=== PATIENT | male | born 1955 | race Caucasian/White ===

== ENCOUNTER 2021-06-05 15:52 | Inpatient (IN) | payer MEDICARE, SELFPAY ==
[2021-06-05] VITALS (7 sets, daily range): BP systolic 107–126; BP diastolic 53–74; PULSE 40–153; RESP 18–26; TEMP 36.3–37.1; O2SAT 94–99; BMI 34.7; BMI 34.2
--- NOTE | 2021-06-05 15:57 | EKG12_ITS ---
Test Reason : NAUSEA Blood Pressure : / mmHG Vent. Rate : 147 BPM Atrial Rate : 147 BPM P-R Int : 148 ms QRS Dur : 068 ms QT Int : 260 ms P-R-T Axes : 019 001 053 degrees QTc Int : 406 ms Sinus tachycardia Poor R wave progression Confirmed by AQUILES VALDES, KOJO ([id number]), scientific publications editor LOLI MAGAÑA ([id number]) on 06/06/2021 8:39:38 AM Referred By: KIEL Confirmed By:KOJO KWAN MD
--- NOTE | 2021-06-05 16:00 | CT_ITS ---
EXAM: CT HEAD WITHOUT INTRAVENOUS CONTRAST : 1955 CLINICAL INDICATION: Trauma TECHNIQUE: Multiple axial images were obtained of the head without intravenous contrast. This CT exam was performed using one or more of the following dose reduction techniques: automated exposure control, adjustment of the mA and/or kV according to patient size, and/or use of iterative reconstruction technique. This report was created using Mobile[employer] report generation technology. COMPARISON: None. FINDINGS: BRAIN AND EXTRA-AXIAL SPACES: Ventricles and cortical sulci are prominent in size related to volume loss change. No intra- or extra-axial hemorrhage. No evidence of acute infarct. No intracranial mass or mass effect. There is preservation of the aguilar/white matter interface. Posterior fossa structures are unremarkable. Basal cisterns are patent. BONES/JOINTS: Unremarkable. No discrete lytic or blastic abnormalities. SINUSES: Unremarkable as visualized. Clear. MASTOID AIR CELLS: Unremarkable. Clear. ORBITS: Visualized globes, extraocular muscles, optic nerves and retrobulbar fat appear unremarkable. CT/Brain/Head without Contrast IMPRESSION: No acute abnormality. Individualized dose optimization techniques were used for this CT. at 1652 Reported and signed by: Claude Henderson MD Electronically Signed: Claude Henderson MD at 16:50 EDT Tel , Service support ,
[2021-06-05 18:56] LABS: Bedside Glucose 177 mg/dL (70-110)
--- NOTE | 2021-06-05 19:06 | RAD_ITS ---
EXAM: XR CHEST, 1 VIEW CLINICAL INDICATION: syncope TECHNIQUE: Frontal view of the chest. This report was created using [employer]imus report generation technology. COMPARISON: None. FINDINGS: LUNGS AND PLEURAL SPACES: Unremarkable. No consolidation or edema. No pneumothorax. No effusion. HEART: Unremarkable. Cardiac silhouette not enlarged. MEDIASTINUM: Central airways and mediastinal contour are unremarkable. BONES/JOINTS: Unremarkable. SOFT TISSUES: Unremarkable. RAD/Chest 1 View (Portable) IMPRESSION: No radiographic evidence of acute cardiopulmonary disease. Electronically Signed: Anderson Jara MD at 20:19 EDT , Service support ,
--- NOTE | 2021-06-05 19:07 | EKG12_ITS ---
Test Reason : DYSRHYTHMIA Blood Pressure : / mmHG Vent. Rate : 140 BPM Atrial Rate : 140 BPM P-R Int : 162 ms QRS Dur : 068 ms QT Int : 262 ms P-R-T Axes : 045 009 069 degrees QTc Int : 399 ms Sinus tachycardia Low voltage QRS Poor R wave progression Confirmed by AQUILES VALDES, KOJO ([id number]), editor department LOLI MAGAÑA ([id number]) on 06/08/2021 10:12:40 AM Referred By: ERNESTO Confirmed By:KOJO KWAN MD
--- NOTE | 2021-06-05 19:09 | EDS_ITS ---
HPI History of Present Illness Chief Complaint: Syncope Informant: patient and spouse/S.O. Narrative Narrative: Patient and spouse poor historian with medical history. Reports last 2 days vomiting and diarrhea had noted dark color and appeared bloody. Multiple ones over last 2 days. Today lightheaded in the bathroom passing out hitting his head. Spouse states he passed out a couple more times since that. Denies chest pains or shortness of breath. When asked about blood thinners they are unaware however from review of his medical records here there is no anticoagulation medications. He reports he was referred to Dr. Ansari 2 weeks ago due to reporting blood from vomit and stools. Reports had an upper and lower endoscopy with no acute findings. Denies abdominal pain. Reports current nausea. Denies urinary symptoms. Prior similar symptoms: Yes PFSH PFSH Medical History unable to obtain Home Medications allopurinol 100 mg PO BID 06/05/21 [History Last Taken 06/03/21] atenolol 50 mg PO BID 06/05/21 [History Last Taken 06/03/21] chlorthalidone 25 mg PO DAILY 06/05/21 [History Last Taken 06/03/21] hydrocodone-acetaminophen [[place]] 1 tab PO BID PRN 06/05/21 [History Last Taken Unknown] losartan 100 mg PO DAILY 06/05/21 [History Last Taken 06/03/21] metformin 500 mg PO BID 06/05/21 [History Last Taken 06/03/21] Allergy/AdvReac Type Severity Reaction Status Date / Time No Known Allergies Allergy Verified 06/05/21 15:54 Social History Smoking Status: Former smoker ROS ROS ED Constitutional Constitutional ED: Denies chills, fever(s) or sweats Eyes Eyes: Denies change in vision ENT ENT ED: Denies dysphagia or sore throat Cardiovascular Cardiovascular: Denies chest pain, leg edema, palpitations or racing heartbeat Respiratory/Chest Respiratory/Chest: Denies cough, dyspnea or dyspnea on exertion Gastrointestinal Gastrointestinal: Reports nausea and other Details: Bloody vomit and stools. ; Denies abdominal pain, diarrhea or vomiting Genitourinary Genitourinary ED: Denies dysuria, hematuria or urinary frequency Musculoskeletal Musculoskeletal: Denies back pain, extremity pain or neck pain Integumentary Denies rash or wounds Neurologic Neurologic: Denies headache(s), paresthesias or weakness EXAM Physical Exam Const Vital Signs: 06/05/21 15:54 06/05/21 18:57 06/05/21 20:31 Temperature 97.4 F L Temperature Source Temporal Pulse Rate 153 H 40 L 138 H Respiratory Rate 20 H 18 26 H Respiratory Effort Normal Non-Labored Blood Pressure 125/74 H 118/60 107/61 Blood Pressure Mean 91 79 76 Pulse Ox 99 99 95 Oxygen Delivery Method Room Air Room Air Room Air Positive well nourished and well developed Constitutional Narrative: GCS 15. General Appearance ED: well developed and NAD HEENT Reports moist mucous membranes HEENT Narrative: Left forehead contusion with abrasion. No hemotympanum. normocephalic and atraumatic Eyes PERRL, EOMs intact bilaterally and conjunctivae normal General Eye ED: Yes normal appearance of both eyes and pale conjunctiva Neck no lymphadenopathy and supple General: Negative for tenderness Chest Wall inspection of chest normal Chest: Negative for tenderness Resp normal respiratory effort and normal air movement Effort and Inspection: symmetric chest movement; Negative for respiratory distress Cardio regular rhythm and no murmurs Rate: tachycardic Peripheral Pulses: pulses 2+ throughout GI normal to inspection, nondistended, normoactive bowel sounds and non-tender GI Narrative: Rectal exam no hemorrhoids, no gross bloody stools, dark liquid stools on finger, guaiac pending. Palpation: Negative for guarding or rebound tenderness present Back/Spine no CVA tenderness and no thoracic nor lumbar tenderness Extremity normal to inspection General Extremety ED: Negative for edema or tenderness General Extremity: Negative for edema Neuro oriented x3 and no sensory deficits noted Sensorium / Orientation: awake and alert Skin no rashes or lesions noted and no wounds MDM MDM MDM Narrative Medical decision making narrative: Patient tachycardic dry mucosal membranes give additional IV fluids her heart rate went down to the 130s. EKG sinus tachycardia concerns for potential underlying flutter there is no 5 mg IV Lopressor heart rate went down to the 100s however there was no flutter findings. Hemoccult was positive. Hemoglobin 8.4 with no old for comparison. Labs creatinine of 1.8. Potassium 5.6. Blood pressure stable at this time. Head CT was obtained negative for intracranial process. Chest x-ray negative. Will type and screen. Discussed with hospitalist Dr. Hoyt for admission to PCU. Lab Data Labs: Laboratory Results - last 24 hr 06/05/21 06/05/21 06/05/21 18:48 18:48 18:48 WBC 8.3 RBC 2.28 L Hgb 8.4 L Hct 24.9 L MCV 109.2 H MCH 36.8 H MCHC 33.7 RDW Std Deviation 57.5 H RDW Coeff of Ana 14.5 Plt Count 131 L MPV 11.9 PT 20.4 H INR 1.8 APTT 31.5 Sodium Potassium Chloride Carbon Dioxide Anion Gap BUN Creatinine Estim Creat Clear Calc Est GFR (MDRD) Af Amer Est GFR (MDRD) Non-Af BUN/Creatinine Ratio Glucose Calcium Total Bilirubin AST ALT Alkaline Phosphatase Total Protein Albumin Globulin Albumin/Globulin Ratio Urine Color Urine Clarity Urine pH Ur Specific [place] Urine Protein Urine Glucose (UA) Urine Ketones Urine Occult Blood Urine Nitrite Urine Bilirubin Urine Urobilinogen Ur Leukocyte Esterase Urine RBC Urine WBC Ur Squamous Epith Cells Urine Bacteria Urine Mucus POC Glucose 177 H 06/05/21 06/05/21 18:48 19:21 WBC RBC Hgb Hct MCV MCH MCHC RDW Std Deviation RDW Coeff of Ana Plt Count MPV PT INR APTT Sodium 137 Potassium 5.6 H Chloride 102 Carbon Dioxide 21.0 Anion Gap 14 BUN 51 H Creatinine 1.86 H Estim Creat Clear Calc 40.88 Est GFR (MDRD) Af Amer 47 L Est GFR (MDRD) Non-Af 39 L BUN/Creatinine Ratio 27.4 H Glucose 185 H Calcium 9.2 Total Bilirubin 4.10 H AST 55 H ALT 31 Alkaline Phosphatase 65 Total Protein 6.4 Albumin 2.3 L Globulin 4.1 Albumin/Globulin Ratio 0.6 L Urine Color Dk Yello Urine Clarity Clear Urine pH 5.0 Ur Specific [place] 1.015 Urine Protein 15 H Urine Glucose (UA) Normal Urine Ketones 50 H Urine Occult Blood 10 H Urine Nitrite Negative Urine Bilirubin Negative Urine Urobilinogen Normal Ur Leukocyte Esterase 25 H Urine RBC 0 SEEN Urine WBC 0 SEEN Ur Squamous Epith Cells 0-5 SEEN Urine Bacteria 1+ Urine Mucus 0 SEEN POC Glucose Radiography Chest X-Ray - ED: 1 View, Read by ED Physician and Read by Radiologist Diagnostic Testing: Radiology Impression Brain CT 06/05/21 16:00 IMPRESSION: No acute abnormality. Individualized dose optimization techniques were used for this CT. at 1652 Reported and signed by: Claude Henderson MD Electronically Signed: Claude Henderson MD at 16:50 EDT Tel , Service support , Chest X-Ray 06/05/21 19:06 IMPRESSION: No radiographic evidence of acute cardiopulmonary disease. Electronically Signed: Anderson Jara MD at 20:19 EDT , Service support , EKG Initial EKG: Attestation: I personally reviewed and interpreted this EKG as follows: Comments: Sinus tachycardia rate of 147, no ST or T wave changes. Discharge Plan Dx/Rx/DC Orders Clinical Impression: Syncope, GIB (gastrointestinal bleeding), Tachycardia, Anemia, MARIA DEL ROSARIO (acute kidney injury), CHI (closed head injury) Disposition Disposition: Acute Care Hospital [facility] Discharge Date/Time: 06/05/21 22:35
[2021-06-05] MEDS: Ondansetron 4 MG/2 ML Vial IV (19:19)
[2021-06-05 19:23] LABS: Hematocrit 24.9 % (40-54); Hemoglobin 8.4 g/dL (13.0-16.5); Mean Corp Hgb Conc 33.7 g/dL (32-36); Mean Corpuscular Hgb 36.8 pg (27.0-32.0); Mean Corpuscular Volume 109.2 fL (80-94); Mean Platelet Vol. 11.9 fl (6.2-12.0); Platelet Count 131 K/mm3 (150-450); RBC Distribution Width CV 14.5 % (11.6-14.6); RBC Distribution Width SD 57.5 fl (35.1-43.9); Red Blood Count 2.28 M/mm3 (4.6-6.2); White Blood Count 8.3 K/mm3 (4.4-11.0)
[2021-06-05 19:33] LABS: ALB/GLOB Ratio 0.6 RATIO (0.9-2.4); AST(SGOT) 55 U/L (15-37); Alanine Aminotransfer ALT/SGPT 31 U/L (16-61); Albumin, Serum 2.3 g/dL (3.2-5.0); Alkaline Phosphatase 65 U/L (45-117); Anion Gap 14 (5-15); BUN 51 mg/dL (7-18); BUN/Creat Ratio 27.4 RATIO (10-20); Calcium,Total 9.2 mg/dL (8.5-10.1); Chloride 102 mmol/L (98-107); Creatinine, Serum 1.86 mg/dL (0.70-1.30); EST Glomerular Filtration Rate 39 mL/min (>60); Est Glom Filt Rate - Afr Amer 47 mL/min (>60); Estimated Creatinine Clearance 40.88 ml/min; Globulin 4.1 g/dL (2.2-4.2); Glucose 185 mg/dL (74-106); Potassium 5.6 mmol/L (3.5-5.1); Protein, Total 6.4 g/dL (6.4-8.2); Sodium Level 137 mmol/L (136-145)
[2021-06-05 19:34] LABS: International Normalized Ratio 1.8; Prothrombin Time (Protime)PT. 20.4 SECONDS (11.7-14.9)
[2021-06-05 19:35] LABS: Partial Thromboplast Time 31.5 Seconds (24.1-36.2)
[2021-06-05 19:37] LABS: Mucous, Urine 0 SEEN /hpf (<or=2+); Red Blood Cells-Urine 0 SEEN /hpf (0-5); White Blood Cells 0 SEEN /hpf (0-5)
[2021-06-05 19:39] LABS: Glucose, Dipstick Normal (Normal); Ketone-Dipstick 50 mg/dl (Negative); Leukocyte Esterase-Dipstick 25 /ul (Negative); Nitrite-Dipstick Negative (Negative); Occult Blood-Urine 10 /ul (Negative); Protein-Dipstick 15 mg/dl (Negative); Specific Gravity, Urine 1.015 (1.002-1.030); Urine Bilirubin Dipstick Negative (Negative); Urine Urobilinogen Normal (Normal)
[2021-06-05 19:46] LABS: Color, Urine Dk Yello (Yellow)
[2021-06-05 19:47] LABS: Urine Clarity Clear (Clear)
[2021-06-05 20:39] LABS: Bacteria 1+ /hpf (None Seen); Squamous Epithelial Cells - UA 0-5 SEEN /hpf (0-5)
[2021-06-05] MEDS: Metoclopramide 10 MG/2 ML Vial 5 MG IV (20:43)
[2021-06-05] MEDS: Metoprolol Tartrate 5 MG/5 ML Vial IV (20:44)
--- NOTE | 2021-06-05 21:10 | HP.PCM_ITS ---
HPI - General HPI Narrative MERCEDES SHEPARD, is a 65 M who presents to the emergency room with a chief complaint of passing out hitting his head. The patient has had hematemesis and hematochezia today. The patient had a negative upper and lower endoscopy several weeks ago by Dr. Dunia Ansari. His current hemoglobin is 8.4. He denies any chest pain shortness of breath and fevers or chills. He has a negative rapid Covid test here in the emergency room he will be admitted for gastrointestinal bleed. [facility] Medical History unable to obtain Home Medications allopurinol 100 mg PO BID 06/05/21 [History Last Taken 06/03/21] atenolol 50 mg PO BID 06/05/21 [History Last Taken 06/03/21] chlorthalidone 25 mg PO DAILY 06/05/21 [History Last Taken 06/03/21] hydrocodone-acetaminophen [[place]] 1 tab PO BID PRN 06/05/21 [History Last Taken Unknown] losartan 100 mg PO DAILY 06/05/21 [History Last Taken 06/03/21] metformin 500 mg PO BID 06/05/21 [History Last Taken 06/03/21] Allergy/AdvReac Type Severity Reaction Status Date / Time No Known Allergies Allergy Verified 06/05/21 15:54 Social History Smoking Status: Former smoker ROS Constitutional Constitutional: Denies chills or fever(s) ENT HEENT: Denies dysphagia Cardiovascular Cardiovascular: Denies chest pain Respiratory/Chest Respiratory/Chest: Reports hemoptysis; Denies shortness of breath at rest Gastrointestinal Gastrointestinal: Reports hematemesis and hematochezia; Denies abdominal pain Genitourinary Genitourinary: Denies dysuria Musculoskeletal Musculoskeletal: Denies back pain Integumentary Integumentary: Denies jaundice Neurologic Neurologic: Denies abnormal speech Psychiatric Psychiatric: Denies anxiety Vital Signs Vital Signs Vital Signs: 06/05/21 15:54 06/05/21 18:57 06/05/21 20:31 Temperature 97.4 F L Temperature Source Temporal Pulse Rate 153 H 40 L 138 H Respiratory Rate 20 H 18 26 H Respiratory Effort Normal Non-Labored Blood Pressure 125/74 H 118/60 107/61 Blood Pressure Mean 91 79 76 Pulse Ox 99 99 95 Oxygen Delivery Method Room Air Room Air Room Air Weight Weight: 242 lb Body Mass Index (BMI) 34.7 Physical Exam Const alert, oriented x3 and no apparent distress General Appearance: cooperative HEENT normocephalic and head/scalp atraumatic Eyes PERRL Neck supple Lymph Lymphatic: no lymphadenopathy noted Resp normal respiratory effort, normal air movement and clear to auscultation bilaterally Cardio S1 normal heart sound, S2 normal heart sound and no murmurs Rate: tachycardic GI soft to palpation and non-tender Extremity normal capillary refill Skin Skin Narrative: contusion on forehead Neuro CN's II-XII intact bilaterally Psych affect normal Appearance: appropriate Results Lab / Micro Data Result Diagrams: 06/05/21 18:48 06/05/21 18:48 Labs: Laboratory Results - last 24 hr 06/05/21 18:48: POC Glucose 177 H 06/05/21 18:48: WBC 8.3, RBC 2.28 L, Hgb 8.4 L, Hct 24.9 L, MCV 109.2 H, MCH 36.8 H, MCHC 33.7, RDW Std Deviation 57.5 H, RDW Coeff of Ana 14.5, Plt Count 131 L, MPV 11.9 06/05/21 18:48: PT 20.4 H, INR 1.8, APTT 31.5 06/05/21 18:48: Sodium 137, Potassium 5.6 H, Chloride 102, Carbon Dioxide 21.0, Anion Gap 14, BUN 51 H, Creatinine 1.86 H, Estim Creat Clear Calc 40.88, Est GFR (MDRD) Af Amer 47 L, Est GFR (MDRD) Non-Af 39 L, BUN/Creatinine Ratio 27.4 H, Glucose 185 H, Calcium 9.2, Total Bilirubin 4.10 H, AST 55 H, ALT 31, Alkaline Phosphatase 65, Total Protein 6.4, Albumin 2.3 L, Globulin 4.1, Albumin/Globulin Ratio 0.6 L 06/05/21 19:21: Urine Color Dk Yello, Urine Clarity Clear, Urine pH 5.0, Ur Specific [place] 1.015, Urine Protein 15 H, Urine Glucose (UA) Normal, Urine Ketones 50 H, Urine Occult Blood 10 H, Urine Nitrite Negative, Urine Bilirubin Negative, Urine Urobilinogen Normal, Ur Leukocyte Esterase 25 H, Urine RBC 0 SEEN, Urine WBC 0 SEEN, Ur Squamous Epith Cells 0-5 SEEN, Urine Bacteria 1+, Urine Mucus 0 SEEN Micro: Microbiology 06/05/21 19:21 Stool Stool Occult Blood (ABRAHAM) - Final Occult Blood Positive 06/05/21 19:21 Nasal Secretion SARS-CoV-2 Antigen (Rapid) - Final Radiology Impression Brain CT 06/05/21 16:00 IMPRESSION: No acute abnormality. Individualized dose optimization techniques were used for this CT. at 1652 Reported and signed by: Claude Henderson MD Electronically Signed: Claude Henderson MD at 16:50 EDT Tel , Service support , Chest X-Ray 06/05/21 19:06 IMPRESSION: No radiographic evidence of acute cardiopulmonary disease. Electronically Signed: Anderson Jara MD at 20:19 EDT , Service support , Assessment & Plan Assessment/Plan (1) GIB (gastrointestinal bleeding): (2) Tachycardia: (3) Syncope: (4) Anemia: PLAN: 1. Gastrointestinal bleed?admit patient to progressive care unit, consult Dr. Leon for GI evaluation, make patient n.p.o., IV Protonix 40 mg twice daily, type cross and screen 2 units packed red blood cells, H&H every 4 hours. Will add total iron binding capacity, serum ferritin and total iron prior to transfusion, CBC, CMP, PT/INR repeat in the morning 2. Tachycardia secondary to anemia 3. Syncopal episode?suspect secondary to above 4. DVT prophylaxis?SCDs? Charges/Coding Visit Charges Inpatient E&M: 91326 Init Hosp L2
--- NOTE | 2021-06-05 22:30 | ED.RN ---
assisted to BSC, large tarry black stool.
[2021-06-05 22:42] LABS: Ferritin 1017 ng/mL (26-388); Iron 195 ug/dL (65-175); Iron Binding Capacity,Total 207 ug/dL (250-450)
[2021-06-05] MEDS: 0.9% Saline Lock 10 ML Syringe IV (23:38)
[2021-06-05] MEDS: 0.9% Normal Saline 1,000 ML 125 ML IV (23:38)
[2021-06-06] VITALS (26 sets, daily range): BP systolic 95–144; BP diastolic 54–75; PULSE 110–152; RESP 12–20; TEMP 36.2–37.2; O2SAT 90–98
[2021-06-06 01:01] LABS: Hemoglobin 7.7 g/dL (13.0-16.5)
[2021-06-06 04:16] LABS: Absolute Lymphocyte Count 1.37 X10^3/uL (0.83-4.51); Absolute Neutrophil Count 6.2 X10^3/uL (2.0-7.7); Eosinophil# 0.01 X10^3/uL; Eosinophils% 0.1 % (0-5); Hematocrit 21.2 % (40-54); Hemoglobin 7.3 g/dL (13.0-16.5); Lymphocyte # 1.37 X10^3/ul (0.83-4.51); Lymphocyte % 16.1 % (19-41); Mean Corp Hgb Conc 34.4 g/dL (32-36); Mean Corpuscular Hgb 37.1 pg (27.0-32.0); Mean Corpuscular Volume 107.6 fL (80-94); Mean Platelet Vol. 11.3 fl (6.2-12.0); Monocyte# 0.85 X10^3/uL; NRBC Flagged by Analyzer 0 % (0-5); Neutrophil # 6.23 X10^3/uL (2.7-7.7); Neutrophil % 73.3 % (47-70); Platelet Count 112 K/mm3 (150-450); RBC Distribution Width CV 14.7 % (11.6-14.6); RBC Distribution Width SD 57.6 fl (35.1-43.9); Red Blood Count 1.97 M/mm3 (4.6-6.2); White Blood Count 8.5 K/mm3 (4.4-11.0)
[2021-06-06 04:35] LABS: ALB/GLOB Ratio 0.6 RATIO (0.9-2.4); AST(SGOT) 52 U/L (15-37); Alanine Aminotransfer ALT/SGPT 28 U/L (16-61); Albumin, Serum 2.1 g/dL (3.2-5.0); Alkaline Phosphatase 57 U/L (45-117); Anion Gap 9 (5-15); BUN 56 mg/dL (7-18); BUN/Creat Ratio 32.2 RATIO (10-20); Calcium,Total 8.7 mg/dL (8.5-10.1); Chloride 108 mmol/L (98-107); Creatinine, Serum 1.74 mg/dL (0.70-1.30); EST Glomerular Filtration Rate 42 mL/min (>60); Est Glom Filt Rate - Afr Amer 51 mL/min (>60); Globulin 3.8 g/dL (2.2-4.2); Glucose 155 mg/dL (74-106); Magnesium 1.2 mg/dL (1.6-2.6); Potassium 5.3 mmol/L (3.5-5.1); Protein, Total 5.9 g/dL (6.4-8.2); Sodium Level 138 mmol/L (136-145)
[2021-06-06 05:07] LABS: International Normalized Ratio 1.8; Prothrombin Time (Protime)PT. 20.4 SECONDS (11.7-14.9)
--- NOTE | 2021-06-06 07:35 | US_ITS ---
STUDY: ABDOMINAL ULTRASOUND - RIGHT UPPER QUADRANT REASON FOR VISIT: Male, 65 years old upper GI bleed and possible cirrhosis TECHNIQUE: Ultrasound evaluation of the right upper quadrant was performed with real-time and static aguilar-scale imaging. TECHNICAL QUALITY: Adequate. COMPARISON: None. FINDINGS: Limited study due to patient''s body habitus. Liver: The liver measures 15.8 cm. The liver demonstrates increased heterogeneous echogenicity with mild irregularity along its margins suggestive of cirrhotic changes.. The bile ducts are within normal limits. There is hepatic color flow. The direction of portal flow is hepatopetal. There is no demonstrated mass lesion. Gallbladder: The gallbladder was not visualized, patient denies abdominal surgery. Common Bile Duct (C.B.D.): The common bile duct measures 3 mm. Right Kidney: Normal size of the right kidney. The right kidney measures 10.3 x 5.3 x 5.0 cm. Normal renal cortex. The right cortex measures 1.4 cm. Simple cortical cyst visualized measuring 1.7 x 1.3 x 1.4 cm. There is no demonstrated renal mass. There is no right hydronephrosis. US/Liver IMPRESSION: Hepatic steatosis with suggestion of cirrhosis with no evidence of hepatic masses. 1.7 cm simple cortical cyst in the right kidney. No evidence of acute abdominal pathology. Electronically Signed: Rodney Crowley MD at 15:23 EDT Tel , Service support ,
--- NOTE | 2021-06-06 10:25 | CASEMGMT ---
FRANCISCO MEHTA assessment: Face to Face with patient for initial transition planning/care coordination assessment. FRANCISCO MEHTA introduced self and role at [facility], pt voices understanding and consents to assessment. Pt is sitting up in bed on room air in no distress. Pt w/ multiple abrasions to left forehead s/p syncope/fall. Pt is A/O x4 and answers all questions appropriately. Care providers, pharmacy, and demographics verified. Presentation: Pt brought in by EMS for syncope w/ fall,, head injury-pt w/ dark vomit in triage Admitting dx: Syncope, GI bleeding PCP: Samm Specialists: Elan, surgeon, multiple other [facility] physicians Preferred [facility]acy: [facility] Insurance: [facility] A/B Prescription Benefit: No Rx coverage and states no concerns with getting meds. Living Will/HPOA: Pt states does not have LW/HPOA but is interested in AD info. AD info provided. LNOK: Tamy Salcido, Living Arrangements: Pt lives with in 2 story home and states no concerns at home. Pt is independent with ADL's. Transportation: Pt drives self and states no transportation concerns. DME/HHC: Pt states no current DME or need for any further DME. Pt states no hx of HHC or SNF. Pt states no concerns with going home at time of discharge. 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 Pt states does not smoke cigarettes or drink ETOH. Pt voices no further concerns/needs. CM to follow for any further discharge planning/needs. Advised pt to ask for CM if any further questions/concerns/needs arise, voices understanding. Pt Goal: Home Plan[place] FRANCISCO MEHTA
--- NOTE | 2021-06-06 12:17 | PCM.PN.HOSP ---
Documented by User: Colton ALONZO 06/06/21 12:28 Subjective Subjective Patient is a 65-year-old male comfortably resting in bed, alert and orient x3. Patient denies development of any new symptoms overnight and does not appear to be in acute distress. Denies chest pain, shortness of breath, palpitations, hemoptysis, sputum production, fever, chills, N/V/D. Objective Data Objective Data Vital Signs: Vital Signs Temp Pulse Resp BP Pulse Ox 98.6 F 127 H 16 139/74 H 97 06/06/21 12:07 06/06/21 12:07 06/06/21 12:07 06/06/21 12:07 06/06/21 12:07 Oxygen Delivery Method Room Air Weight: 238 lb 12.17 oz Body Mass Index (BMI) 34.2 Intake & Output: Intake and Output for Last 24 Hours 06/04/21 06/05/21 06/06/21 23:59 23:59 23:59 Intake Total 600 / 600 1328.75 / 1328.75 Output Total 400 / 400 Balance 600 / 400 928.75 / 928.75 Lab / Micro Data Result Diagrams: 06/06/21 03:54 06/06/21 03:54 Labs: Laboratory Results - last 24 hr 06/05/21 18:48: POC Glucose 177 H 06/05/21 18:48: WBC 8.3, RBC 2.28 L, Hgb 8.4 L, Hct 24.9 L, MCV 109.2 H, MCH 36.8 H, MCHC 33.7, RDW Std Deviation 57.5 H, RDW Coeff of Ana 14.5, Plt Count 131 L, MPV 11.9 06/05/21 18:48: PT 20.4 H, INR 1.8, APTT 31.5 06/05/21 18:48: Sodium 137, Potassium 5.6 H, Chloride 102, Carbon Dioxide 21.0, Anion Gap 14, BUN 51 H, Creatinine 1.86 H, Estim Creat Clear Calc 40.88, Est GFR (MDRD) Af Amer 47 L, Est GFR (MDRD) Non-Af 39 L, BUN/Creatinine Ratio 27.4 H, Glucose 185 H, Calcium 9.2, Total Bilirubin 4.10 H, AST 55 H, ALT 31, Alkaline Phosphatase 65, Total Protein 6.4, Albumin 2.3 L, Globulin 4.1, Albumin/Globulin Ratio 0.6 L 06/05/21 19:21: Urine Color Dk Yello, Urine Clarity Clear, Urine pH 5.0, Ur Specific [place] 1.015, Urine Protein 15 H, Urine Glucose (UA) Normal, Urine Ketones 50 H, Urine Occult Blood 10 H, Urine Nitrite Negative, Urine Bilirubin Negative, Urine Urobilinogen Normal, Ur Leukocyte Esterase 25 H, Urine RBC 0 SEEN, Urine WBC 0 SEEN, Ur Squamous Epith Cells 0-5 SEEN, Urine Bacteria 1+, Urine Mucus 0 SEEN 06/05/21 22:00: Blood Type O POSITIVE, Antibody Screen NEGATIVE 06/05/21 22:00: Iron 195 H, TIBC 207 L, Ferritin 1017 H 06/05/21 22:00: Crossmatch See Detail 06/06/21 00:36: Hgb 7.7 L, Hct 23.0 L 06/06/21 03:54: WBC 8.5, RBC 1.97 L, Hgb 7.3 L, Hct 21.2 L, MCV 107.6 H, MCH 37.1 H, MCHC 34.4, RDW Std Deviation 57.6 H, RDW Coeff of Ana 14.7 H, Plt Count 112 L, MPV 11.3, Immature Gran % (Auto) 0.500, Neut % (Auto) 73.3 H, Lymph % (Auto) 16.1 L, [place] % (Auto) 10.0, Eos % (Auto) 0.1, Baso % (Auto) 0.0, Absolute Neuts (auto) 6.2, Absolute Lymphs (auto) 1.37, Nucleated RBC % 0 06/06/21 03:54: Sodium 138, Potassium 5.3 H, Chloride 108 H, Carbon Dioxide 21.0, Anion Gap 9, BUN 56 H, Creatinine 1.74 H, Estim Creat Clear Calc 43.70, Est GFR (MDRD) Af Amer 51 L, Est GFR (MDRD) Non-Af 42 L, BUN/Creatinine Ratio 32.2 H, Glucose 155 H, Calcium 8.7, Magnesium 1.2 L, Total Bilirubin 3.20 H, AST 52 H, ALT 28, Alkaline Phosphatase 57, Total Protein 5.9 L, Albumin 2.1 L, Globulin 3.8, Albumin/Globulin Ratio 0.6 L 06/06/21 03:54: PT 20.4 H, INR 1.8 Micro: Microbiology 06/05/21 19:21 Stool Stool Occult Blood (ABRAHAM) - Final Occult Blood Positive 06/05/21 19:21 Nasal Secretion SARS-CoV-2 Antigen (Rapid) - Final Radiography Diagnostic Testing: Radiology Impression Brain CT 06/05/21 16:00 IMPRESSION: No acute abnormality. Individualized dose optimization techniques were used for this CT. at 1652 Reported and signed by: Claude Henderson MD Electronically Signed: Claude Henderson MD at 16:50 EDT Tel , Service support , Chest X-Ray 06/05/21 19:06 IMPRESSION: No radiographic evidence of acute cardiopulmonary disease. Electronically Signed: Anderson Jara MD at 20:19 EDT , Service support , Physical Exam Const alert, oriented x3 and no apparent distress HEENT HEENT Narrative: 6 cm bruise on the left side of patient's forehead. Head and Scalp: normocephalic Eyes PERRL, EOMs intact bilaterally and conjunctivae normal Neck no lymphadenopathy, supple and no JVD Resp normal respiratory effort, no retractions, no use of accessory muscles and clear to auscultation bilaterally Cardio no murmurs, no JVD and peripheral pulses 2+ throughout Rate: tachycardic GI normal to inspection, nondistended, normoactive bowel sounds, soft to palpation and non-tender Extremity normal to inspection, full ROM and no clubbing, cyanosis or edema Skin no rashes or lesions noted, no wounds and skin turgor normal Neuro CN's II-XII intact bilaterally Psych affect normal Assessment & Plan Assessment/Plan (1) Anemia: (2) Syncope: (3) Tachycardia: (4) GIB (gastrointestinal bleeding): PLAN: Day 1 Discharge plan: Current plan is for patient to discharge home 1) GI Bleed Presented to the hospital on 06/05 with episodes of hematemesis and hematochezia. Dr. Leon consulted on admission. Currently awaiting results from liver ultrasound. Patient's hemoglobin dropped from 8.4 on admission to 7.3 this morning. 1 unit of PRBCs currently transfusing, IV fluids and PPI initiated on admission. 2) Anemia in the setting of GI bleed Hemoglobin currently 7.3, after dropping from 8.4 on admission. Currently transfusing 1 unit of PRBCs, serial H&H's ordered, patient's heart rate is elevated but BP is currently stable. Continue trending H&H, CBC in a.m. 3) tachycardia Secondary to anemia, continue admission to PCU for continued cardiac monitoring. 4) syncopal episode with fall Syncopal episode likely secondary to the above. Patient has a 6 cm bruise on the left side of his forehead. Patient denies any focal neurological deficits or complaints. Brain CT obtained on admission and did not demonstrate any acute abnormality. DVT prophylaxis - not indicated Patient seen by Colton Munoz PA-C, under the supervision of Dr. Vigil. Documented by User: Dr. Curt Vigil, 06/06/21 15:16 Subjective Subjective Feels well at present. Objective Data Lab / Micro Data Result Diagrams: 06/06/21 03:54 06/06/21 03:54 Physical Exam Const alert Resp normal respiratory effort, no retractions, no use of accessory muscles and clear to auscultation bilaterally Cardio regular rate, regular rhythm, S1 normal heart sound and S2 normal heart sound GI normal to inspection, nondistended, normoactive bowel sounds, soft to palpation, non-tender and non-distended Extremity normal to inspection Neuro Sensorium / Orientation: awake and alert Assessment & Plan Assessment/Plan (1) Anemia: (2) Syncope: (3) Tachycardia: (4) GIB (gastrointestinal bleeding): PLAN: Patient seen and examined independently. Data and vitals reviewed. I agree with the above note by the physician operations assistant. 1. GI bleed Currently resolved at present GI consult 2. Acute blood loss anemia Status post 2 units Continue to monitor Charges/Coding Visit Charges Inpatient E&M: 45514 Subs Hosp L2
[2021-06-06] MEDS: Lactated Ringers 1,000 ML 100 ML IV (14:00)
--- NOTE | 2021-06-06 14:29 | PCS.PANDOC ---
PANDEMIC DOCUMENTATION INITIATED: Date: 04/17/2021 Time: 190
--- NOTE | 2021-06-06 15:12 | OP.CCLET_ITS ---
05/03/2022 Anthony Quijano Re : Upper GI endoscopy procedure for Julia Salcido Alvinar Samm This procedure was performed on Sunday, June 06, 2021. My impressions and recommendations are as follows: Impressions : - Recently bleeding grade II esophageal varices. Completely eradicated. Banded. - Portal hypertensive gastropathy. - Normal second portion of the duodenum. - No specimens collected. Recommendations : - [facility]. - Clear liquid diet today. - Continue present medications. My findings are described in the full procedure note, which is enclosed. If I can be of further assistance, please feel free to contact me at . Sincerely, Jerry Leon, 06/06/2021 3:12:01 PM This report has been signed electronically.
--- NOTE | 2021-06-06 15:12 | OP.EGD_ITS ---
Patient Name: Julia Salcido Procedure Date: 06/06/2021 2:38 PM Date of : 1955 Age: 65 Procedure: Upper GI endoscopy Indications: Hematemesis Providers: Jerry Leon DO Medicines: Monitored Anesthesia Care Patient Profile: This is a 65 year old male. Refer to note in patient chart for documentation of history and physical. Patient has symptoms of acute vomiting. He is status post EGD (normal) one year ago. Complications: No immediate complications. Procedure: Pre-Anesthesia Assessment: - Prior to the procedure, a History and Physical was performed, and patient medications and allergies were reviewed. The patient is competent. The risks and benefits of the procedure and the sedation options and risks were discussed with the patient. All questions were answered and informed consent was obtained. Patient identification and proposed procedure were verified by the physician in the pre-procedure area. Mental Status Examination: normal. Airway Examination: normal oropharyngeal airway and neck mobility. Respiratory Examination: clear to auscultation. CV Examination: tachycardia noted. Prophylactic Antibiotics: The patient does not require prophylactic antibiotics. Prior Anticoagulants: The patient has taken no previous anticoagulant or antiplatelet agents. ASA Grade Assessment: II - A patient with mild systemic disease. After reviewing the risks and benefits, the patient was deemed in satisfactory condition to undergo the procedure. The anesthesia plan was to use moderate sedation / analgesia (conscious sedation). Immediately prior to administration of medications, the patient was re-assessed for adequacy to receive sedatives. The heart rate, respiratory rate, oxygen saturations, blood pressure, adequacy of pulmonary ventilation, and response to care were monitored throughout the procedure. The physical status of the patient was re-assessed after the procedure. After obtaining informed consent, the endoscope was passed under direct vision. Throughout the procedure, the patient's blood pressure, pulse, and oxygen saturations were monitored continuously. The gastroscope was introduced through the mouth, and advanced to the second part of duodenum. The upper GI endoscopy was accomplished without difficulty. The patient tolerated the procedure well. Moderate Sedation: Moderate (conscious) sedation was administered by the endoscopy nurse and supervised by the endoscopist. The patient's oxygen saturation, heart rate, blood pressure and response to care were monitored. Scope In: 2:55:20 PM Scope Out: 3:04:03 PM Total Procedure Duration Time 0 hours 8 minutes 43 seconds Findings: Three columns of non-bleeding grade II varices were found in the lower third of the esophagus and in the distal esophagus,. Stigmata of recent bleeding were evident and red rosetta signs were present. Two bands were successfully placed with complete eradication, resulting in deflation of varices. There was no bleeding during the procedure. Severe portal hypertensive gastropathy was found in the stomach. The second portion of the duodenum was normal. Impression: - Recently bleeding grade II esophageal varices. Completely eradicated. Banded. - Portal hypertensive gastropathy. - Normal second portion of the duodenum. - No specimens collected. Recommendation: - [facility]. - Clear liquid diet today. - Continue present medications. Procedure Code(s): --- Professional --- 09089, Esophagogastroduodenoscopy, flexible, transoral; with band ligation of esophageal/gastric varices CPT copyright 2017 [employer]. All rights reserved. The codes documented in this report are preliminary and upon remote inpatient coder review may be revised to meet current compliance requirements. Jerry Leon DO 06/06/2021 3:12:01 PM This report has been signed electronically. Number of Addenda: 1 Note Initiated On: 06/06/2021 2:38 PM Addendum Number: 1 Addendum Date: 05/03/2022 4:18:35 PM MAC was used instead of moderate sedation for this patient. Jerry Leon DO 05/03/2022 4:18:39 PM This report has been signed electronically.
[2021-06-06] MEDS: 0.9% Normal Saline 1,000 ML 125 ML IV (16:11)
--- NOTE | 2021-06-06 16:30 | EX.PCM.CON.G ---
HPI Consult Data Date of Consult: 06/06/21 HPI Narrative HPI Narrative: MERCEDES SHEPARD, is a 65 M who presents to the emergency room with a chief complaint of passing out hitting his head. Patient has been dealing with anemia for the past year. He had an episode of upper GI bleeding about a month and a half ago and was discovered to be anemic. He underwent an upper and lower endoscopy and no etiology of his bleeding was seen. He vomited up blood last night and then passed out and hit his head. When he came into the ED he had a hematoma on his head. CT scan of the head did not show any intracranial abnormalities. He had a chest x-ray did not show any signs of infection. When I called to see him I noted that his LFTs were significantly high and consistent with hepatocellular injury. He says that he does not drink excessively. He says no more than 2 drinks a day. He also has a history of diabetes mellitus. He has no family history of liver disease. He has not received any blood transfusions. He has not had any recent travel. He did have an episodes of diarrhea but it it got better. His hemoglobin was 8.4 and admission and this morning it is 7.8. He had no signs of bleeding overnight. He also suffers from gouty arthritis and takes allopurinol. He does not take any pain medicine on a daily basis. His labs were consistent with a bicytopenia and a macrocytic anemia. His labs are also consistent with acute kidney injury. [facility] Medical History unable to obtain Home Medications allopurinol 100 mg PO BID 06/05/21 [History Last Taken 06/03/21] atenolol 50 mg PO BID 06/05/21 [History Last Taken 06/03/21] chlorthalidone 25 mg PO DAILY 06/05/21 [History Last Taken 06/03/21] hydrocodone-acetaminophen [[place]] 1 tab PO BID PRN 06/05/21 [History Last Taken Unknown] losartan 100 mg PO DAILY 06/05/21 [History Last Taken 06/03/21] metformin 500 mg PO BID 06/05/21 [History Last Taken 06/03/21] Allergy/AdvReac Type Severity Reaction Status Date / Time No Known Allergies Allergy Verified 06/05/21 15:54 Social History Smoking Status: Former smoker ROS Review of Systems ROS Unobtainable: other Constitutional Constitutional: Denies fatigue, fever(s), poor appetite, weight gain or weight loss ENT HEENT: Denies mouth lesions Cardiovascular Cardiovascular: Denies abdominal bloating, abdominal edema or abdominal pain Respiratory/Chest Respiratory/Chest: Denies change in mental status, change in phlegm color, chest congestion or chest tightness Gastrointestinal Gastrointestinal: Denies belching, bloating, change in bowel habits, change in stool character, chewing difficulty, coffee ground emesis, constipation, cramping, diarrhea, dyspepsia, dysphagia, early satiety, excessive flatus, fecal incontinence, heartburn, hematemesis, hematochezia, hemorrhoids, loose stools, melena, nausea, odynophagia, rectal bleeding, tenesmus, vomiting or weight changes Genitourinary Genitourinary: Denies abdominal discomfort, burning urination or itching Musculoskeletal Musculoskeletal: Reports as per HPI; Denies muscle weakness or myalgias Integumentary Integumentary: Denies jaundice Neurologic Neurologic: Denies lack of coordination or weakness Psychiatric Psychiatric: Denies confusion, depression, memory loss, mood swings, paranoia or suicidal ideation Endocrine Endocrinology: Denies systems reviewed and no addt'l complaints, except as documented Hematologic/Lymphatic Hematologic/Lymphatic: Denies anemia, easy bleeding, easy bruising or lymphadenopathy Allergic/Immunologic Allergic/Immunologic: Denies systems reviewed and no addt'l complaints, except as documented Physical Exam Const alert General Appearance: cooperative Orientation / Consciousness: oriented to person HEENT hearing grossly normal bilaterally Head and Scalp: normal to inspection Face and Sinus: face symmetric Nose: external nose normal Mouth: oral and palatal mucosa normal Eyes conjunctivae normal General Eye: normal appearance of both eyes Neck full ROM General: normal visual inspection Lymph Lymphatic: no lymphadenopathy noted Chest inspection of chest normal and palpation of chest normal Chest: symmetrical chest wall rise Resp normal respiratory effort Effort and Inspection: able to speak in complete sentences Cardio Cardio Narrative: Resting tachycardia GI non-distended Percussion: normal to percussion Rectal Exam: deferred Neuro Speech: speech normal Gait (Neuro): normal gait Lab / Micro Data Result Diagrams: 06/06/21 03:54 06/06/21 03:54 Labs: Laboratory Results - last 24 hr 06/05/21 18:48: POC Glucose 177 H 06/05/21 18:48: WBC 8.3, RBC 2.28 L, Hgb 8.4 L, Hct 24.9 L, MCV 109.2 H, MCH 36.8 H, MCHC 33.7, RDW Std Deviation 57.5 H, RDW Coeff of Ana 14.5, Plt Count 131 L, MPV 11.9 06/05/21 18:48: PT 20.4 H, INR 1.8, APTT 31.5 06/05/21 18:48: Sodium 137, Potassium 5.6 H, Chloride 102, Carbon Dioxide 21.0, Anion Gap 14, BUN 51 H, Creatinine 1.86 H, Estim Creat Clear Calc 40.88, Est GFR (MDRD) Af Amer 47 L, Est GFR (MDRD) Non-Af 39 L, BUN/Creatinine Ratio 27.4 H, Glucose 185 H, Calcium 9.2, Total Bilirubin 4.10 H, AST 55 H, ALT 31, Alkaline Phosphatase 65, Total Protein 6.4, Albumin 2.3 L, Globulin 4.1, Albumin/Globulin Ratio 0.6 L 06/05/21 19:21: Urine Color Dk [place], Urine Clarity Clear, Urine pH 5.0, Ur Specific [place] 1.015, Urine Protein 15 H, Urine Glucose (UA) Normal, Urine Ketones 50 H, Urine Occult Blood 10 H, Urine Nitrite Negative, Urine Bilirubin Negative, Urine Urobilinogen Normal, Ur Leukocyte Esterase 25 H, Urine RBC 0 SEEN, Urine WBC 0 SEEN, Ur Squamous Epith Cells 0-5 SEEN, Urine Bacteria 1+, Urine Mucus 0 SEEN 06/05/21 22:00: Blood Type O POSITIVE, Antibody Screen NEGATIVE 06/05/21 22:00: Iron 195 H, TIBC 207 L, Ferritin 1017 H 06/05/21 22:00: Crossmatch See Detail 06/06/21 00:36: Hgb 7.7 L, Hct 23.0 L 06/06/21 03:54: WBC 8.5, RBC 1.97 L, Hgb 7.3 L, Hct 21.2 L, MCV 107.6 H, MCH 37.1 H, MCHC 34.4, RDW Std Deviation 57.6 H, RDW Coeff of Ana 14.7 H, Plt Count 112 L, MPV 11.3, Immature Gran % (Auto) 0.500, Neut % (Auto) 73.3 H, Lymph % (Auto) 16.1 L, [place] % (Auto) 10.0, Eos % (Auto) 0.1, Baso % (Auto) 0.0, Absolute Neuts (auto) 6.2, Absolute Lymphs (auto) 1.37, Nucleated RBC % 0 06/06/21 03:54: Sodium 138, Potassium 5.3 H, Chloride 108 H, Carbon Dioxide 21.0, Anion Gap 9, BUN 56 H, Creatinine 1.74 H, Estim Creat Clear Calc 43.70, Est GFR (MDRD) Af Amer 51 L, Est GFR (MDRD) Non-Af 42 L, BUN/Creatinine Ratio 32.2 H, Glucose 155 H, Calcium 8.7, Magnesium 1.2 L, Total Bilirubin 3.20 H, AST 52 H, ALT 28, Alkaline Phosphatase 57, Total Protein 5.9 L, Albumin 2.1 L, Globulin 3.8, Albumin/Globulin Ratio 0.6 L 06/06/21 03:54: PT 20.4 H, INR 1.8 Micro: Microbiology 06/05/21 19:21 Stool Stool Occult Blood (ABRAHAM) - Final Occult Blood Positive 06/05/21 19:21 Nasal Secretion SARS-CoV-2 Antigen (Rapid) - Final Radiology Impression Brain CT 06/05/21 16:00 IMPRESSION: No acute abnormality. Individualized dose optimization techniques were used for this CT. at 1652 Reported and signed by: Claude Henderson MD Electronically Signed: Claude Henderson MD at 16:50 EDT Tel , Service support , Chest X-Ray 06/05/21 19:06 IMPRESSION: No radiographic evidence of acute cardiopulmonary disease. Electronically Signed: Anderson Jara MD at 20:19 EDT , Service support , Liver Ultrasound 06/06/21 07:35 IMPRESSION: Hepatic steatosis with suggestion of cirrhosis with no evidence of hepatic masses. 1.7 cm simple cortical cyst in the right kidney. No evidence of acute abdominal pathology. Electronically Signed: Rodney Crowley MD at 15:23 EDT Tel , Service support , Assessment & Plan Assessment/Plan (1) Anemia: PLAN: Anemia is a macrocytic anemia in the setting of acute GI blood loss. I ordered an ultrasound of the liver and it does show fatty liver disease with cirrhosis which would explain his macrocytic anemia and thrombocytopenia. (2) Syncope: PLAN: Syncope likely secondary to GI blood loss. (3) Tachycardia: PLAN: Tachycardia likely secondary to GI blood loss however I would check a D-dimer and VQ scan versus CT angiography as his tachycardia is very abnormal for him. (4) GIB (gastrointestinal bleeding): PLAN: He is going to get an upper endoscopy for evaluation of his upper GI tract. 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 Hopefully if his creatinine improves will be able to get image with a CT scan abdomen pelvis. Charges/Coding Visit Charges Inpatient E&M: 22321 Init Hosp L3
[2021-06-06 16:45] LABS: Hematocrit 24.8 % (40-54); Hemoglobin 8.6 g/dL (13.0-16.5); POSITIVE COUNT YES
[2021-06-06 17:13] LABS: LDH 206 U/L (87-241)
[2021-06-06 20:57] LABS: Hematocrit 24.7 % (40-54); Hemoglobin 8.5 g/dL (13.0-16.5)
[2021-06-07] VITALS (10 sets, daily range): BP systolic 122–154; BP diastolic 63–85; PULSE 79–125; RESP 16; TEMP 36.9–37.1; O2SAT 93–97
[2021-06-07] MEDS: 0.9% Normal Saline 1,000 ML 125 ML IV ×2 (01:07→08:05)
[2021-06-07 06:41] LABS: Hematocrit 21.9 % (40-54); Hemoglobin 7.7 g/dL (13.0-16.5)
[2021-06-07 06:44] LABS: Anion Gap 8 (5-15); BUN 49 mg/dL (7-18); BUN/Creat Ratio 33.6 RATIO (10-20); Calcium,Total 8.3 mg/dL (8.5-10.1); Chloride 107 mmol/L (98-107); Creatinine, Serum 1.46 mg/dL (0.70-1.30); EST Glomerular Filtration Rate 51 mL/min (>60); Est Glom Filt Rate - Afr Amer 62 mL/min (>60); Estimated Creatinine Clearance 52.08 ml/min; Glucose 149 mg/dL (74-106); Potassium 4.2 mmol/L (3.5-5.1); Sodium Level 138 mmol/L (136-145)
[2021-06-07 09:20] LABS: Hepatitis B Surface Antibody Non-Reactive; Hepatitis B Surface Antigen Non-Reactive (Nonreactive); Hepatitis C Antibody Non-Reactive (Nonreactive)
[2021-06-07 09:28] LABS: D-Dimer Quantitative (DVT/PE) 1.16 FEU/ug/m (0.27-0.49)
--- NOTE | 2021-06-07 10:35 | NM_ITS ---
CLINICAL: 65-year-old male with reported history of elevation of the d-dimer, syncopal episode. VENTILATION-PERFUSION LUNG SCINTIGRAPHY COMPARISON: Plain film chest radiograph report 06/05/2021 FINDINGS: The patient was administered 55.0 mCi 99m Tc DTPA aerosol. The aerosol ventilation study demonstrates mild heterogeneous ventilation identified throughout the bilateral lung to[place]entino without corresponding radiographic changes defined on plain film chest x-ray report dated 06/05/2021. Central clumping of the aerosol is noted in the bilateral hemithorax. Following the intravenous administration of 5.4 mCi of 99m Tc MAA the pulmonary perfusion study reveals uniform perfusion throughout both lung tolentino. There are no segmental or subsegmental perfusion defects identified. There are no ventilation-perfusion mismatches observed. NM/Lung Scan Vent/Perf IMPRESSION: 1. NORMAL 99m Tc MAA pulmonary perfusion imaging examination, according to PIOPED II interpretive criteria. (Sotsman et al, Radiology 246: 941, 2008 Sotsjohnathon et al, J Nucl Med 49: 1741, 2008). 2. Central clumping of the aerosol may be secondary to obstructive airway mechanics and or clinical tachypnea. Electronically Signed: Garret Bah DO at 11:58 EDT Tel , Service support ,
--- NOTE | 2021-06-07 12:46 | PN.HOSP_ITS ---
Documented by User: Colton ALONZO 06/07/21 13:06 Subjective Subjective Patient is a 65-year-old male comfortably resting in bed, alert and orient x3. Patient denies any further upper GI bleeding and denies development of any new symptoms overnight. Patient is without acute distress. Denies chest pain, shortness of breath, palpitations, hemoptysis, sputum production, fever, chills, N/V/D. Objective Data Objective Data Vital Signs: Vital Signs Temp Pulse Resp BP Pulse Ox 98.6 F 120 H 16 143/85 H 97 06/07/21 08:35 06/07/21 09:59 06/07/21 08:35 06/07/21 08:35 06/07/21 08:35 Oxygen Delivery Method Room Air Weight: 238 lb 12.17 oz Body Mass Index (BMI) 34.2 Intake & Output: Intake and Output for Last 24 Hours 06/05/21 06/06/21 06/07/21 23:59 23:59 23:59 Intake Total 600 / 600 3187.08 / 3187.08 2213.33 / 2213.33 Output Total 1100 / 1575 875 / 875 Balance 600 / 400 2087.08 / 1612.08 1338.33 / 1338.33 Lab / Micro Data Result Diagrams: 06/07/21 05:34 06/07/21 05:34 Labs: Laboratory Results - last 24 hr 06/05/21 22:00: Crossmatch See Detail 06/06/21 03:54: Lactate Dehydrogenase 206 06/06/21 16:00: Hgb 8.6 L, Hct 24.8 L 06/06/21 19:50: Hgb 8.5 L, Hct 24.7 L 06/06/21 19:50: Hep Bs Antigen Non-Reactive, Hep Bs Antibody Non-Reactive, Hepatitis C Antibody Non-Reactive 06/07/21 05:34: Sodium 138, Potassium 4.2, Chloride 107, Carbon Dioxide 23.0, Anion Gap 8, BUN 49 H, Creatinine 1.46 H, Estim Creat Clear Calc 52.08, Est GFR (MDRD) Af Amer 62, Est GFR (MDRD) Non-Af 51 L, BUN/Creatinine Ratio 33.6 H, Glucose 149 H, Calcium 8.3 L 10/06/21 05:34: Hgb 7.7 L, Hct 21.9 L 06/07/21 08:50: D-Dimer Quant (PE/DVT) 1.16 H* Micro: Microbiology 06/05/21 19:21 Stool Stool Occult Blood (ABRAHAM) - Final Occult Blood Positive 06/05/21 19:21 Nasal Secretion SARS-CoV-2 Antigen (Rapid) - Final Radiography Diagnostic Testing: Radiology Impression Liver Ultrasound 06/06/21 07:35 IMPRESSION: Hepatic steatosis with suggestion of cirrhosis with no evidence of hepatic masses. 1.7 cm simple cortical cyst in the right kidney. No evidence of acute abdominal pathology. Electronically Signed: Rodney Crowley MD at 15:23 EDT Tel , Service support , Lung Scan-VQ NM 06/07/21 10:35 IMPRESSION: 1. NORMAL 99m Tc MAA pulmonary perfusion imaging examination, according to PIOPED II interpretive criteria. (Sotsman et al, Radiology 246: 941, 2008 Sotsjohnathon et al, J Nucl Med 49: 1741, 2008). 2. Central clumping of the aerosol may be secondary to obstructive airway mechanics and or clinical tachypnea. Electronically Signed: Garret Bah DO at 11:58 EDT Tel , Service support , Physical Exam Const alert, oriented x3 and no apparent distress HEENT head/scalp atraumatic, moist oral mucous membranes and oropharynx normal Head and Scalp: normocephalic Eyes PERRL, EOMs intact bilaterally and conjunctivae normal Neck no lymphadenopathy and supple Resp normal respiratory effort, no retractions, no use of accessory muscles and clear to auscultation bilaterally Cardio regular rate, regular rhythm, no murmurs and no JVD GI normal to inspection, nondistended, normoactive bowel sounds, soft to palpation and non-tender Extremity normal to inspection, full ROM and no clubbing, cyanosis or edema Skin no rashes or lesions noted, no wounds, skin turgor normal and no jaundice Neuro CN's II-XII intact bilaterally Psych affect normal Assessment & Plan Assessment/Plan (1) GIB (gastrointestinal bleeding): PLAN: Day 2 Discharge plan: Current plan is for patient to discharge home when mecially ready, possible DC on 06/08/2021. 1) Upper GI Bleed Management per GI. Results from endoscopy on 06/06 revealed recently bleeding esophageal varices, varices were banded. Patient was placed on clear liquid diet, advancement per GI recommendations. Liver ultrasound demonstrated no acute evidence of abdominal pathology, hepatic steatosis with possible cirrhosis. Plan; remain admitted to PCU, continue clear liquid diet until advanced by GI, continue PPI. 2) Anemia in the setting of GI bleed Hemoglobin currently 7.7, which is lower than after patient received transfusion on 06/06. Patient transfused 1 unit of PRBCs on 06/06. Continue to trend CBC, iron replaced, transfuse if hemoglobin falls below 7. 3) Tachycardia Cause of patient's tachycardia is likely secondary to #1 as well as atenolol being held from admission. Patient is without any chest pain or shortness of breath. Atenolol has been reinitiated, D-dimer ordered. 4) elevated D-dimer D-dimer 1.16, ordered due to ongoing tachycardia. VQ scan ordered in place of CTA due to elevated creatinine, which did not demonstrate any evidence of PE. Patient is without any chest pain or shortness of breath. Plan; as above. 5) syncopal episode with fall Syncopal episode likely secondary to the above. Patient has a 6 cm bruise on the left side of his forehead. Patient denies any focal neurological deficits or complaints. Brain CT obtained on admission and did not demonstrate any acute abnormality. 6) [facility] Creatinine currently 1.4. Continue to trend down from admission. Continue to monitor BMP. DVT prophylaxis - not indicated Patient seen by Colton Munoz PA-C, under the supervision of Dr. Avila. Documented by User: Dr. Louie Avila MD 06/07/21 16:43 Subjective Subjective Patient does not have complaint of palpitation, tachycardia but's lunchroom monitor shows sinus tachycardia at 123 bpm. Patient was on atenolol 50 mg daily. Patient was put back on atenolol and heart rate is controlled. also said that left leg is chronically more swollen than the right but I did not see any difference but venous duplex ordered Objective Data Lab / Micro Data Result Diagrams: 06/07/21 05:34 06/07/21 05:34 Physical Exam Narrative General: Alert, Oriented x3, Cooperative HEENT: Atraumatic, PERRLA, EOMI, Normocephalic Oral: No Gingival or Mucosal Lesions/ Ulcerations Neck: Supple, No JVD, Negative Carotid Bruits Lungs: Air entry diminished in bilateral lung bases. No crepitation/rhonchi Cardiovascular: Sinus tachycardia with PACs, Normal S1, Normal S2, No murmurs Abdomen: Bowel Sounds Present, Soft, Non Tender, Non-Distended : No renal angle tenderness. No suprapubic tenderness. Extremities: Mild pedal edema got better , Capillary Refill Less than 3 Seconds Skin: No rashes, No breakdown Musculoskeletal: No Tenderness to Palpation of Joints or Extremities Neurological: Cranial nerves II-XII grossly intact, DTR 2+/4 and Symmetrical, Neuro grossly intact Psych/Mental Status: Normal Affect, Appropriate. Assessment & Plan Assessment/Plan (1) GIB (gastrointestinal bleeding): PLAN: This patient was seen in conjunction with CHERI Richardson. I have independently interviewed and examined the patient and reviewed pertinent history, examination findings, laboratory and plan of management. I have reviewed the note and agree with the documented findings with the few additional points. In brief, patient is admitted for upper GI bleed. Patient had endoscopy which showed esophageal varices and varices were banded. Liver ultrasound shows hepatic distress with possible cirrhosis. Patient also has sinus tachycardia but denies any prior history of DVT or PE. Elevated D-dimer. VQ scan reported normal. Venous duplex ordered. Patient other comorbidities as mentioned above I have discussed my assessment with CHERI Richardson and orders have been reviewed. Charges/Coding Visit Charges Inpatient E&M: 74861 Subs Hosp L2
[2021-06-07] MEDS: Atenolol 50 MG Tablet PO ×2 (13:00→21:03)
--- NOTE | 2021-06-07 16:00 | VDLE_ITS ---
Reason For Study: Shortness of breath RIGHT LEFT GSV is normal. GSV is normal. CFV is compressible, spontaneous, phasic, CFV is compressible, spontaneous, phasic, competent and demonstrates normal competent, and demonstrates normal augmentation. augmentation. FV is compressible, spontaneous, phasic, FV is compressible, spontaneous, phasic, competent and demonstrates normal competent and demonstrates normal augmentation. augmentation. POP V is compressible, spontaneous, phasic, POP V is compressible, spontaneous, phasic, competent and demonstrates normal competent and demonstrates normal augmentation. augmentation. T/P Trunk is compressible. T/P Trunk is compressible. PTV is compressible. PTV is compressible. RT PerV is compressible. LT PerV is compressible. Procedure This is a venous duplex using B-mode, color flow and spectral Doppler. Exam performed portable in patient room. A preliminary report was called and/or faxed to ornamental machine operator. VL/Venous Duplex US - Shawn Extrem Interpretation Summary No evidence for acute deep venous thrombosis bilateral lower extremities with p atent and compressible bilateral great saphenous veins. Ordering Physician: Colton Munoz Referring Physician: Beto Quijano Performed By: Deidra Burciaga RVT
--- NOTE | 2021-06-07 22:05 | EX.PCM.PN.GI ---
Subjective Subjective Patient underwent endoscopy yesterday and was discovered to have esophageal varices and portal gastropathy. He has been on a PPI drip and octreotide. He is about 1.2 L positive. He is urinating without any problems. He did have 1 bowel movement. Objective Data Objective Data Vital Signs: Vital Signs Temp Pulse Resp BP Pulse Ox 98.6 F 83 16 122/64 H 93 06/07/21 21:01 06/07/21 21:01 06/07/21 21:01 06/07/21 21:01 06/07/21 21:01 Oxygen Delivery Method Room Air Weight: 238 lb 12.17 oz Body Mass Index (BMI) 34.2 Intake & Output: Intake and Output for Last 24 Hours 06/05/21 06/06/21 06/07/21 23:59 23:59 23:59 Intake Total 600 / 600 3187.08 / 3187.08 3560.42 / 3560.42 Output Total 1100 / 1575 1375 / 1375 Balance 600 / 400 2087.08 / 1612.08 2185.42 / 2185.42 Lab / Micro Data Result Diagrams: 06/07/21 05:34 06/07/21 05:34 Labs: Laboratory Results - last 24 hr 06/06/21 19:50: Hep Bs Antigen Non-Reactive, Hep Bs Antibody Non-Reactive, Hepatitis C Antibody Non-Reactive 06/07/21 05:34: Sodium 138, Potassium 4.2, Chloride 107, Carbon Dioxide 23.0, Anion Gap 8, BUN 49 H, Creatinine 1.46 H, Estim Creat Clear Calc 52.08, Est GFR (MDRD) Af Amer 62, Est GFR (MDRD) Non-Af 51 L, BUN/Creatinine Ratio 33.6 H, Glucose 149 H, Calcium 8.3 L 06/07/21 05:34: Hgb 7.7 L, Hct 21.9 L 06/07/21 08:50: D-Dimer Quant (PE/DVT) 1.16 H* Micro: Microbiology 06/05/21 19:21 Stool Stool Occult Blood (ABRAHAM) - Final Occult Blood Positive 06/05/21 19:21 Nasal Secretion SARS-CoV-2 Antigen (Rapid) - Final Radiography Diagnostic Testing: Radiology Impression Lung Scan-VQ NM 06/07/21 10:35 IMPRESSION: 1. NORMAL 99m Tc MAA pulmonary perfusion imaging examination, according to PIOPED II interpretive criteria. (Soeduardo et al, Radiology 246: 941, 2008 Soeduardo et al, J Nucl Med 49: 1741, 2008). 2. Central clumping of the aerosol may be secondary to obstructive airway mechanics and or clinical tachypnea. Electronically Signed: Garret Bah, at 11:58 EDT Tel , Service support , Physical Exam Const alert General Appearance: cooperative Orientation / Consciousness: oriented to person HEENT hearing grossly normal bilaterally Head and Scalp: normal to inspection Face and Sinus: face symmetric Nose: external nose normal Mouth: oral and palatal mucosa normal Eyes conjunctivae normal General Eye: normal appearance of both eyes Neck full ROM General: normal visual inspection Lymph Lymphatic: no lymphadenopathy noted Chest inspection of chest normal and palpation of chest normal Chest: symmetrical chest wall rise Resp normal respiratory effort Effort and Inspection: able to speak in complete sentences Cardio regular rate GI non-distended Percussion: normal to percussion Rectal Exam: deferred Neuro Speech: speech normal Gait (Neuro): normal gait Assessment & Plan Assessment/Plan (1) Acute kidney injury: PLAN: I suspect that his acute kidney injury is hepatorenal syndrome type II in the setting of acute prerenal azotemia. His kidney function is improving slowly. (2) GIB (gastrointestinal bleeding): PLAN: Recurrent GI bleed secondary to esophageal varices status post banding. He will need to complete 24 more hours of octreotide and PPI drip. After that he can be on Protonix 40 mg twice a day and he will need to be started on nadolol 10 mg twice a day. (3) Cirrhosis: PLAN: This is a new diagnosis as per the patient. His biochemical work-up is pending. Ultrasound did not show clear cirrhosis. There was no clear ascites on the ultrasound. 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 Charges/Coding Visit Charges Inpatient E&M: 18066 Subs Hosp L3
[2021-06-08] VITALS (14 sets, daily range): BP systolic 90–120; BP diastolic 47–66; PULSE 82–97; RESP 16–24; TEMP 36.8–37.7; O2SAT 94–96
[2021-06-08 05:08] LABS: Absolute Lymphocyte Count 0.51 X10^3/uL (0.83-4.51); Absolute Neutrophil Count 2.7 X10^3/uL (2.0-7.7); Basophil# 0.01 X10^3/uL; Basophil% 0.3 % (0-1); Eosinophil# 0.02 X10^3/uL; Eosinophils% 0.6 % (0-5); Hematocrit 22.4 % (40-54); Hemoglobin 7.6 g/dL (13.0-16.5); Lymphocyte # 0.51 X10^3/ul (0.83-4.51); Mean Corp Hgb Conc 33.9 g/dL (32-36); Mean Corpuscular Hgb 34.2 pg (27.0-32.0); Mean Corpuscular Volume 100.9 fL (80-94); Mean Platelet Vol. 11.1 fl (6.2-12.0); Monocyte# 0.39 X10^3/uL; Monocyte% 10.7 % (0-10); NRBC Flagged by Analyzer 0.8 % (0-5); Neutrophil # 2.68 X10^3/uL (2.7-7.7); Neutrophil % 73.8 % (47-70); POSITIVE COUNT YES; POSITIVE DIFFERENTIAL YES; POSITIVE MORPHOLOGY YES; Platelet Count 68 K/mm3 (150-450); RBC Distribution Width CV 18.6 % (11.6-14.6); RBC Distribution Width SD 68.6 fl (35.1-43.9); Red Blood Count 2.22 M/mm3 (4.6-6.2); White Blood Count 3.6 K/mm3 (4.4-11.0)
[2021-06-08 05:17] LABS: Differential Indicated SCAN CRITERIA MET
[2021-06-08 06:23] LABS: Anion Gap 7 (5-15); BUN 41 mg/dL (7-18); BUN/Creat Ratio 27.5 RATIO (10-20); Calcium,Total 8.1 mg/dL (8.5-10.1); Chloride 106 mmol/L (98-107); Creatinine, Serum 1.49 mg/dL (0.70-1.30); EST Glomerular Filtration Rate 50 mL/min (>60); Est Glom Filt Rate - Afr Amer 61 mL/min (>60); Estimated Creatinine Clearance 51.03 ml/min; Glucose 139 mg/dL (74-106); Potassium 3.8 mmol/L (3.5-5.1); Sodium Level 137 mmol/L (136-145)
[2021-06-08 07:18] LABS: Anisocytosis 2+; Differential Comment SCANNED; Macrocytosis 2+; Platelet Estimate MOD DEC (ADEQ)
[2021-06-08] MEDS: Atenolol 50 MG Tablet PO ×2 (10:05→21:34)
[2021-06-08] MEDS: 0.9% Saline Lock 10 ML Syringe IV (10:10)
--- NOTE | 2021-06-08 11:55 | PN.HOSP_ITS ---
Documented by User: Dorinda Wylie [employer]ESSEN GOODS STOCK CLERK, DELIC[employer]ESSEN GOODS STOCK CLERK-C 06/08/21 12:05 Subjective Subjective Patient seen and examined. Denies nausea, vomiting. Denies shortness of breath, chest pain. at bedside. Denies symptoms or complaints. Objective Data Objective Data Vital Signs: Vital Signs Temp Pulse Resp BP Pulse Ox 99.3 F H 97 18 105/47 L 94 06/08/21 10:16 06/08/21 10:16 06/08/21 10:16 06/08/21 10:16 06/08/21 10:16 Oxygen Delivery Method Room Air Weight: 238 lb 12.17 oz Body Mass Index (BMI) 34.2 Intake & Output: Intake and Output for Last 24 Hours 06/06/21 06/07/21 06/08/21 23:59 23:59 23:59 Intake Total 3187.08 / 3187.08 3560.42 / 3560.42 Output Total 1100 / 1575 1375 / 1375 750 / 750 Balance 2087.08 / 1612.08 2185.42 / 2185.42 -750 / -750 Lab / Micro Data Result Diagrams: 06/08/21 04:56 06/08/21 04:56 Labs: Laboratory Results - last 24 hr 06/08/21 04:56: WBC 3.6 L, RBC 2.22 L, Hgb 7.6 L, Hct 22.4 L, MCV 100.9 H D, MCH 34.2 H, MCHC 33.9, RDW Std Deviation 68.6 H, RDW Coeff of Ana 18.6 H, Plt Count 68 L, MPV 11.1, Immature Gran % (Auto) 0.600, Neut % (Auto) 73.8 H, Lymph % (Auto) 14.0 L, [place] % (Auto) 10.7 H, Eos % (Auto) 0.6, Baso % (Auto) 0.3, Absolute Neuts (auto) 2.7, Absolute Lymphs (auto) 0.51 L, Nucleated RBC % 0.8, Differential Comment SCANNED, Diff Path Review May foll, Platelet Estimate MOD DEC, Anisocytosis 2+, Macrocytosis 2+ 06/08/21 04:56: Sodium 137, Potassium 3.8, Chloride 106, Carbon Dioxide 24.0, Anion Gap 7, BUN 41 H, Creatinine 1.49 H, Estim Creat Clear Calc 51.03, Est GFR (MDRD) Af Amer 61, Est GFR (MDRD) Non-Af 50 L, BUN/Creatinine Ratio 27.5 H, Gluc ose 139 H, Calcium 8.1 L Micro: Microbiology 06/05/21 19:21 Stool Stool Occult Blood (ABRAHAM) - Final Occult Blood Positive 06/05/21 19:21 Nasal Secretion SARS-CoV-2 Antigen (Rapid) - Final Radiography Diagnostic Testing: Radiology Impression Lung Scan-VQ NM 06/07/21 10:35 IMPRESSION: 1. NORMAL 99m Tc MAA pulmonary perfusion imaging examination, according to PIOPED II interpretive criteria. (Sotsman et al, Radiology 246: 941, 2008 Soeduardo et al, J Nucl Med 49: 1741, 2008). 2. Central clumping of the aerosol may be secondary to obstructive airway mechanics and or clinical tachypnea. Electronically Signed: Garret Bah DO at 11:58 EDT Tel , Service support , Physical Exam Const alert, oriented x3 and no apparent distress Constitutional Narrative: Appears pale. Orientation / Consciousness: awake, oriented to person, oriented to place and oriented to time HEENT normocephalic and moist oral mucous membranes Eyes PERRL, EOMs intact bilaterally and conjunctivae normal Neck no lymphadenopathy Resp normal respiratory effort and clear to auscultation bilaterally Cardio regular rate, regular rhythm and no murmurs Peripheral Pulses: pulses 2+ throughout GI normal to inspection, nondistended, normoactive bowel sounds, non-tender and non-distended Extremity normal to inspection Skin no rashes or lesions noted Lesions: no lesions Rashes: no rashes Trauma: no lacerations or abrasions Neuro CN's II-XII intact bilaterally, no focal motor deficits, no sensory deficits noted and deep tendon reflexes 2+ bilaterally Psych mental status grossly normal and affect normal Assessment & Plan Assessment/Plan (1) Acute kidney injury: (2) Anemia: (3) Cirrhosis: QUALIFIERS: Hepatic cirrhosis type: alcoholic cirrhosis Ascites presence: with ascites Qualified Code(s): K70.31 - Alcoholic cirrhosis of liver with ascites PLAN: 1. Acute blood loss anemia secondary to upper GI bleed-GI consulted. Underwent upper endoscopy 06/06 which demonstrated bleeding esophageal varices which were banded. On octreotide and PPI drip. Trend CBC. Advance diet per GI recommendations. 2. Acute kidney injury- appears improved from prior. Unclear baseline creat. Trend BMP. 3. Cirrhosis, new diagnosis-GI following. Will need further outpatient follow- up. 4. Syncopal episode- secondary to #1. 5. Elevated D-dimer-VQ scan negative. 6. Hypertension-losartan, chlorthalidone on hold. Continue atenolol. 7. Type 2 diabetes mellitus-Metformin on hold. Accu-Cheks with sliding scale insulin. DVT prophylaxis-SCDs This patient was seen by DEISY Dawson under the supervision of Dr. Avila. Documented by User: Dr. Louie Avila MD 06/08/21 16:19 Subjective Subjective Hemoglobin is 7.6 for last 2 days. I talked to the patient's regarding the complications of decompensated cirrhosis. Patient is still drinking 6 7 bottles of beer. Advised to quit. Objective Data Lab / Micro Data Result Diagrams: 06/08/21 04:56 06/08/21 04:56 Physical Exam Narrative General: Alert, Oriented x3, Cooperative HEENT: Atraumatic, PERRLA, EOMI, Normocephalic Oral: No Gingival or Mucosal Lesions/ Ulcerations Neck: Supple, No JVD, Negative Carotid Bruits Lungs: Air entry diminished in bilateral lung bases. No crepitation/rhonchi Cardiovascular: Sinus tachycardia with PACs, Normal S1, Normal S2, No murmurs Abdomen: Bowel Sounds Present, Soft, Non Tender, distended, mild to moderate ascites : No renal angle tenderness. No suprapubic tenderness. Extremities: Mild pedal edema got better , Capillary Refill Less than 3 Seconds Skin: No rashes, No breakdown Musculoskeletal: No Tenderness to Palpation of Joints or Extremities Neurological: Cranial nerves II-XII grossly intact, DTR 2+/4 and Symmetrical, Neuro grossly intact Psych/Mental Status: Normal Affect, Appropriate. Assessment & Plan Assessment/Plan (1) Cirrhosis: QUALIFIERS: Hepatic cirrhosis type: alcoholic cirrhosis Ascites presence: with ascites Qualified Code(s): K70.31 - Alcoholic cirrhosis of liver with ascites PLAN: This patient was seen in conjunction with Dorinda PEARSNO. I have independently interviewed and examined the patient and reviewed pertinent history, examination findings, laboratory and plan of management. I have reviewed the note and agree with the documented findings with the few additional points. In brief, patient is admitted for upper GI bleed. Patient has decompensated alcoholic cirrhosis with esophageal varices status post banding, ascites, hepatorenal syndrome type II and thrombocytopenia. Patient had endoscopy which showed esophageal varices and varices were banded. Liver ultrasound shows hepatic cirrhosis. Pancytopenia with leukopenia, hemoglobin 7.6, platelet count 68,000. Platelet being low for last 2 days, 1 unit of PRBC transfusion ordered. Patient also has sinus tachycardia but denies any prior history of DVT or PE. Elevated D-dimer. VQ scan reported normal. Venous duplex is negative for DVT. Discussed with the patient's regarding the decompensated alcoholic cirrhosis complications and advised quitting alcohol. Management of the complications of cirrhosis and only definitive treatment is liver transplantation. Patient other comorbidities as mentioned above I have discussed my assessment with Dorinda PEARSON and orders have been reviewed. Clinical Impression(s) from Imaging Studies Brain CT 06/05/21 16:00 IMPRESSION: No acute abnormality. Individualized dose optimization techniques were used for this CT. at 1652 Reported and signed by: Claude Henderson MD Electronically Signed: Claude Henderson MD at 16:50 EDT Tel , Service support , Chest X-Ray 06/05/21 19:06 IMPRESSION: No radiographic evidence of acute cardiopulmonary disease. Electronically Signed: Anderson Jara MD at 20:19 EDT , Service support , Liver Ultrasound 06/06/21 07:35 IMPRESSION: Hepatic steatosis with suggestion of cirrhosis with no evidence of hepatic masses. 1.7 cm simple cortical cyst in the right kidney. No evidence of acute abdominal pathology. Lung Scan-VQ NM 06/07/21 10:35 IMPRESSION: 1. NORMAL 99m Tc MAA pulmonary perfusion imaging examination, according to PIOPED II interpretive criteria. (Soeduardo et al, Radiology 246: 941, 2008 Soeduardo et al, J Nucl Med 49: 1741, 2008). 2. Central clumping of the aerosol may be secondary to obstructive airway mechanics and or clinical tachypnea. Electronically Signed: Garret Bah DO at 11:58 EDT Tel , Service support , Venous Doppler Study 06/07/21 16:00 Interpretation Summary No evidence for acute deep venous thrombosis bilateral lower extremities with patent and compressible bilateral great saphenous veins. Charges/Coding Visit Charges Inpatient E&M: 25185 Subs Hosp L2
[2021-06-08 14:56] LABS: Anti-Mitochondrial AB <20.0 Units (0.0-20.0)
[2021-06-08 14:57] LABS: ANTINUCLEAR ANTIBODIES DIRECT Negative (Negative)
[2021-06-08 17:15] LABS: Bedside Glucose 167 mg/dL (70-110)
[2021-06-08] MEDS: Insulin Lispro 100 UNIT/ML INSULN.PEN SC ×2 (17:20→20:51)
--- NOTE | 2021-06-08 18:31 | EX.PCM.PN.GI ---
Subjective Subjective Patient states that he is feeling a lot better. He still is not hungry. At this time he is getting transfusions of packed red blood cells. He denies any black stools. He denies any blood per rectum. Objective Data Objective Data Vital Signs: Vital Signs Temp Pulse Resp BP Pulse Ox 98.5 F 84 20 H 114/59 L 96 06/08/21 18:24 06/08/21 18:24 06/08/21 18:24 06/08/21 18:24 06/08/21 18:24 Oxygen Delivery Method Room Air Weight: 238 lb 12.17 oz Body Mass Index (BMI) 34.2 Intake & Output: Intake and Output for Last 24 Hours 06/06/21 06/07/21 06/08/21 23:59 23:59 23:59 Intake Total 3187.08 / 3187.08 3560.42 / 3560.42 1740 / 1740 Output Total 1100 / 1575 1375 / 1375 975 / 975 Balance 2087.08 / 1612.08 2185.42 / 2185.42 765 / 765 Lab / Micro Data Result Diagrams: 06/08/21 04:56 06/08/21 04:56 Labs: Laboratory Results - last 24 hr 06/05/21 22:00: Crossmatch See Detail 06/06/21 19:50: KRISTY Screen Negative, JIMMIE-1 Antibody Not Reportable, SS-A/Ro IgG Antibody Not Reportable, SS-B/La IgG Antibody Not Reportable, Sm (Cazares) Antibody Not Reportable, INSTALLATION SUPERINTENDENT Antibody Not Reportable, Scl-70 Scleroderma Ab Not Reportable, Double Strand DNA Ab Not Reportable, Centromere B Antibody Not Reportable, Anti-Mitochondrial Ab <20.0 06/08/21 04:56: WBC 3.6 L, RBC 2.22 L, Hgb 7.6 L, Hct 22.4 L, MCV 100.9 H D, MCH 34.2 H, MCHC 33.9, RDW Std Deviation 68.6 H, RDW Coeff of Ana 18.6 H, Plt Count 68 L, MPV 11.1, Immature Gran % (Auto) 0.600, Neut % (Auto) 73.8 H, Lymph % (Auto) 14.0 L, [place] % (Auto) 10.7 H, Eos % (Auto) 0.6, Baso % (Auto) 0.3, Absolute Neuts (auto) 2.7, Absolute Lymphs (auto) 0.51 L, Nucleated RBC % 0.8, Differential Comment SCANNED, Diff Path Review May foll, Platelet Estimate MOD DEC, Anisocytosis 2+, Macrocytosis 2+ 06/08/21 04:56: Sodium 137, Potassium 3.8, Chloride 106, Carbon Dioxide 24.0, Anion Gap 7, BUN 41 H, Creatinine 1.49 H, Estim Creat Clear Calc 51.03, Est GFR (MDRD) Af Amer 61, Est GFR (MDRD) Non-Af 50 L, BUN/Creatinine Ratio 27.5 H, Glucose 139 H, Calcium 8.1 L 06/08/21 17:05: POC Glucose 167 H Micro: Microbiology 06/05/21 19:21 Stool Stool Occult Blood (ABRAHAM) - Final Occult Blood Positive 06/05/21 19:21 Nasal Secretion SARS-CoV-2 Antigen (Rapid) - Final Radiography Diagnostic Testing: Radiology Impression Venous Doppler Study 06/07/21 16:00 Interpretation Summary No evidence for acute deep venous thrombosis bilateral lower extremities with patent and compressible bilateral great saphenous veins. Ordering Physician: Colton Munoz Referring Physician: Beto Quijano Performed By: Deidra Burciaga RVT Physical Exam Const alert General Appearance: cooperative Orientation / Consciousness: oriented to person HEENT hearing grossly normal bilaterally Head and Scalp: normal to inspection Face and Sinus: face symmetric Nose: external nose normal Mouth: oral and palatal mucosa normal Eyes conjunctivae normal General Eye: normal appearance of both eyes Neck full ROM General: normal visual inspection Lymph Lymphatic: no lymphadenopathy noted Chest inspection of chest normal and palpation of chest normal Chest: symmetrical chest wall rise Resp normal respiratory effort Effort and Inspection: able to speak in complete sentences Cardio regular rate GI non-distended Percussion: normal to percussion Rectal Exam: deferred Neuro Speech: speech normal Gait (Neuro): normal gait Assessment & Plan Assessment/Plan (1) Cirrhosis: QUALIFIERS: Hepatic cirrhosis type: alcoholic cirrhosis Ascites presence: with ascites Qualified Code(s): K70.31 - Alcoholic cirrhosis of liver with ascites PLAN: This is a new diagnosis of cirrhosis. I am assuming that this is coming from either nonalcoholic steatohepatitis or alcohol steatohepatitis in the setting of diabetes. I will start him on Actos 15 mg a day. He is not showing any other signs of decompensation such as ascites, hyperammonia or altered mental status. He should be on Xifaxan 550 mg twice a day and lactulose once a day. Awaiting his biochemical work-up. 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 (3) Anemia: PLAN: Patient is getting transfused for hemoglobin of 7.6. Hopefully we will not have to perform a colonoscopy. If his hemoglobin continues to drop then we may have to investigate his lower GI tract (4) GIB (gastrointestinal bleeding): PLAN: Recommend repeat a CBC after he gets blood transfusion. He needs to be on nadolol for variceal prophylaxis at a dose of 10 mg twice daily or 20 mg twice daily
[2021-06-08 23:36] LABS: Bedside Glucose 158 mg/dL (70-110)
[2021-06-09] VITALS (9 sets, daily range): BP systolic 106–117; BP diastolic 58–67; PULSE 78–87; RESP 16–18; TEMP 36.8–37.2; O2SAT 94–99
[2021-06-09 06:16] LABS: Bedside Glucose 136 mg/dL (70-110)
[2021-06-09 06:17] LABS: Absolute Lymphocyte Count 0.93 X10^3/uL (0.83-4.51); Absolute Neutrophil Count 2.9 X10^3/uL (2.0-7.7); Eosinophil# 0.04 X10^3/uL; Eosinophils% 0.8 % (0-5); Hematocrit 22.2 % (40-54); Hemoglobin 7.7 g/dL (13.0-16.5); Lymphocyte # 0.93 X10^3/ul (0.83-4.51); Lymphocyte % 19.7 % (19-41); Mean Corp Hgb Conc 34.7 g/dL (32-36); Mean Corpuscular Hgb 33.8 pg (27.0-32.0); Mean Corpuscular Volume 97.4 fL (80-94); Mean Platelet Vol. 11.8 fl (6.2-12.0); Monocyte# 0.83 X10^3/uL; Monocyte% 17.6 % (0-10); NRBC Flagged by Analyzer 1.3 % (0-5); Neutrophil # 2.87 X10^3/uL (2.7-7.7); Neutrophil % 61.1 % (47-70); POSITIVE COUNT YES; POSITIVE MORPHOLOGY YES; Platelet Count 62 K/mm3 (150-450); RBC Distribution Width CV 17.4 % (11.6-14.6); RBC Distribution Width SD 61.1 fl (35.1-43.9); Red Blood Count 2.28 M/mm3 (4.6-6.2); White Blood Count 4.7 K/mm3 (4.4-11.0)
[2021-06-09 06:18] LABS: Differential Indicated SCAN CRITERIA MET
[2021-06-09 06:48] LABS: Anion Gap 8 (5-15); BUN 42 mg/dL (7-18); BUN/Creat Ratio 25.3 RATIO (10-20); Calcium,Total 7.5 mg/dL (8.5-10.1); Chloride 101 mmol/L (98-107); Creatinine, Serum 1.66 mg/dL (0.70-1.30); EST Glomerular Filtration Rate 44 mL/min (>60); Est Glom Filt Rate - Afr Amer 54 mL/min (>60); Estimated Creatinine Clearance 45.81 ml/min; Glucose 132 mg/dL (74-106); Potassium 3.6 mmol/L (3.5-5.1); Sodium Level 131 mmol/L (136-145)
[2021-06-09] MEDS: Atenolol 50 MG Tablet PO (08:48)
[2021-06-09 11:36] LABS: Bedside Glucose 134 mg/dL (70-110)
--- NOTE | 2021-06-09 13:39 | PN.HOSP_ITS ---
Documented by User: Dorinda Wylie NP, HEALTH SERVICES COORDINATOR-C 06/09/21 13:54 Subjective Subjective Patient seen and examined. Denies symptoms or complaints. Does report episode of dark stool. Denies nausea, vomiting, abdominal pain. Objective Data Objective Data Vital Signs: Vital Signs Temp Pulse Resp BP Pulse Ox 98.6 F 80 16 109/65 97 06/09/21 08:41 06/09/21 08:41 06/09/21 08:41 06/09/21 08:41 06/09/21 08:41 Oxygen Delivery Method Room Air Weight: 238 lb 12.17 oz Body Mass Index (BMI) 34.2 Intake & Output: Intake and Output for Last 24 Hours 06/07/21 06/08/21 06/09/21 23:59 23:59 23:59 Intake Total 3560.42 / 3560.42 2050 / 2050 230 / 230 Output Total 1375 / 1375 1275 / 1275 200 / 200 Balance 2185.42 / 2185.42 775 / 775 30 / 30 Lab / Micro Data Result Diagrams: 06/09/21 05:15 06/09/21 05:15 Labs: Laboratory Results - last 24 hr 06/05/21 22:00: Crossmatch See Detail 06/06/21 19:50: KRISTY Screen Negative, JIMMIE-1 Antibody Not Reportable, SS-A/Ro IgG Antibody Not Reportable, SS-B/La IgG Antibody Not Reportable, Sm (Cazares) Antibody Not Reportable, MANUAL LATHE MACHINIST Antibody Not Reportable, Scl-70 Scleroderma Ab Not Reportable, Double Strand DNA Ab Not Reportable, Centromere B Antibody Not Reportable, Anti-Mitochondrial Ab <20.0 06/08/21 17:05: POC Glucose 167 H 06/08/21 20:50: POC Glucose 158 H 06/09/21 05:15: WBC 4.7, RBC 2.28 L, Hgb 7.7 L, Hct 22.2 L, MCV 97.4 H, MCH 33.8 H, MCHC 34.7, RDW Std Deviation 61.1 H, RDW Coeff of Ana 17.4 H, Plt Count 62 L, MPV 11.8, Immature Gran % (Auto) 0.800, Neut % (Auto) 61.1, Lymph % (Auto) 19.7, [place] % (Auto) 17.6 H, Eos % (Auto) 0.8, Baso % (Auto) 0.0, Absolute Neuts (auto) 2.9, Absolute Lymphs (auto) 0.93, Nucleated RBC % 1.3 06/09/21 05:15: Sodium 131 L, Potassium 3.6, Chloride 101, Carbon Dioxide 22.0, Anion Gap 8, BUN 42 H, Creatinine 1.66 H, Estim Creat Clear Calc 45.81, Est GFR (MDRD) Af Amer 54 L, Est GFR (MDRD) Non-Af 44 L, BUN/Creatinine Ratio 25.3 H, G lucose 132 H, Calcium 7.5 L 06/09/21 06:08: POC Glucose 136 H 06/09/21 11:07: POC Glucose 134 H Micro: Microbiology 06/05/21 19:21 Stool Stool Occult Blood (ABRAHAM) - Final Occult Blood Positive 06/05/21 19:21 Nasal Secretion SARS-CoV-2 Antigen (Rapid) - Final Radiography Diagnostic Testing: Radiology Impression Venous Doppler Study 06/07/21 16:00 Interpretation Summary No evidence for acute deep venous thrombosis bilateral lower extremities with patent and compressible bilateral great saphenous veins. Ordering Physician: Colton Munoz Referring Physician: Beto Quijano Performed By: Deidra Burciaga RVLola Physical Exam Const alert, oriented x3 and no apparent distress Constitutional Narrative: Pale appearing. Orientation / Consciousness: awake, oriented to person, oriented to place and oriented to time HEENT normocephalic and moist oral mucous membranes Eyes PERRL, EOMs intact bilaterally and conjunctivae normal Neck no lymphadenopathy Resp normal respiratory effort and clear to auscultation bilaterally Cardio regular rate, regular rhythm and no murmurs Peripheral Pulses: pulses 2+ throughout GI normal to inspection, nondistended, normoactive bowel sounds, non-tender and non-distended Extremity normal to inspection Skin no rashes or lesions noted Lesions: no lesions Rashes: no rashes Trauma: no lacerations or abrasions Neuro CN's II-XII intact bilaterally, no focal motor deficits, no sensory deficits noted and deep tendon reflexes 2+ bilaterally Psych mental status grossly normal and affect normal Assessment & Plan Assessment/Plan (1) Anemia: (2) GIB (gastrointestinal bleeding): PLAN: 1. Acute blood loss anemia secondary to upper GI bleed-GI consulted. Underwent upper endoscopy 06/06 which demonstrated bleeding esophageal varices which were banded. Completed octreotide. On IV PPI. Nadolol 10 mg twice daily per GI recommendations. Trend CBC. Hemoglobin 7.7 from 7.6 following additional 1 unit PRBC. Due to report of dark stool, will monitor overnight and repeat CBC in a.m. If hemoglobin continues to drop, will need further lower GI evaluation. 2. Acute kidney injury- appears stable. Unclear baseline creat. Trend BMP. 3. Cirrhosis, new diagnosis-GI following. Will need further outpatient follow- up. Initiated on Xifaxan and lactulose. 4. Syncopal episode- secondary to #1. 5. Elevated D-dimer-VQ scan negative. 6. Hypertension-losartan, chlorthalidone on hold. Atenolol discontinued due to addition of nadolol. 7. Type 2 diabetes mellitus-Metformin on hold. Accu-Cheks with sliding scale insulin. Initiated on Actos 15 mg daily per GI recommendations. DVT prophylaxis-SCDs This patient was seen by DEISY Dawson under the supervision of Dr. Vigil. Documented by User: Dr. Curt Vigil DO 06/09/21 15:50 Subjective Subjective still with black stool. Objective Data Lab / Micro Data Result Diagrams: 06/09/21 05:15 06/09/21 05:15 Physical Exam Const alert Resp normal respiratory effort, no retractions, no use of accessory muscles and clear to auscultation bilaterally Cardio regular rate, regular rhythm, S1 normal heart sound and S2 normal heart sound GI normal to inspection, nondistended, normoactive bowel sounds, soft to palpation, non-tender and non-distended Extremity normal to inspection Assessment & Plan Assessment/Plan (1) Anemia: (2) GIB (gastrointestinal bleeding): PLAN: Patient seen and examined independently. Data and vitals reviewed. I agree with the above note by the nurse practitioner. 1. GI bleed No active bleeding noted on EGD but was noted to have recent bleeding of stage II esophageal varices. Banded. Patient still reporting black stools at this time. We will continue to monitor. GI on consult. 2. Acute blood loss anemia Status post transfusion Charges/Coding Visit Charges Inpatient E&M: 41341 Subs Hosp L2
[2021-06-09 14:29] LABS: Pathologist Review Reviewed
--- NOTE | 2021-06-09 15:39 | PN.HOSP_ITS ---
Subjective Subjective Still with black stool, though not as much as earlier. Objective Data Objective Data Vital Signs: Vital Signs Temp Pulse Resp BP Pulse Ox 37.1 C 78 18 117/67 99 06/09/21 15:14 06/09/21 15:14 06/09/21 15:14 06/09/21 15:14 06/09/21 15:14 Oxygen Delivery Method Room Air Weight: 108.3 kg Body Mass Index (BMI) 34.2 Intake & Output: Intake and Output for Last 24 Hours 06/07/21 06/08/21 06/09/21 23:59 23:59 23:59 Intake Total 3560.42 / 3560.42 2050 / 0 590 / 590 Output Total 1375 / 1375 1275 / 1275 200 / 200 Balance 2185.42 / 2185.42 775 / 775 390 / 390 Lab / Micro Data Result Diagrams: 06/09/21 05:15 06/09/21 05:15 Labs: Laboratory Results - last 24 hr 06/05/21 22:00: Crossmatch See Detail 06/06/21 19:50: JIMMIE-1 Antibody Not Reportable, SS-A/Ro IgG Antibody Not Reportable, SS-B/La IgG Antibody Not Reportable, Sm (Cazares) Antibody Not Reportable, ASSOCIATE STORE MANAGER Antibody Not Reportable, Scl-70 Scleroderma Ab Not Reportable, Double Strand DNA Ab Not Reportable, Centromere B Antibody Not Reportable 06/08/21 04:56: Diff Path Review Reviewed 06/08/21 17:05: POC Glucose 167 H 06/08/21 20:50: POC Glucose 158 H 06/09/21 05:15: WBC 4.7, RBC 2.28 L, Hgb 7.7 L, Hct 22.2 L, MCV 97.4 H, MCH 33.8 H, MCHC 34.7, RDW Std Deviation 61.1 H, RDW Coeff of Ana 17.4 H, Plt Count 62 L, MPV 11.8, Immature Gran % (Auto) 0.800, Neut % (Auto) 61.1, Lymph % (Auto) 19.7, [place] % (Auto) 17.6 H, Eos % (Auto) 0.8, Baso % (Auto) 0.0, Absolute Neuts (auto) 2.9, Absolute Lymphs (auto) 0.93, Nucleated RBC % 1.3 06/09/21 05:15: Sodium 131 L, Potassium 3.6, Chloride 101, Carbon Dioxide 22.0, Anion Gap 8, BUN 42 H, Creatinine 1.66 H, Estim Creat Clear Calc 45.81, Est GFR (MDRD) Af Amer 54 L, Est GFR (MDRD) Non-Af 44 L, BUN/Creatinine Ratio 25.3 H, Glucose 132 H, Calcium 7.5 L 06/09/21 06:08: POC Glucose 136 H 06/09/21 11:07: POC Glucose 134 H Micro: Microbiology 06/05/21 19:21 Stool Stool Occult Blood (ABRAHAM) - Final Occult Blood Positive 06/05/21 19:21 Nasal Secretion SARS-CoV-2 Antigen (Rapid) - Final Physical Exam Const alert Resp normal respiratory effort, no retractions, no use of accessory muscles and clear to auscultation bilaterally Cardio regular rate, regular rhythm and S1 normal heart sound GI normal to inspection, nondistended, normoactive bowel sounds, soft to palpation and non-tender Extremity normal to inspection Assessment & Plan Assessment/Plan (1) Anemia: QUALIFIERS: Anemia type: unspecified type Qualified Code(s): D64.9 - Anemia, unspecified (2) GIB (gastrointestinal bleeding): QUALIFIERS: GI bleed type/associated pathology: melena Qualified Code(s): K92.1 - Melena PLAN: 1. Acute blood loss anemia secondary to upper GI bleed-GI consulted. Underwent upper endoscopy 06/06 which demonstrated bleeding esophageal varices which were banded. Completed octreotide. On IV PPI. Nadolol 10 mg twice daily per GI recommendations. Trend CBC. Hemoglobin 7.7 from 7.6 following additional 1 unit PRBC. Due to report of dark stool, will monitor overnight and repeat CBC in a.m. If hemoglobin continues to drop, will need fur ther lower GI evaluation. 2. Acute kidney injury- appears stable. Unclear baseline creat. Trend BMP. 3. Cirrhosis, new diagnosis-GI following. Will need further outpatient follow- up. Initiated on Xifaxan and lactulose. 4. Syncopal episode- secondary to #1. 5. Elevated D-dimer-VQ scan negative. 6. Hypertension-losartan, chlorthalidone on hold. Atenolol discontinued due to addition of nadolol. 7. Type 2 diabetes mellitus-Metformin on hold. Accu-Cheks with sliding scale insulin. Initiated on Actos 15 mg daily per GI recommendations. DVT prophylaxis-SCDs This patient was seen by DEISY Dawson under the supervision of Dr. Vigil.
[2021-06-09 16:21] LABS: Bedside Glucose 136 mg/dL (70-110)
[2021-06-09] MEDS: rifAXIMin 550 MG Tablet PO (20:47)
[2021-06-09] MEDS: Nadolol 20 MG Tablet PO (20:47)
[2021-06-09 21:50] LABS: Bedside Glucose 144 mg/dL (70-110)
[2021-06-10 03:00] VITALS: PULSE 86
[2021-06-10 03:20] VITALS: BP 111/59; PULSE 86; RESP 17; TEMP 37; O2SAT 95
[2021-06-10 06:21] LABS: Bedside Glucose 104 mg/dL (70-110)
[2021-06-10 06:36] LABS: Absolute Lymphocyte Count 0.61 X10^3/uL (0.83-4.51); Absolute Neutrophil Count 3.2 X10^3/uL (2.0-7.7); Eosinophil# 0.15 X10^3/uL; Eosinophils% 3.1 % (0-5); Hematocrit 22.5 % (40-54); Hemoglobin 7.9 g/dL (13.0-16.5); Lymphocyte # 0.61 X10^3/ul (0.83-4.51); Lymphocyte % 12.4 % (19-41); Mean Corp Hgb Conc 35.1 g/dL (32-36); Mean Corpuscular Hgb 33.9 pg (27.0-32.0); Mean Corpuscular Volume 96.6 fL (80-94); Monocyte% 16.3 % (0-10); NRBC Flagged by Analyzer 0.6 % (0-5); Neutrophil # 3.22 X10^3/uL (2.7-7.7); Neutrophil % 65.8 % (47-70); POSITIVE COUNT YES; Platelet Count 74 K/mm3 (150-450); RBC Distribution Width CV 17.3 % (11.6-14.6); Red Blood Count 2.33 M/mm3 (4.6-6.2); White Blood Count 4.9 K/mm3 (4.4-11.0)
[2021-06-10 06:57] LABS: Anion Gap 9 (5-15); BUN 33 mg/dL (7-18); BUN/Creat Ratio 24.3 RATIO (10-20); Calcium,Total 7.5 mg/dL (8.5-10.1); Chloride 100 mmol/L (98-107); Creatinine, Serum 1.36 mg/dL (0.70-1.30); EST Glomerular Filtration Rate 56 mL/min (>60); Est Glom Filt Rate - Afr Amer 68 mL/min (>60); Estimated Creatinine Clearance 55.91 ml/min; Glucose 104 mg/dL (74-106); Potassium 3.6 mmol/L (3.5-5.1); Sodium Level 131 mmol/L (136-145)
[2021-06-10 07:02] VITALS: PULSE 78
[2021-06-10 07:53] VITALS: O2SAT 95
[2021-06-10 08:44] VITALS: BP 110/58; PULSE 78; RESP 15; TEMP 36.6; O2SAT 96
[2021-06-10] MEDS: Pioglitazone Hydrochloride 15 MG Tablet PO (08:48)
[2021-06-10] MEDS: Lactulose 20 GM/30 ML UDC PO (08:49)
[2021-06-10] MEDS: Nadolol 20 MG Tablet PO (08:49)
[2021-06-10] MEDS: rifAXIMin 550 MG Tablet PO (08:49)
--- NOTE | 2021-06-10 09:55 | PCM.DC ---
Discharge Instructions Diet Discharge Diet: Low fat / Low cholesterol and Carb Control Diet Activity Discharge Activity: Return to Normal Activity Dressing / Incision Call your doctor if you observe: Shortness of breath, Dizziness, Chest pain and - (Black stool/blood in stool) Follow Up Care Test Results: Test results from this visit will be discussed in further detail at your follow-up appointment, if applicable. Discharge Plan Admission Admit Date/Time: 06/05/21 21:22 Primary Reason for Your Visit: anemia, GI bleed, cirrhosis Attending Provider: Curt Vigil Primary Care Provider: Anthony Quijano Discharge Orders/Prescriptions Prescriptions: New pioglitazone 15 mg Tablet 15 mg PO BREAKFAST 30 Days Qty: 30 RF: 0 nadolol 20 mg Tablet 20 mg PO BID 30 Days Qty: 60 RF: 0 Xifaxan 550 mg Tablet 550 mg PO BID 30 Days Qty: 60 RF: 0 lactulose 20 gram/30 mL Solution 20 g PO DAILY 30 Days Qty: 900 RF: 0 pantoprazole 40 mg tablet,delayed release (DR/EC) 40 mg PO BID Qty: 60 RF: 0 allopurinol 100 mg tablet 100 mg PO DAILY Qty: 30 RF: 0 metformin 500 mg tablet extended release 24 hr 500 mg PO DAILY Qty: 30 RF: 0 Discontinued metformin 500 mg Tablet 500 mg PO BID RF: 0 hydrocodone-acetaminophen [[place]] 5-325 mg Tablet 1 tab PO BID PRN (Reason: Pain) RF: 0 chlorthalidone 25 mg Tablet 25 mg PO DAILY RF: 0 allopurinol 100 mg Tablet 100 mg PO BID RF: 0 losartan 100 mg Tablet 100 mg PO DAILY RF: 0 atenolol 50 mg Tablet 50 mg PO BID RF: 0 Referrals / Follow Up: Anthony Quijano MD [Primary Care Provider] - In 1 Week Jerry Leon DO [STAFF PHYSICIAN] - In 1 Week Disposition Disposition (needs filled in before D/C Order can be placed): Home, Self Care
--- NOTE | 2021-06-10 10:26 | DS.PCM_ITS ---
Documented by User: Dorinda Wylie NP, [employer]AKER [employer]ATE OPERATOR-C 06/10/21 10:37 Providers Date of Admission: 06/05/21 Date of Discharge: 06/10/21 Primary Care Physician: Dr. Anthony Quijano MD Consultations 06/05/21 23:19 Consult: Gastroenterology Routine Consulting Provider: J[facility] Reason for Consult: gib EMERGENT Consult: No MD Notified: Yes Date Notified: 06/05/21 Time Notified: 21:26 Method of Notification: Text Reason For Visit: SYNCOPE AND GASTROINTESTINAL BLEEDING Diagnosis Discharge Diagnosis (1) Anemia: Status: Acute Code(s): D64.9 - Anemia, unspecified Qualifiers: Anemia type: unspecified type Qualified Code(s): D64.9 - Anemia, unspecified (2) GIB (gastrointestinal bleeding): Status: Acute Code(s): K92.2 - Gastrointestinal hemorrhage, unspecified Qualifiers: GI bleed type/associated pathology: melena Qualified Code(s): K92.1 - Melena Medications at Discharge Home Medications allopurinol 100 mg PO DAILY #30 tab 06/10/21 lactulose 20 g PO DAILY 30 Days #900 ml 06/10/21 metformin 500 mg PO DAILY #30 tab 06/10/21 nadolol 20 mg PO BID 30 Days #60 tab 06/10/21 pantoprazole 40 mg PO BID #60 tab 06/10/21 pioglitazone 15 mg PO BREAKFAST 30 Days #30 tab 06/10/21 rifaximin [Xifaxan] 550 mg PO BID 30 Days #60 tab 06/10/21 Hospital Course Operations None Procedures EGD Summary of Care Provided Minutes Spent on Discharge: 35 Hospital Course: Patient is a 65-year-old male admitted 06/05/2021 due to syncope. 1. Acute blood loss anemia secondary to upper GI bleed-GI consulted during admission. Underwent upper endoscopy 06/06 which demonstrated bleeding esophageal varices which were banded. Completed octreotide, IV PPI. Nadolol 10 mg twice daily per GI recommendations. PPI PO BID. S/P 3 units PRBC during admission. Follow up with GI in one week. 2. Acute kidney injury on chronic kidney disease stage IIIa-Per outpatient records, creatinine 01/17/2021 1.24, GFR 59, consistent with CKD stage IIIa. Acute kidney injury resolved. Home medications renally dosed. Chlorthalidone and losartan held at discharge. 3. Cirrhosis, new diagnosis-GI consulted during admission. Initiated on Xifaxan and lactulose. Follow-up with GI in 1 week. 4. Syncopal episode- secondary to #1. 5. Elevated D-dimer-VQ scan negative. 6. Hypertension-losartan, chlorthalidone discontinued due to acute kidney injury. Atenolol discontinued due to addition of nadolol. Blood pressure has been appropriate during admission, if blood pressure trends upward, will need reinitiation of BP regimen. 7. Type 2 diabetes mellitus- Initiated on Actos 15 mg daily per GI recommendations. Metformin reduced to 500 mg daily. Physical Exam Const alert, oriented x3 and no apparent distress Constitutional Narrative: Pale appearing. Orientation / Consciousness: awake, oriented to person, oriented to place and oriented to time HEENT normocephalic and moist oral mucous membranes Eyes PERRL, EOMs intact bilaterally and conjunctivae normal Neck no lymphadenopathy Resp normal respiratory effort and clear to auscultation bilaterally Cardio regular rate, regular rhythm and no murmurs Peripheral Pulses: pulses 2+ throughout GI normal to inspection, nondistended, normoactive bowel sounds, non-tender and non-distended Extremity normal to inspection Skin no rashes or lesions noted Lesions: no lesions Rashes: no rashes Trauma: no lacerations or abrasions Neuro CN's II-XII intact bilaterally, no focal motor deficits, no sensory deficits noted and deep tendon reflexes 2+ bilaterally Psych mental status grossly normal and affect normal Patient seen and examined prior to discharge. Physical assessment as noted above. Patient is stable for discharge with follow up recommendations as noted above. This patient was seen by DEISY Dawson under the supervision of Dr. Vigil. Weight / BMI Weight Weight: 238 lb 12.17 oz Body Mass Index (BMI) 34.2 ABG / Lab / Microbiology Data Result Diagrams: 06/10/21 06:04 06/10/21 06:04 Laboratory: Laboratory Results - last 24 hr 06/08/21 04:56: Diff Path Review Reviewed 06/09/21 11:07: POC Glucose 134 H 06/09/21 16:10: POC Glucose 136 H 06/09/21 21:13: POC Glucose 144 H 06/10/21 06:04: WBC 4.9, RBC 2.33 L, Hgb 7.9 L, Hct 22.5 L, MCV 96.6 H, MCH 33.9 H, MCHC 35.1, RDW Std Deviation 60.0 H, RDW Coeff of Ana 17.3 H, Plt Count 74 L , MPV 12.0, Immature Gran % (Auto) 2.400 H, Neut % (Auto) 65.8, Lymph % (Auto) 12.4 L, O'Brien % (Auto) 16.3 H, Eos % (Auto) 3.1, Baso % (Auto) 0.0, Absolute Neuts (auto) 3.2, Absolute Lymphs (auto) 0.61 L, Nucleated RBC % 0.6 06/10/21 06:04: Sodium 131 L, Potassium 3.6, Chloride 100, Carbon Dioxide 22.0, Anion Gap 9, BUN 33 H, Creatinine 1.36 H, Estim Creat Clear Calc 55.91, Est GFR (MDRD) Af Amer 68, Est GFR (MDRD) Non-Af 56 L, BUN/Creatinine Ratio 24.3 H, Glucose 104, Calcium 7.5 L 06/10/21 06:16: POC Glucose 104 Microbiology: Microbiology 06/05/21 19:21 Stool Stool Occult Blood (ABRAHAM) - Final Occult Blood Positive 06/05/21 19:21 Nasal Secretion SARS-CoV-2 Antigen (Rapid) - Final D/C Instructions Discharge Diet: Low fat / Low cholesterol and Carb Control Diet Call your doctor if you observe: Shortness of breath, Dizziness, Chest pain and - (Black stool/blood in stool) Meaningful Use Info Meaningful Use Diagnoses (Choose all that apply): None applicable Discharge Plan Admission Admit Date/Time: 06/05/21 21:22 Primary Reason for Your Visit: anemia, GI bleed, cirrhosis Attending Provider: Curt Vigil Primary Care Provider: Anthony Quijano Discharge Orders/Prescriptions Prescriptions: New pioglitazone 15 mg Tablet 15 mg PO BREAKFAST 30 Days Qty: 30 RF: 0 nadolol 20 mg Tablet 20 mg PO BID 30 Days Qty: 60 RF: 0 Xifaxan 550 mg Tablet 550 mg PO BID 30 Days Qty: 60 RF: 0 lactulose 20 gram/30 mL Solution 20 g PO DAILY 30 Days Qty: 900 RF: 0 pantoprazole 40 mg tablet,delayed release (DR/EC) 40 mg PO BID Qty: 60 RF: 0 allopurinol 100 mg tablet 100 mg PO DAILY Qty: 30 RF: 0 metformin 500 mg tablet extended release 24 hr 500 mg PO DAILY Qty: 30 RF: 0 Discontinued metformin 500 mg Tablet 500 mg PO BID RF: 0 hydrocodone-acetaminophen [[place]] 5-325 mg Tablet 1 tab PO BID PRN (Reason: Pain) RF: 0 chlorthalidone 25 mg Tablet 25 mg PO DAILY RF: 0 allopurinol 100 mg Tablet 100 mg PO BID RF: 0 losartan 100 mg Tablet 100 mg PO DAILY RF: 0 atenolol 50 mg Tablet 50 mg PO BID RF: 0 Referrals / Follow Up: Anthony Quijano MD [Primary Care Provider] - In 1 Week FriendJerry DO [STAFF PHYSICIAN] - In 1 Week Disposition Disposition (needs filled in before D/C Order can be placed): Home, Self Care Documented by User: Dr. Curt Vigil DO 06/10/21 15:16 Providers Date of Admission: 06/05/21 Reason For Visit: SYNCOPE AND GASTROINTESTINAL BLEEDING Medications at Discharge Home Medications allopurinol 100 mg PO DAILY #30 tab 06/10/21 lactulose 20 g PO DAILY 30 Days #900 ml 06/10/21 metformin 500 mg PO DAILY #30 tab 06/10/21 nadolol 20 mg PO BID 30 Days #60 tab 06/10/21 pantoprazole 40 mg PO BID #60 tab 06/10/21 pioglitazone 15 mg PO BREAKFAST 30 Days #30 tab 06/10/21 rifaximin [Xifaxan] 550 mg PO BID 30 Days #60 tab 06/10/21 Hospital Course Procedures EGD Summary of Care Provided Minutes Spent on Discharge: 35 Hospital Course: Patient seen and examined independently. Data and vitals reviewed. I agree with the above note by the nurse practitioner. This is a 75-year-old who presents with melena. Patient underwent EGD that showed stage II esophageal varices banded. Patient continued to have some black stool but his hemoglobin did remain stable after transfusion of 2 units packed red blood cells. Plan is for the patient to be discharged and to follow-up with gastroenterology as outpatient. Physical Exam Const alert Resp normal respiratory effort, no retractions and no use of accessory muscles Cardio regular rate, regular rhythm, S1 normal heart sound and S2 normal heart sound Neuro Sensorium / Orientation: awake and alert ABG / Lab / Microbiology Data Result Diagrams: 06/10/21 06:04 06/10/21 06:04 Discharge Plan Admission Admit Date/Time: 06/05/21 21:22 Primary Reason for Your Visit: anemia, GI bleed, cirrhosis Attending Provider: Curt Vigil Primary Care Provider: Anthony Quijano Discharge Orders/Prescriptions Prescriptions: New pioglitazone 15 mg Tablet 15 mg PO BREAKFAST 30 Days Qty: 30 RF: 0 nadolol 20 mg Tablet 20 mg PO BID 30 Days Qty: 60 RF: 0 Xifaxan 550 mg Tablet 550 mg PO BID 30 Days Qty: 60 RF: 0 lactulose 20 gram/30 mL Solution 20 g PO DAILY 30 Days Qty: 900 RF: 0 pantoprazole 40 mg tablet,delayed release (DR/EC) 40 mg PO BID Qty: 60 RF: 0 allopurinol 100 mg tablet 100 mg PO DAILY Qty: 30 RF: 0 metformin 500 mg tablet extended release 24 hr 500 mg PO DAILY Qty: 30 RF: 0 Discontinued metformin 500 mg Tablet 500 mg PO BID RF: 0 hydrocodone-acetaminophen [[place]] 5-325 mg Tablet 1 tab PO BID PRN (Reason: Pain) RF: 0 chlorthalidone 25 mg Tablet 25 mg PO DAILY RF: 0 allopurinol 100 mg Tablet 100 mg PO BID RF: 0 losartan 100 mg Tablet 100 mg PO DAILY RF: 0 atenolol 50 mg Tablet 50 mg PO BID RF: 0 Referrals / Follow Up: Anthony Quijano MD [Primary Care Provider] - In 1 Week Jerry Leon DO [STAFF PHYSICIAN] - In 1 Week Disposition Disposition (needs filled in before D/C Order can be placed): Home, Self Care Charges/Coding Visit Charges Inpatient E&M: 71291 Disch Hosp
[2021-06-13 08:10] LABS: Haptoglobin 33 mg/dL (32-363); Hepatitis A AB, Total Negative (Negative); Immunoglobulin G 1455 mg/dL (603-1613)
[2021-06-13 14:50] LABS: Copper, Serum or Plasma 70 ug/dL (69-132); Hepatitis A IgM Antibody Negative (Negative)
== END 2021-06-10 11:54 | disposition home or self-care (01) | DRG 432 ==
LOC: ED 21:18 → PCU 22:08
PROVIDERS: Internal Medicine; Internal Medicine Gastroenterology; Nurse Practitioner Family; Physician Assistant; Admitting Provider Family Medicine; Emergency Provider Emergency Medicine; PCP Family Medicine
PROC: 0DJ08ZZ Inspection of Upper Intestinal Tract, Via Natural or Artificial Opening Endoscopic (ICD-10-PCS; CPT 43235; principal; 2021-06-06 14:10)
DX: K70.31 Alcoholic cirrhosis of liver with ascites (principal); I85.11 Secondary esophageal varices with bleeding; D62 Acute posthemorrhagic anemia; K76.6 Portal hypertension; N17.9 Acute kidney failure, unspecified; D61.818 Other pancytopenia; K76.0 Fatty (change of) liver, not elsewhere classified; S00.83XA Contusion of other part of head, initial encounter; W19.XXXA Unspecified fall, initial encounter; S00.81XA Abrasion of other part of head, initial encounter; Y93.9 Activity, unspecified; Y92.9 Unspecified place or not applicable; R55 Syncope and collapse; R00.0 Tachycardia, unspecified; D69.6 Thrombocytopenia, unspecified; E11.22 Type 2 diabetes mellitus with diabetic chronic kidney disease; I12.9 Hypertensive chronic kidney disease with stage 1 through stage 4 chronic kidney disease, or unspecified chronic kidney disease; M10.9 Gout, unspecified; N18.31 Chronic kidney disease, stage 3a; Z79.84 Long term (current) use of oral hypoglycemic drugs; Z79.899 Other long term (current) drug therapy; Z87.891 Personal history of nicotine dependence
CPT/HCPCS: 36415; 70450; 71045; 76705; 78582; 80048; 80053; 81001; 82274; 82390; 82525; 82728; 82784; 82962; 83010; 83516; 83540; 83550; 83615; 83735; 85014; 85018; 85025; 85027; 85379; 85610; 85730; 86038; 86225; 86235; 86706; 86708; 86709; 86803; 86850; 86900; 86901; 86920; 86922; 87340; 87426; 93005; 93970; 99285; A9540; A9567; J1756; J7030; J7040; J7120; P9016; A4216; J2405

== ENCOUNTER → 2021-06-13 16:30 | Outpatient (CLI) | payer MEDICARE, SELFPAY ==
[2021-06-13 17:07] LABS: Absolute Lymphocyte Count 0.81 X10^3/uL (0.83-4.51); Absolute Neutrophil Count 4.6 X10^3/uL (2.0-7.7); Basophil# 0.02 X10^3/uL; Basophil% 0.3 % (0-1); Eosinophil# 0.11 X10^3/uL; Eosinophils% 1.7 % (0-5); Hematocrit 30.1 % (40-54); Hemoglobin 10.3 g/dL (13.0-16.5); Lymphocyte # 0.81 X10^3/ul (0.83-4.51); Lymphocyte % 12.6 % (19-41); Mean Corp Hgb Conc 34.2 g/dL (32-36); Mean Corpuscular Hgb 33.6 pg (27.0-32.0); Mean Platelet Vol. 11.5 fl (6.2-12.0); Monocyte# 0.83 X10^3/uL; Monocyte% 12.9 % (0-10); NRBC Flagged by Analyzer 0 % (0-5); Neutrophil % 71.7 % (47-70); Platelet Count 168 K/mm3 (150-450); RBC Distribution Width CV 17.5 % (11.6-14.6); RBC Distribution Width SD 63.7 fl (35.1-43.9); Red Blood Count 3.07 M/mm3 (4.6-6.2); White Blood Count 6.4 K/mm3 (4.4-11.0)
[2021-06-13 17:22] LABS: International Normalized Ratio 1.4; Prothrombin Time (Protime)PT. 16.8 SECONDS (11.7-14.9)
[2021-06-13 17:51] LABS: ALB/GLOB Ratio 0.4 RATIO (0.9-2.4); AST(SGOT) 74 U/L (15-37); Alanine Aminotransfer ALT/SGPT 35 U/L (16-61); Alkaline Phosphatase 106 U/L (45-117); Anion Gap 10 (5-15); BUN 18 mg/dL (7-18); BUN/Creat Ratio 15.8 RATIO (10-20); Calcium,Total 8.1 mg/dL (8.5-10.1); Chloride 99 mmol/L (98-107); Creatinine, Serum 1.14 mg/dL (0.70-1.30); EST Glomerular Filtration Rate 68 mL/min (>60); Est Glom Filt Rate - Afr Amer 83 mL/min (>60); Globulin 4.6 g/dL (2.2-4.2); Glucose 122 mg/dL (74-106); Potassium 3.8 mmol/L (3.5-5.1); Protein, Total 6.6 g/dL (6.4-8.2); Sodium Level 132 mmol/L (136-145)
== END ==
PROVIDERS: PCP Family Medicine; Referring Provider Internal Medicine Gastroenterology; Visit Provider Internal Medicine Gastroenterology
DX: K70.31 Alcoholic cirrhosis of liver with ascites (principal); K92.1 Melena
CPT/HCPCS: 36415; 80053; 85025; 85610

== ENCOUNTER → 2021-06-19 12:37 | Outpatient (CLI) | payer MEDICARE, SELFPAY ==
[2021-06-19 13:14] LABS: Absolute Lymphocyte Count 1.09 X10^3/uL (0.83-4.51); Absolute Neutrophil Count 3.1 X10^3/uL (2.0-7.7); Basophil# 0.04 X10^3/uL; Basophil% 0.8 % (0-1); Eosinophil# 0.12 X10^3/uL; Eosinophils% 2.4 % (0-5); Hematocrit 29.6 % (40-54); Lymphocyte # 1.09 X10^3/ul (0.83-4.51); Lymphocyte % 21.6 % (19-41); Mean Corp Hgb Conc 33.8 g/dL (32-36); Mean Corpuscular Hgb 34.5 pg (27.0-32.0); Mean Corpuscular Volume 102.1 fL (80-94); Mean Platelet Vol. 11.1 fl (6.2-12.0); Monocyte% 13.9 % (0-10); NRBC Flagged by Analyzer 0 % (0-5); Neutrophil # 3.08 X10^3/uL (2.7-7.7); Neutrophil % 61.1 % (47-70); POSITIVE MORPHOLOGY YES; Platelet Count 243 K/mm3 (150-450); RBC Distribution Width CV 18.4 % (11.6-14.6); RBC Distribution Width SD 68.1 fl (35.1-43.9)
[2021-06-19 13:24] LABS: Differential Indicated SCAN CRITERIA MET
[2021-06-19 14:13] LABS: Anisocytosis 2+; Platelet Estimate ADEQUATE (ADEQ); Red Cell Morphology N CHROM NORMAL (NORM C&C)
[2021-06-20 13:45] LABS: ALB/GLOB Ratio 0.5 RATIO (0.9-2.4); AST(SGOT) 75 U/L (15-37); Alanine Aminotransfer ALT/SGPT 41 U/L (16-61); Albumin, Serum 2.2 g/dL (3.2-5.0); Alkaline Phosphatase 122 U/L (45-117); Anion Gap 7 (5-15); BUN 16 mg/dL (7-18); BUN/Creat Ratio 11.6 RATIO (10-20); Calcium,Total 8.2 mg/dL (8.5-10.1); Chloride 101 mmol/L (98-107); Creatinine, Serum 1.38 mg/dL (0.70-1.30); EST Glomerular Filtration Rate 55 mL/min (>60); Est Glom Filt Rate - Afr Amer 66 mL/min (>60); Globulin 4.5 g/dL (2.2-4.2); Glucose 134 mg/dL (74-106); Potassium 3.7 mmol/L (3.5-5.1); Protein, Total 6.7 g/dL (6.4-8.2); Sodium Level 134 mmol/L (136-145)
== END ==
PROVIDERS: PCP Family Medicine; Referring Provider Internal Medicine Gastroenterology; Visit Provider Internal Medicine Gastroenterology
DX: K70.31 Alcoholic cirrhosis of liver with ascites (principal)
CPT/HCPCS: 36415; 80053; 85025

== ENCOUNTER → 2021-06-20 11:51 | Outpatient (CLI) | payer MEDICARE, SELFPAY | PROVIDERS: PCP Family Medicine; Referring Provider Internal Medicine Gastroenterology; Visit Provider Internal Medicine Gastroenterology | DX: Z00.00 Encounter for general adult medical examination without abnormal findings (principal) ==

== ENCOUNTER → 2021-06-24 08:54 | Outpatient (CLI) | payer MEDICARE, SELFPAY ==
--- NOTE | 2021-06-24 08:55 | US_ITS ---
STUDY: ABDOMINAL ULTRASOUND - RIGHT UPPER QUADRANT REASON FOR VISIT: Male, 65 years old RUQ and ascites check TECHNIQUE: Ultrasound evaluation of the right upper quadrant was performed with real-time and static aguilar-scale imaging. TECHNICAL QUALITY: Adequate. COMPARISON: None. FINDINGS: Liver: The liver measures 15.8 cm. There is a heterogeneous echogenicity of the liver. The liver contour is nodular. There is recanalization of the umbilical vein. The bile ducts are within normal limits. There is hepatic color flow. The direction of portal flow is hepatopetal. There is no demonstrated mass lesion. Gallbladder: Normal distended gallbladder. The gallbladder wall measures 9.0 mm. There is a negative sonographic Simms''s sign. There is no pericholecystic fluid. There are no gallstones. Common Bile Duct (C.B.D.): The common bile duct measures 5.1 mm. Pancreas: There is nonvisualization of the pancreas. Right Kidney: Normal size of the right kidney. The right kidney measures 11.0 cm in length. Normal renal cortex. There is a simple appearing 1.6 cm exophytic cyst. There is no right hydronephrosis. There is free fluid within all 4 quadrants of the abdomen. US/Abdomen Limited IMPRESSION: Ascites. Cirrhotic appearing liver. Nonvisualization of the pancreas secondary to body habitus and overlying bowel gas. Right renal cyst. Electronically Signed: Leonor Colvin MD at 10:01 EDT Tel , Service support ,
== END ==
PROVIDERS: PCP Family Medicine; Referring Provider Internal Medicine Gastroenterology; Visit Provider Internal Medicine Gastroenterology
DX: K70.31 Alcoholic cirrhosis of liver with ascites (principal)
CPT/HCPCS: 76705

== ENCOUNTER 2021-07-19 06:00 | Day surgery (SDC) | payer MEDICARE, SELFPAY ==
[2021-07-19 06:40] VITALS: BP 101/64; PULSE 96; RESP 16; TEMP 36.5; O2SAT 100; BMI 31.6
[2021-07-19] MEDS: Lactated Ringers 1,000 ML 15 ML IV (06:53)
--- NOTE | 2021-07-19 07:35 | HP.PCM_ITS ---
History and Physical Date of Admission: 07/19/21 HPI Chief Complaint: fall, hit head, +LOC, vomitting, dark stool Details: MERCEDES SHEPARD, is a 65 M who presents to the office today for diagnosis of cirrhosis. He presented to the emergency room with a chief complaint of passing out hitting his head. Patient has been dealing with anemia for the past year. He had an episode of upper GI bleeding about a month and a half ago and was discovered to be anemic. He underwent an upper and lower endoscopy and no etiology of his bleeding was se en. He vomited up blood and then passed out and hit his head. When he came into the ED he had a hematoma on his head. CT scan of the head did not show any intracranial abnormalities. He had a chest x-ray did not show any signs of infection. When I called to see him I noted that his LFTs were significantly high and consistent with hepatocellular injury. He says that he does not drink excessively. He says no more than 2 drinks a day. He also has a history of diabetes mellitus. He has no family history of liver disease. He has not received any blood transfusions. He has not had any recent travel. He did have an episodes of diarrhea but it it got better. His hemoglobin was 8.4 and admission and then dropped down to 7.8. His labs were consistent with a bicytopenia and a macrocytic anemia. His labs are also consistent with acute kidney injury. He underwent EGD was discovered to have grade 2-3 esophageal varices. He underwent banding. He was also discovered to have ascites on imaging. He underwent aggressive diuresis and has been on medication regimen recommended to him since leaving the hospital and has been doing very well. He lost 20 pounds in water weight. Denies symptoms including dark stools or blood. Lsat visit 06/13/21 for continued evaluation of: His diagnosis of cirrhosis is believed to be RENDON. Biochemical workup will aim to differentiate between chronic hepatitis C, chronic hepatitis B, autoimmune hepatitis, PBC, PSC, alpha-1 antitrypsin, hemochromatosis, Óscar?s disease. Nadolol 20mg BID. Lactulose stopped due to increase loose stool frequency. Repeat EGD early to mid July for variceal surveillance. Meld calculation 18. GI Bleed ? possibly secondary to hemorrhoids or diverticular bleeding or cirrhosis. 06/19/21 blood work noted to be improving or stable. Abdominal US performed 06/24/21 showed cirrhotic appearing liver, right renal cyst and nonvisualization of pancreas r/t body habitus and overlying bowel gas. ROS Const Constitutional: No anorexia, fatigue, fever(s), weight change or sleep problems Eyes Eyes: No change in vision ENT ENT: No abnormal hearing, difficulty swallowing, mouth lesions, tongue swelling or throat swelling Resp Respiratory: No cough or shortness of breath Cardio Cardiology: No chest pain at rest, chest pain with exertion, shortness of breath or dyspnea on exertion Gastro GI: No difficulty swallowing Genitourinary Male: No difficulty urinating or burning urination Musc Musculoskeletal: No joint pain, joint swelling, muscle weakness or decreased muscle mass Skin Skin: No hair loss in leg, yellowing of the eye, itchy eyes, rash, skin ulcer or skin swelling Neuro Neurology: No abnormal hearing, abnormal movements, confusion, unsteady gait/balance or memory loss Psych Psychiatric: No anxiety, No confusion and No memory loss Endo Endocrine: No fatigue or weight change Aller/Imm Allergy/Immunologic: No itchy eyes, throat swelling or tongue swelling Justin/Lymp Hematologic/Lymphatic: No easy bleeding, easy bruising or enlarged lymph nodes Exam Const General: cooperative and comfortable Nutritional Appearance: average body habitus and well nourished [facility] Head: normal to inspection Ears: hearing grossly normal bilaterally Nose: external nose normal Face and sinus: normal facial exam Mouth: oral mucosae normal Throat: posterior oropharynx normal Eyes General: appearance normal, both eyes and all related structures Neck Neck: normal visual inspection Chest Chest palpation & inspection: normal inspection of the chest and normal palpation of entire chest wall Resp Effort & Inspection: normal respiratory effort Auscultation: Bilateral: Clear to Auscultation Cardio Palpation: normal PMI Rate: regular rate Rhythm: regular rhythm GI Inspection: normal to inspection Auscultation: normal bowel sounds Percussion: normal to percussion Palpation: no hepatosplenomegaly Skin General: no rashes or lesions noted Neuro General: patient alert Extrem General: normal to inspection Psych Affect: normal affect Quality Reporting Tobacco Screening ([facility] 138) Smoking Status: Former smoker Assessment and Plan Assessment and Plan (1) Varices, esophageal: Status: Acute Orders: Orders: EGD Today Plan - Dr. Edwards Friend, DO: He will undergo EGD for variceal surveillance. He will maintain nadolol therapy at 20 mg twice daily. (2) Ascites: Status: Acute Plan - Dr. Edwards Friend, DO: He is on spironolactone and Lasix for his ascites. At this time examination he is not showing any signs of gross ascites. He does not have a fluid wave. He has no fluid in his legs and he does not complain of any fluid in his scrotum. 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 Edwards Friend, DO: He is not showing any signs of decompensation at this time. His meld was calculated and it was 16. When he went to the hospital his meld was 30. He is getting a lot better. We had a long over half of our conversation regarding his prognosis. I told him it all depends on his meld score and whether we can keep it on compensated. (4) Cytopenia: Status: Acute I have re-examined the patient. There are no clinical changes since date of exam.
[2021-07-19 08:05] VITALS: BP 101/64; BP 109/68; PULSE 99; RESP 20; TEMP 36.4; O2SAT 100
[2021-07-19 08:10] VITALS: BP 101/64; BP 115/73; PULSE 95; RESP 18; O2SAT 100
--- NOTE | 2021-07-19 08:10 | OP.EGD_ITS ---
Patient Name: Julia Salcido Procedure Date: 07/19/2021 7:37 AM Date of : 1955 Age: 65 Procedure: Upper GI endoscopy Indications: 2nd degree variceal eradication (following bleed) Providers: Jerry Leon DO Patient Profile: This is a 65 year old male. Refer to note in patient chart for documentation of history and physical. Patient has symptoms. He is status post EGD for treatment of bleeding within the past three months. Complications: No immediate complications. Procedure: Pre-Anesthesia Assessment: - Prior to the procedure, a History and Physical was performed, and patient medications and allergies were reviewed. The risks and benefits of the procedure and the sedation options and risks were discussed with the patient. All questions were answered and informed consent was obtained. Patient identification and proposed procedure were verified by the physician in the pre-procedure area. Mental Status Examination: alert and oriented. Airway Examination: normal oropharyngeal airway and neck mobility. Respiratory Examination: clear to auscultation. CV Examination: normal. Prophylactic Antibiotics: The patient does not require prophylactic antibiotics. Prior Anticoagulants: The patient has taken no previous anticoagulant or antiplatelet agents. ASA Grade Assessment: II - A patient with mild systemic disease. After reviewing the risks and benefits, the patient was deemed in satisfactory condition to undergo the procedure. The anesthesia plan was to use moderate sedation / analgesia (conscious sedation). Immediately prior to administration of medications, the patient was re-assessed for adequacy to receive sedatives. The heart rate, respiratory rate, oxygen saturations, blood pressure, adequacy of pulmonary ventilation, and response to care were monitored throughout the procedure. The physical status of the patient was re-assessed after the procedure. After obtaining informed consent, the endoscope was passed under direct vision. Throughout the procedure, the patient's blood pressure, pulse, and oxygen saturations were monitored continuously. The gastroscope was introduced through the mouth, and advanced to the second part of duodenum. The upper GI endoscopy was accomplished without difficulty. The patient tolerated the procedure well. Moderate Sedation: Moderate (conscious) sedation was administered by the endoscopy nurse and supervised by the endoscopist. The patient's oxygen saturation, heart rate, blood pressure and response to care were monitored. Total physician intraservice time was 15 minutes. Scope In: 7:49:29 AM Scope Out: 7:57:27 AM Total Procedure Duration Time 0 hours 7 minutes 58 seconds Findings: Three columns of grade II varices were found in the lower third of the esophagus, 36 cm from the incisors. They were 5 mm in largest diameter. No stigmata of recent bleeding were evident and no red rosetta signs were present. Evidence of partial eradication was visible. Two bands were successfully placed with incomplete eradication of varices. There was no bleeding during the procedure. Moderate portal hypertensive gastropathy was found in the entire examined stomach. The second portion of the duodenum was normal. A small hiatal hernia was present. Impression: - Non-bleeding grade II esophageal varices. Incompletely eradicated. Banded. - Portal hypertensive gastropathy. - Normal second portion of the duodenum. - Small hiatal hernia. - No specimens collected. Recommendation: - Discharge patient to home. - Full liquid diet today. - Continue present medications. - Return to my office in 2 weeks. Procedure Code(s): --- Professional --- 84206, Esophagogastroduodenoscopy, flexible, transoral; with band ligation of esophageal/gastric varices G0500, Moderate sedation services provided by the same physician or other qualified health resident caregiver performing a gastrointestinal endoscopic service that sedation supports, requiring the presence of an independent trained observer to assist in the monitoring of the patient's level of consciousness and physiological status; initial 15 minutes of intra-service time; patient age 5 years or older (additional time may be reported with 36596, as appropriate) CPT copyright 2017 [employer]. All rights reserved. The codes documented in this report are preliminary and upon mold filling operator review may be revised to meet current compliance requirements. Jerry Leon DO 07/19/2021 8:10:21 AM This report has been signed electronically. Number of Addenda: 1 Note Initiated On: 07/19/2021 7:37 AM Addendum Number: 1 Addendum Date: 05/04/2022 6:25:14 AM MAC was used instead of moderate sedation for this patient. Jerry Leon DO 05/04/2022 6:25:21 AM This report has been signed electronically.
--- NOTE | 2021-07-19 08:11 | OP.CCLET_ITS ---
05/04/2022 Anthony Quijano Re : Upper GI endoscopy procedure for Julia Salcido Dear Samm This procedure was performed on Monday, July 19, 2021. My impressions and recommendations are as follows: Impressions : - Non-bleeding grade II esophageal varices. Incompletely eradicated. Banded. - Portal hypertensive gastropathy. - Normal second portion of the duodenum. - Small hiatal hernia. - No specimens collected. Recommendations : - Discharge patient to home. - Full liquid diet today. - Continue present medications. - Return to my office in 2 weeks. My findings are described in the full procedure note, which is enclosed. If I can be of further assistance, please feel free to contact me at . Sincerely, Jerry Leon, 07/19/2021 8:10:21 AM This report has been signed electronically.
[2021-07-19 08:15] VITALS: BP 101/64; BP 119/78; PULSE 94; RESP 18; O2SAT 99
[2021-07-19 08:20] VITALS: BP 101/64; BP 121/73; PULSE 97; RESP 18; TEMP 37; O2SAT 99
[2021-07-19 08:31] VITALS: BP 101/64
== END 2021-07-19 08:48 ==
LOC: EN 06:02 → AC 06:02
PROVIDERS: PCP Family Medicine; Referring Provider Family Medicine; Visit Provider Internal Medicine Gastroenterology
PROC: 0DJ08ZZ Inspection of Upper Intestinal Tract, Via Natural or Artificial Opening Endoscopic (ICD-10-PCS; CPT 43235; principal; 2021-07-19 07:10)
DX: I85.10 Secondary esophageal varices without bleeding (principal); K75.81 Nonalcoholic steatohepatitis (NASH); K76.6 Portal hypertension; K74.60 Unspecified cirrhosis of liver; R18.8 Other ascites; K44.9 Diaphragmatic hernia without obstruction or gangrene; D75.9 Disease of blood and blood-forming organs, unspecified; I10 Essential (primary) hypertension; E11.9 Type 2 diabetes mellitus without complications; D64.9 Anemia, unspecified; K21.9 Gastro-esophageal reflux disease without esophagitis; M10.9 Gout, unspecified; Z87.19 Personal history of other diseases of the digestive system; Z79.84 Long term (current) use of oral hypoglycemic drugs; Z79.899 Other long term (current) drug therapy; Z87.891 Personal history of nicotine dependence
CPT/HCPCS: 43244; 87426; J7120; J2405

== ENCOUNTER 2021-09-14 11:25 | Outpatient (CLI) | payer MEDICARE, SELFPAY ==
--- NOTE | 2021-09-14 11:29 | US_ITS ---
STUDY: ABDOMINAL ULTRASOUND - ELASTOGRAPHY REASON FOR VISIT: Male, 66 years old. RENDON TECHNIQUE: Liver stiffness measurements were obtained on a Embanet RS 85 ultrasound machine using a CA 1-7 probe following the SRU guidelines. 3 measurements were obtained using a 2-D-SWE method. The IQR/M was 12% suggesting a quality data set. TECHNICAL QUALITY: Adequate. COMPARISON: Comparison is made with prior ultrasound of the right upper quadrant dated 06/24/2021. FINDINGS: Liver: Heterogeneous appearance of the liver. Median liver stiffness measured 35 kPa. US/Elastography Parenchyma/Organ IMPRESSION: Liver stiffness measures 35 kPa compatible with F4 Metavir score. Electronically Signed: Nito Rodriguez MD at 11:57 EST , Service support ,
[2021-09-14 12:12] LABS: International Normalized Ratio 1.4; Prothrombin Time (Protime)PT. 16.1 SECONDS (11.7-14.9)
[2021-09-14 12:13] LABS: Partial Thromboplast Time 34.3 Seconds (24.1-36.2); Platelet Count 107 K/mm3 (150-450)
[2021-09-14 12:18] LABS: Erythrocyte Sedimentation Rate 25 mm/hr (0-20)
[2021-09-14 12:24] LABS: Hemoglobin A1c 5.5 % (3.8-5.6)
[2021-09-14 12:51] LABS: ALB/GLOB Ratio 0.6 RATIO (0.9-2.4); AST(SGOT) 48 U/L (15-37); Alanine Aminotransfer ALT/SGPT 33 U/L (16-61); Albumin, Serum 2.7 g/dL (3.2-5.0); Alkaline Phosphatase 96 U/L (45-117); Anion Gap 8 (5-15); BUN 11 mg/dL (7-18); BUN/Creat Ratio 10.5 RATIO (10-20); CRP 9.02 mg/L (0.0-3.0); Calcium,Total 8.4 mg/dL (8.5-10.1); Chloride 105 mmol/L (98-107); Creatinine, Serum 1.05 mg/dL (0.70-1.30); EST Glomerular Filtration Rate 75 mL/min (>60); Est Glom Filt Rate - Afr Amer 91 mL/min (>60); Ferritin 451 ng/mL (26-388); Globulin 4.6 g/dL (2.2-4.2); Glucose 116 mg/dL (74-106); LDH 210 U/L (87-241); Potassium 3.8 mmol/L (3.5-5.1); Protein, Total 7.3 g/dL (6.4-8.2); Sodium Level 139 mmol/L (136-145)
[2021-09-15 15:11] LABS: Anti-Centromere B Ab <0.2 AI (0.0-0.9); Anti-Chromatin 0.4 AI (0.0-0.9); Anti-Jo <0.2 AI (0.0-0.9); Anti-Scleroderma-70 AB <0.2 AI (0.0-0.9); Anti-ribosomal P Antibodies <0.2 AI (0.0-0.9); RNP Ab 0.3 AI (0.0-0.9); SJOGREN'S Anti-SS-A test 0.2 AI (0.0-0.9); SJOGREN'S Anti-SS-B test < 0.2 AI (0.0-0.9); Smith Ab <0.2 AI (0.0-0.9); Smith/RNP Ab <0.2 AI (0.0-0.9)
[2021-09-16 14:45] LABS: Anti-Mitochondrial AB <20.0 Units (0.0-20.0); Anti-dsDNA Ab <1 IU/mL (0-9)
[2021-09-19 09:08] LABS: Angiotensin Convert Enzyme 83 U/L (14-82); Ceruloplasmin 24.2 mg/dL (16.0-31.0); Cytoplasmic Ab (C-ANCA) 1:20 titer (Neg:<1:20)
[2021-09-19 10:21] LABS: Anti-Smooth Muscle ABS 12 Units (0-19); Copper, Serum or Plasma 104 ug/dL (69-132); Haptoglobin 19 mg/dL (32-363); Perinuclear Ab (P-ANCA) <1:20 titer (Neg:<1:20)
== END 2021-09-14 23:59 | disposition short-term general hospital (02) ==
PROVIDERS: PCP Family Medicine; Referring Provider Internal Medicine Gastroenterology; Visit Provider Internal Medicine Gastroenterology
DX: K75.81 Nonalcoholic steatohepatitis (NASH) (principal); I85.00 Esophageal varices without bleeding; K74.60 Unspecified cirrhosis of liver; R73.09 Other abnormal glucose
CPT/HCPCS: 36415; 76981; 80053; 82164; 82390; 82525; 82728; 83010; 83036; 83516; 83615; 85049; 85610; 85652; 85730; 86038; 86140; 86225; 86235; 86256

== ENCOUNTER 2021-09-15 16:00 | Outpatient (CLI) | payer MEDICARE, SELFPAY ==
--- NOTE | 2021-09-15 16:02 | CT_ITS ---
INDICATION: Liver disease staging -- Triple phase EXAMINATION: CT Abdomen And Pelvis WO/W Contrast Injection TECHNIQUE: Helically acquired images were obtained of the abdomen and pelvis after IV contrast. A radiation dose optimization technique was used for this scan. IV Contrast dosage and agent: IV 100mL [id number]-370 Oral contrast: None. COMPARISON: None. FINDINGS: Visualized lung bases: Unremarkable Liver: Cirrhotic nodular compatible with cirrhosis. Recanalization of the umbilical vein. Multiple gastroesophageal and splenic varices. Gallbladder: Gallbladder wall thickening likely chronic related to cirrhosis. Spleen: Unremarkable Pancreas: Unremarkable Adrenal Glands: Unremarkable Kidneys: Unremarkable Vasculature: Mild scattered aortoiliac atherosclerotic calcifications. GI Tract: Unremarkable Lymphadenopathy: None Peritoneum: Mild volume ascites. Bladder: Unremarkable Reproductive organs: The prostate is mildly enlarged. Bones/Soft tissues: There are diffuse degenerative changes of the spine. CT/CT Abd/Pelvis W/WO Contrast IMPRESSION: No LI-RADS 5 lesions are seen in the liver. Cirrhotic liver with evidence of portal hypertension including small volume ascites, recanalization of the umbilical vein and varices. Mild prostatomegaly. Correlate with PSA levels. NOTE: The LI-RADS / OPTN classification of liver lesions has been adopted to standardize MRI and CT scan reporting in patients at risk for hepatocellular carcinoma. The imaging criteria for definite hepatocellular carcinoma are the same for the LI-RADS and OPTN systems. LI-RADS criteria and documentation are available online at [email or web address].org/LIRADS LI-RADS 5 = OPTN 5 = Definitely hepatocellular carcinoma LI-RADS 4 = Probably hepatocellular carcinoma LI-RADS 3 = Indeterminate LI-RADS 2 = Probably benign LI-RADS 1 = Definitely benign Electronically Signed: Beto Guevara MD at 22:15 EST Tel , Service support ,
== END 2021-09-15 23:59 | disposition short-term general hospital (02) ==
LOC: CT 16:01
PROVIDERS: PCP Family Medicine; Referring Provider Internal Medicine Gastroenterology; Visit Provider Internal Medicine Gastroenterology
DX: K74.60 Unspecified cirrhosis of liver (principal); K75.81 Nonalcoholic steatohepatitis (NASH)
CPT/HCPCS: 74178; Q9967

== ENCOUNTER 2021-09-21 06:49 | Day surgery (SDC) | payer MEDICARE, SELFPAY ==
--- NOTE | 2021-09-21 | ESO_PTH ---
PATIENT: MERCEDES SHEPARD LOC: EN U#:[id number] AGE/SX: 66/M ROOM: RE09/21/[address]: Dr. Jerry Leon DO : 1955 BED: DIS: 09/21/2021 SPEC #: [id number] RECD: 09/21/21 12:42 STATUS: BATOOL RELilly #: [id number] JENNIFER: 09/21/21 00:[address]: Jerry Leon DEPT: SURGICAL PATHOLOGY RECD BY: David Franklin ENTERED: 09/21/21 12:42 SP TYPE: NACHO GERBER DR: Dr. Anthony Quijano MD Tissues: Esophagus, NOS Procedures: Special Stain Group II Surgery Specimen Level IV Alcian Blue/PAS (control) HEADER OPERATION: EGD ([facility] [place] PRE-OP DIAGNOSIS: Gynecomastia, esophageal varices, cytopenia, Liver cirrhosis TISSUE SUBMITTED: Distal esophagus biopsy MICROSCOPIC DIAGNOSIS Distal esophagus, biopsy: Fragments of gastroesophageal mucosa with moderate chronic inflammation. Intestinal metaplasia (goblet cell metaplasia) not identified. See comment. LOS:anabella 09/22/2021 COMMENT Alcian blue/PAS stain with matched control is used in the evaluation of the specimen. The specimen predominantly consists of gastric mucosa. MICROSCOPIC DESCRIPTION Slides are reviewed. GROSS DESCRIPTION Received in fixative is one container labeled with the patient's name and designated distal esophagus biopsy. The specimen consists of two irregular fragments of light bangura soft tissue that in aggregate measure 0.6 x 0.3 x 0.1 cm. The specimen is totally submitted in one cassette. / LOS:anabella 09/21/2021 TC:3 CPT: 20448, 03691
[2021-09-21 07:13] VITALS: BP 116/73; PULSE 68; RESP 16; TEMP 36.4; O2SAT 98; BMI 31.9
[2021-09-21] MEDS: Lactated Ringers 1,000 ML 15 ML IV (07:16)
--- NOTE | 2021-09-21 07:54 | HP.PCM_ITS ---
History and Physical Date of Admission: 09/21/21 Chief Complaint: fall, hit head, +LOC, vomitting, dark stool Details: MERCEDES SHEPARD, is a 65 M who presents to the office today for Last visit 06/28/21 for continued evaluation of esophageal varices, ascites, liver cirrhosis secondary to RENDON, cytopenia. No GI symptoms to report last visit. Grade 2-3 varices noted and banded during 06/06/21 EGD. Varices, esophageal ? repeat EGD for evaluation. Continue nadolol 20mg BID. Ascites ? no ascites noted in BLE or scrotum. No fluid wave. Continue spironolactone and Lasix. Liver cirrhosis secondary to RENDON ? no decompensation at this time. Meld 16 which is an improvement from hospitalization score of 30 early June,. Cytopenia ? see above. EGD performed 07/19/21. EGD ? Non-bleeding Grade II esophageal varices incompletely eradicated, banded. Portal hypertensive gastropathy. Small hiatal hernia. He has been having difficulty with pectoral tenderness. This was present prior to hospitalization, went away during hospitalization and has returned since discharge. Denies seeing his PCP for this. ROS Const Constitutional: No anorexia, fatigue, fever(s), weight change or sleep problems Eyes Eyes: No change in vision ENT ENT: No abnormal hearing, difficulty swallowing, mouth lesions, tongue swelling or throat swelling Resp Respiratory: No cough or shortness of breath Cardio Cardiology: No chest pain at rest, chest pain with exertion, shortness of breath or dyspnea on exertion Gastro GI: No difficulty swallowing Genitourinary Male: No difficulty urinating or burning urination Musc Musculoskeletal: No joint pain, joint swelling, muscle weakness or decreased muscle mass Skin Skin: No hair loss in leg, yellowing of the eye, itchy eyes, rash, skin ulcer or skin swelling Neuro Neurology: No abnormal hearing, abnormal movements, confusion, unsteady gait/balance or memory loss Psych Psychiatric: No anxiety, No confusion and No memory loss Endo Endocrine: No fatigue or weight change Aller/Imm Allergy/Immunologic: No itchy eyes, throat swelling or tongue swelling Justin/Lymp Hematologic/Lymphatic: No easy bleeding, easy bruising or enlarged lymph nodes Exam Const General: cooperative and comfortable Nutritional Appearance: average body habitus and well nourished HENMT Head: normal to inspection Ears: hearing grossly normal bilaterally Nose: external nose normal Face and sinus: normal facial exam Mouth: oral mucosae normal Throat: posterior oropharynx normal Eyes General: appearance normal, both eyes and all related structures Neck Neck: normal visual inspection Chest Chest palpation & inspection: normal inspection of the chest and normal palpation of entire chest wall Resp Effort & Inspection: normal respiratory effort Auscultation: Bilateral: Clear to Auscultation Cardio Palpation: normal PMI Rate: regular rate Rhythm: regular rhythm GI Inspection: normal to inspection Auscultation: normal bowel sounds Percussion: normal to percussion Palpation: no hepatosplenomegaly Skin General: no rashes or lesions noted Neuro General: patient alert Extrem General: normal to inspection Psych Affect: normal affect Quality Reporting Tobacco Screening ([facility] 138) Smoking Status: Former smoker Assessment and Plan Assessment and Plan (1) Gynecomastia: Status: Acute Plan - Dr. Jerry Leon, DO: Is likely secondary to spironolactone in the setting of cirrhosis. I will stop this medicine (2) Varices, esophageal: Status: Acute Plan - Dr. Jerry Leon, DO: He is status post banding we will need to perform surveillance endoscopy in approximately 2 months (3) Cytopenia: Status: Acute Plan - Dr. Jerry Leon, DO: Anemia likely secondary to antibiotic usage and with underlying cirrhosis. (4) Liver cirrhosis secondary to RENDON: Status: Acute Plan - Dr. Jerry Leon, DO: We will recheck her alpha-fetoprotein and will get imaging in approximately a month. I have re-examined the patient. There are no clinical changes since date of exam.
[2021-09-21 08:15] VITALS: BP 102/64; BP 116/73; PULSE 71; RESP 16; TEMP 36.5; O2SAT 99
--- NOTE | 2021-09-21 08:19 | OP.EGD_ITS ---
Patient Name: Julia Salcido Procedure Date: 09/21/2021 7:56 AM Date of : 1955 Age: 66 Procedure: Upper GI endoscopy Indications: Follow-up of esophageal varices Providers: Jerry Leon DO Medicines: See the Anesthesia note for documentation of the administered medications Patient Profile: This is a 66 year old male. Refer to note in patient chart for documentation of history and physical. Patient has symptoms. He is status post EGD for treatment of bleeding within the past three months. Complications: No immediate complications. Procedure: Pre-Anesthesia Assessment: - Prior to the procedure, a History and Physical was performed, and patient medications and allergies were reviewed. The risks and benefits of the procedure and the sedation options and risks were discussed with the patient. All questions were answered and informed consent was obtained. Patient identification and proposed procedure were verified by the physician in the pre-procedure area. Mental Status Examination: alert and oriented. Airway Examination: normal oropharyngeal airway and neck mobility. Respiratory Examination: clear to auscultation. CV Examination: normal. Prophylactic Antibiotics: The patient does not require prophylactic antibiotics. Prior Anticoagulants: The patient has taken no previous anticoagulant or antiplatelet agents. ASA Grade Assessment: II - A patient with mild systemic disease. After reviewing the risks and benefits, the patient was deemed in satisfactory condition to undergo the procedure. The anesthesia plan was to use moderate sedation / analgesia (conscious sedation). Immediately prior to administration of medications, the patient was re-assessed for adequacy to receive sedatives. The heart rate, respiratory rate, oxygen saturations, blood pressure, adequacy of pulmonary ventilation, and response to care were monitored throughout the procedure. The physical status of the patient was re-assessed after the procedure. After obtaining informed consent, the endoscope was passed under direct vision. Throughout the procedure, the patient's blood pressure, pulse, and oxygen saturations were monitored continuously. The gastroscope was introduced through the mouth, and advanced to the second part of duodenum. The upper GI endoscopy was accomplished without difficulty. The patient tolerated the procedure well. Moderate Sedation: Moderate (conscious) sedation was administered by the endoscopy nurse and supervised by the endoscopist. The following parameters were monitored: oxygen saturation, heart rate, blood pressure, and response to care. Total physician intraservice time was 2 minutes. Scope In: 8:03:03 AM Scope Out: 8:08:54 AM Total Procedure Duration Time 0 hours 5 minutes 51 seconds Findings: Small (< 5 mm) varices were found in the middle third of the esophagus. They were 5 mm in largest diameter. Moderate portal hypertensive gastropathy was found in the stomach. The second portion of the duodenum was normal. There were esophageal mucosal changes suspicious for short-segment Thompson's esophagus present in the lower third of the esophagus. The maximum longitudinal extent of these mucosal changes was 2 cm in length. Mucosa was biopsied with a cold forceps for histology in a targeted manner at intervals of 1 cm in the lower third of the esophagus. One specimen bottle was sent to pathology. Verification of patient identification for the specimen was done. Estimated blood loss was minimal. Impression: - Small (< 5 mm) esophageal varices. - Portal hypertensive gastropathy. - Normal second portion of the duodenum. - Esophageal mucosal changes suspicious for short-segment Thompson's esophagus. Biopsied. Recommendation: - Discharge patient to home. - Resume previous diet. - Continue present medications. - Await pathology results. - Repeat upper endoscopy in 1 year for surveillance. - Return to GI office. Procedure Code(s): --- Professional --- 58740, Esophagogastroduodenoscopy, flexible, transoral; with biopsy, single or multiple CPT copyright 2017 [employer]. All rights reserved. The codes documented in this report are preliminary and upon scarfing machine operator review may be revised to meet current compliance requirements. Jerry Leon DO 09/21/2021 8:19:12 AM This report has been signed electronically. Number of Addenda: 1 Note Initiated On: 09/21/2021 7:56 AM Addendum Number: 1 Addendum Date: 05/10/2022 6:20:20 AM MAC was used instead of moderate sedation for the patient. Jerry Leon DO 05/10/2022 6:20:24 AM This report has been signed electronically.
--- NOTE | 2021-09-21 08:19 | OP.CCLET_ITS ---
05/10/2022 Anthony Quijano Re : Upper GI endoscopy procedure for Julia Tinsleyr Samm This procedure was performed on September. My impressions and recommendations are as follows: Impressions : - Small (< 5 mm) esophageal varices. - Portal hypertensive gastropathy. - Normal second portion of the duodenum. - Esophageal mucosal changes suspicious for short-segment Thompson's esophagus. Biopsied. Recommendations : - Discharge patient to home. - Resume previous diet. - Continue present medications. - Await pathology results. - Repeat upper endoscopy in 1 year for surveillance. - Return to GI office. My findings are described in the full procedure note, which is enclosed. If I can be of further assistance, please feel free to contact me at . Sincerely, Jerry Leon, 09/21/2021 8:19:12 AM This report has been signed electronically.
[2021-09-21 08:20] VITALS: BP 104/66; BP 116/73; PULSE 70; RESP 16; O2SAT 98
[2021-09-21 08:25] VITALS: BP 104/69; BP 116/73; PULSE 71; RESP 16; O2SAT 99
[2021-09-21 08:30] VITALS: BP 109/74; BP 116/73; PULSE 74; RESP 16; TEMP 36.4; O2SAT 100
[2021-09-21 08:45] VITALS: BP 116/73
[2021-09-21 11:16] LABS: Bedside Glucose 89 mg/dL (70-110)
== END 2021-09-21 23:59 | disposition home or self-care (01) ==
LOC: EN 06:52 → AC 06:53
PROVIDERS: PCP Family Medicine; Referring Provider Family Medicine; Visit Provider Internal Medicine Gastroenterology
PROC: 0DJ08ZZ Inspection of Upper Intestinal Tract, Via Natural or Artificial Opening Endoscopic (ICD-10-PCS; CPT 43235; principal; 2021-09-21 07:55)
DX: K76.6 Portal hypertension (principal); I85.10 Secondary esophageal varices without bleeding; K74.60 Unspecified cirrhosis of liver; E11.9 Type 2 diabetes mellitus without complications; K75.81 Nonalcoholic steatohepatitis (NASH); K31.89 Other diseases of stomach and duodenum; R18.8 Other ascites; Z87.891 Personal history of nicotine dependence; K44.9 Diaphragmatic hernia without obstruction or gangrene; D75.9 Disease of blood and blood-forming organs, unspecified; N62 Hypertrophy of breast; K21.00 Gastro-esophageal reflux disease with esophagitis, without bleeding; M10.9 Gout, unspecified; I10 Essential (primary) hypertension; Z87.19 Personal history of other diseases of the digestive system; Z79.84 Long term (current) use of oral hypoglycemic drugs; Z79.899 Other long term (current) drug therapy; K22.70 Barrett's esophagus without dysplasia
CPT/HCPCS: 43239; 82962; 88305; 88313; J7120; J2405

== ENCOUNTER 2021-10-03 07:51 | Outpatient (CLI) | payer MEDICARE, SELFPAY ==
[2021-10-03] VITALS (11 sets, daily range): BP systolic 92–120; BP diastolic 56–80; PULSE 71–89; RESP 13–20; TEMP 36.4; O2SAT 95–100; BMI 31.4
--- NOTE | 2021-10-03 | LIVB_PTH ---
PATIENT: MERCEDES SHEPARD LOC: CT U#:[id number] AGE/SX: 66/M ROOM: RE10/03/[address]: Dr. Jerry Leon DO : 1955 BED: DIS: 10/03/2021 SPEC #: [id number] RECD: 10/03/21 11:17 STATUS: BATOOL RELilly #: [id number] JENNIFER: 10/03/21 00:[address]: Jerry Leon DEPT: SURGICAL PATHOLOGY RECD BY: David Franklin ENTERED: 10/03/21 11:17 SP TYPE: LIVER BX OTHR DR: Dr. Anthony Quijano MD Tissues: Liver, NOS Procedures: PAS with Diastase (control) Trichrome (control) Special Stain Group II PAS Stain (control) Surgery Specimen Level V Retic (control) Iron Stain (control) HEADER OPERATION: CT-guided liver biopsy PRE-OP DIAGNOSIS: Liver cirrhosis TISSUE SUBMITTED: Liver 18-gauge core biopsy x3 MICROSCOPIC DIAGNOSIS Liver, core biopsy: Cirrhosis. See comment. AM:anabella 10/04/2021 COMMENT Sections show septal and lobular inflammatory activity with bridging necrosis. Trichrome stain reveals broad band fibrosis with micronodular hepatic parenchymal sequestration. Iron stain reveals increased intraparenchymal iron deposition (2/4). PAS stain with and without diastase does not reveal accumulation of abnormal proteins. Reticulin stain reveals normal hepatic architecture. All matched controls are appropriate. Clinical correlation is suggested. MICROSCOPIC DESCRIPTION Slides are reviewed. GROSS DESCRIPTION Received in fixative is one container labeled with the patient's name and designated liver. The specimen consists of three elongated cores of bangura tissue. Each core averages 1.5 cm in length and <0.1 cm in diameter. The specimen is totally submitted in one cassette. / AM:anabella 10/03/2021 TC:3 CPT: 98267, 67027 x5
--- NOTE | 2021-10-03 08:02 | CT_ITS ---
PROCEDURE: CT DIRECTED CORE LIVER BIOPSY INDICATION: Male, 66 years old. Cirrhosis. PHYSICIAN: Dr. MONALISA VALDES CONSENT: Written informed consent was obtained having explained the risks, benefits and alternatives in detail with the patient who accepted the risks and agreed to proceed. Laboratory review and clinical assessment was performed. CONSCIOUS SEDATION PROTOCOL: The Drugs used were: 2 mg Versed, IV., and 50 mcg Fentanyl, IV. The sedation time was: 21 minutes. Conscious sedation was started at 9:03 AM and terminated at 9:24 AM. The conscious sedation protocol was independently monitored. RADIATION DOSAGE (If Supplied By Facility): CTDIvol = ( 20 ) mGy, DLP = ( 500.49 ) mGycm Individualized dose optimization techniques were used for this CT. TECHNIQUE: Using CT image guidance with image documentation, a suitable location in the left lobe of the liver was identified. Using an anterior approach, puncture of the liver was uneventful with an 18-gauge core needle system. 3, 18-gauge core samples were obtained, and submitted in formalin to the pathologist for further assessment. Followup CT scan revealed no distinct sequelae. CT/Biopsy/Inj or Needle Placement IMPRESSION: 1. CT directed core needle biopsy of the liver, using CT image guidance with image documentation as described. 2. Conscious Sedation protocol utilized with independent monitoring. Electronically Signed: Nito Rodriguez MD at 9:53 EST ,
[2021-10-03 08:08] LABS: POSITIVE COUNT YES; Platelet Count 90 K/mm3 (150-450)
[2021-10-03 08:21] LABS: International Normalized Ratio 1.3; Prothrombin Time (Protime)PT. 15.8 SECONDS (11.7-14.9)
[2021-10-03 08:22] LABS: Partial Thromboplast Time 33.8 Seconds (24.1-36.2)
[2021-10-03] MEDS: Midazolam 2 MG/2 ML Syringe IV (09:03)
[2021-10-03] MEDS: fentaNYL 100 MCG/2 ML Ampul IV (09:05)
[2021-10-03] MEDS: Lidocaine 2% (20 ml mdv) 20 ML Vial INFILT (09:15)
== END 2021-10-03 23:59 | disposition home or self-care (01) ==
LOC: CT 07:55
PROVIDERS: PCP Family Medicine; Referring Provider Internal Medicine Gastroenterology; Visit Provider Internal Medicine Gastroenterology
DX: K74.60 Unspecified cirrhosis of liver (principal); I85.10 Secondary esophageal varices without bleeding; K75.81 Nonalcoholic steatohepatitis (NASH)
CPT/HCPCS: 47000; 36415; 77012; 85049; 85610; 85730; 88307; 88313; 99156; J7040; A4216

== ENCOUNTER 2021-11-08 09:55 | Outpatient (CLI) | payer MEDICARE, SELFPAY ==
[2021-11-08 10:20] LABS: Absolute Lymphocyte Count 0.81 X10^3/uL (0.83-4.51); Absolute Neutrophil Count 1.7 X10^3/uL (2.0-7.7); Basophil# 0.02 X10^3/uL; Basophil% 0.6 % (0-1); Eosinophil# 0.17 X10^3/uL; Eosinophils% 5.5 % (0-5); Hematocrit 30.5 % (40-54); Hemoglobin 10.4 g/dL (13.0-16.5); Lymphocyte # 0.81 X10^3/ul (0.83-4.51); Lymphocyte % 26.3 % (19-41); Mean Corp Hgb Conc 34.1 g/dL (32-36); Mean Corpuscular Hgb 35.5 pg (27.0-32.0); Mean Corpuscular Volume 104.1 fL (80-94); Mean Platelet Vol. 11.5 fl (6.2-12.0); Monocyte# 0.34 X10^3/uL; NRBC Flagged by Analyzer 0 % (0-5); Neutrophil # 1.73 X10^3/uL (2.7-7.7); Neutrophil % 56.3 % (47-70); POSITIVE COUNT YES; RBC Distribution Width CV 14.9 % (11.6-14.6); RBC Distribution Width SD 56.7 fl (35.1-43.9); Red Blood Count 2.93 M/mm3 (4.6-6.2); White Blood Count 3.1 K/mm3 (4.4-11.0)
[2021-11-08 10:22] LABS: Platelet Count 91 K/mm3 (150-450)
[2021-11-08 10:28] LABS: International Normalized Ratio 1.3; Prothrombin Time (Protime)PT. 15.9 SECONDS (11.7-14.9)
[2021-11-08 10:35] LABS: Hemoglobin A1c 4.8 % (3.8-5.6)
[2021-11-08 10:53] LABS: ALB/GLOB Ratio 0.7 RATIO (0.9-2.4); AST(SGOT) 42 U/L (15-37); Alanine Aminotransfer ALT/SGPT 32 U/L (16-61); Albumin, Serum 2.9 g/dL (3.2-5.0); Alkaline Phosphatase 126 U/L (45-117); Anion Gap 7 (5-15); BUN 17 mg/dL (7-18); BUN/Creat Ratio 15.6 RATIO (10-20); Calcium,Total 8.6 mg/dL (8.5-10.1); Chloride 106 mmol/L (98-107); Creatinine, Serum 1.09 mg/dL (0.70-1.30); EST Glomerular Filtration Rate 72 mL/min (>60); Est Glom Filt Rate - Afr Amer 87 mL/min (>60); Globulin 4.3 g/dL (2.2-4.2); Glucose 126 mg/dL (74-106); Potassium 3.9 mmol/L (3.5-5.1); Protein, Total 7.2 g/dL (6.4-8.2); Sodium Level 139 mmol/L (136-145)
[2021-11-12 17:06] LABS: Immunoglobulin A 735 mg/dL (61-437); Immunoglobulin G 1640 mg/dL (603-1613); Immunoglobulin M 128 mg/dL (20-172)
[2021-11-12 18:06] LABS: Immunoglobulin E 633 IU/mL (6-495)
== END 2021-11-08 23:59 | disposition home or self-care (01) ==
LOC: LAB 09:56
PROVIDERS: PCP Family Medicine; Referring Provider Internal Medicine Gastroenterology; Visit Provider Internal Medicine Gastroenterology
DX: I85.00 Esophageal varices without bleeding (principal); K74.60 Unspecified cirrhosis of liver; E13.9 Other specified diabetes mellitus without complications; K75.81 Nonalcoholic steatohepatitis (NASH)
CPT/HCPCS: 36415; 80053; 82140; 82784; 82785; 83036; 85025; 85610; 85730

== ENCOUNTER → 2022-01-05 | Outpatient (CLI) | payer MEDICARE, SELFPAY ==
[2022-01-05 10:58] LABS: International Normalized Ratio 1.3; Prothrombin Time (Protime)PT. 15.8 SECONDS (11.7-14.9)
[2022-01-05 11:18] LABS: ALB/GLOB Ratio 0.7 RATIO (0.9-2.4); AST(SGOT) 43 U/L (15-37); Alanine Aminotransfer ALT/SGPT 35 U/L (16-61); Albumin, Serum 2.9 g/dL (3.2-5.0); Alkaline Phosphatase 128 U/L (45-117); Anion Gap 5 (5-15); BUN 18 mg/dL (7-18); BUN/Creat Ratio 16.2 RATIO (10-20); Calcium,Total 9.1 mg/dL (8.5-10.1); Chloride 109 mmol/L (98-107); Creatinine, Serum 1.11 mg/dL (0.70-1.30); EST Glomerular Filtration Rate 70 mL/min (>60); Est Glom Filt Rate - Afr Amer 85 mL/min (>60); Globulin 4.1 g/dL (2.2-4.2); Glucose 141 mg/dL (74-106); Potassium 4.3 mmol/L (3.5-5.1); Sodium Level 141 mmol/L (136-145)
== END | disposition home or self-care (01) ==
LOC: LAB 10:27
PROVIDERS: PCP Family Medicine; Referring Provider Internal Medicine Gastroenterology; Visit Provider Internal Medicine Gastroenterology
DX: K75.81 Nonalcoholic steatohepatitis (NASH) (principal); I85.00 Esophageal varices without bleeding; K74.60 Unspecified cirrhosis of liver
CPT/HCPCS: 36415; 80053; 82140; 85610

== ENCOUNTER → 2022-01-17 | Outpatient (CLI) | payer MEDICARE, SELFPAY ==
[2022-01-17 07:46] LABS: Erythrocyte Sedimentation Rate 14 mm/hr (0-20)
[2022-01-17 07:50] LABS: Absolute Lymphocyte Count 0.79 X10^3/uL (0.83-4.51); Absolute Neutrophil Count 1.1 X10^3/uL (2.0-7.7); Basophil# 0.02 X10^3/uL; Basophil% 0.9 % (0-1); Eosinophils% 8.5 % (0-5); Hematocrit 30.5 % (40-54); Hemoglobin 10.6 g/dL (13.0-16.5); Lymphocyte # 0.79 X10^3/ul (0.83-4.51); Lymphocyte % 33.6 % (19-41); Mean Corp Hgb Conc 34.8 g/dL (32-36); Mean Corpuscular Volume 100.7 fL (80-94); Mean Platelet Vol. 11.8 fl (6.2-12.0); Monocyte# 0.28 X10^3/uL; Monocyte% 11.9 % (0-10); NRBC Flagged by Analyzer 0 % (0-5); Neutrophil # 1.05 X10^3/uL (2.7-7.7); Neutrophil % 44.7 % (47-70); POSITIVE COUNT YES; Platelet Count 87 K/mm3 (150-450); RBC Distribution Width SD 50.8 fl (35.1-43.9); Red Blood Count 3.03 M/mm3 (4.6-6.2); White Blood Count 2.4 K/mm3 (4.4-11.0)
[2022-01-17 08:11] LABS: ALB/GLOB Ratio 0.8 RATIO (0.9-2.4); AST(SGOT) 41 U/L (15-37); Alanine Aminotransfer ALT/SGPT 33 U/L (16-61); Albumin, Serum 3.1 g/dL (3.2-5.0); Alkaline Phosphatase 122 U/L (45-117); Anion Gap 5 (5-15); BUN 18 mg/dL (7-18); CRP < 2.90 mg/L (0.0-3.0); Calcium,Total 9.1 mg/dL (8.5-10.1); Chloride 110 mmol/L (98-107); Creatinine, Serum 1.29 mg/dL (0.70-1.30); EST Glomerular Filtration Rate 59 mL/min (>60); Est Glom Filt Rate - Afr Amer 72 mL/min (>60); Globulin 4.1 g/dL (2.2-4.2); Glucose 152 mg/dL (74-106); LDH 169 U/L (87-241); Potassium 3.9 mmol/L (3.5-5.1); Protein, Total 7.2 g/dL (6.4-8.2); Sodium Level 140 mmol/L (136-145)
[2022-01-17 09:29] LABS: International Normalized Ratio 1.3; Prothrombin Time (Protime)PT. 16.2 SECONDS (11.7-14.9)
== END | disposition home or self-care (01) ==
PROVIDERS: PCP Family Medicine; Referring Provider Internal Medicine Gastroenterology; Visit Provider Internal Medicine Gastroenterology
DX: E72.20 Disorder of urea cycle metabolism, unspecified (principal); I85.00 Esophageal varices without bleeding
CPT/HCPCS: 36415; 80053; 82140; 83615; 85025; 85610; 85652; 86140

== ENCOUNTER → 2022-04-16 | Outpatient (CLI) | payer MEDICARE, SELFPAY ==
[2022-04-16 08:27] LABS: Absolute Lymphocyte Count 0.77 X10^3/uL (0.83-4.51); Absolute Neutrophil Count 0.9 X10^3/uL (2.0-7.7); Basophil# 0.04 X10^3/uL; Basophil% 1.9 % (0-1); Eosinophil# 0.15 X10^3/uL; Eosinophils% 7.1 % (0-5); Hematocrit 30.8 % (40-54); Hemoglobin 10.6 g/dL (13.0-16.5); Lymphocyte # 0.77 X10^3/ul (0.83-4.51); Lymphocyte % 36.7 % (19-41); Mean Corp Hgb Conc 34.4 g/dL (32-36); Mean Corpuscular Hgb 34.6 pg (27.0-32.0); Mean Corpuscular Volume 100.7 fL (80-94); Mean Platelet Vol. 11.6 fl (6.2-12.0); Monocyte# 0.23 X10^3/uL; NRBC Flagged by Analyzer 0 % (0-5); Neutrophil # 0.89 X10^3/uL (2.7-7.7); Neutrophil % 42.3 % (47-70); POSITIVE COUNT YES; POSITIVE DIFFERENTIAL YES; Platelet Count 85 K/mm3 (150-450); RBC Distribution Width CV 14.5 % (11.6-14.6); RBC Distribution Width SD 52.8 fl (35.1-43.9); Red Blood Count 3.06 M/mm3 (4.6-6.2); White Blood Count 2.1 K/mm3 (4.4-11.0)
[2022-04-16 08:30] LABS: Differential Indicated SCAN CRITERIA MET
[2022-04-16 08:41] LABS: International Normalized Ratio 1.3; Prothrombin Time (Protime)PT. 15.8 SECONDS (11.7-14.9)
[2022-04-16 08:57] LABS: ALB/GLOB Ratio 0.8 RATIO (0.9-2.4); AST(SGOT) 38 U/L (15-37); Alanine Aminotransfer ALT/SGPT 36 U/L (16-61); Alkaline Phosphatase 98 U/L (45-117); Anion Gap 6 (5-15); BUN 21 mg/dL (7-18); BUN/Creat Ratio 18.6 RATIO (10-20); Calcium,Total 9.1 mg/dL (8.5-10.1); Chloride 107 mmol/L (98-107); Creatinine, Serum 1.13 mg/dL (0.70-1.30); EST Glomerular Filtration Rate 69 mL/min (>60); Est Glom Filt Rate - Afr Amer 83 mL/min (>60); Glucose 174 mg/dL (74-106); Potassium 3.8 mmol/L (3.5-5.1); Sodium Level 140 mmol/L (136-145)
[2022-04-16 09:04] LABS: Platelet Estimate MOD DEC (ADEQ)
[2022-04-17 08:49] LABS: AFP, Tumor Marker 4.2 ng/mL (0.0-8.4)
== END | disposition home or self-care (01) ==
LOC: LAB 08:03
PROVIDERS: PCP Family Medicine; Referring Provider Internal Medicine Gastroenterology; Visit Provider Internal Medicine Gastroenterology
DX: C22.0 Liver cell carcinoma (principal); K74.60 Unspecified cirrhosis of liver; K75.81 Nonalcoholic steatohepatitis (NASH)
CPT/HCPCS: 36415; 80053; 82105; 85025; 85610

== ENCOUNTER → 2022-05-11 | Outpatient (CLI) | payer MEDICARE, SELFPAY ==
[2022-05-11 08:17] LABS: International Normalized Ratio 1.3; Prothrombin Time (Protime)PT. 15.6 SECONDS (11.7-14.9)
[2022-05-11 08:31] LABS: ALB/GLOB Ratio 0.7 RATIO (0.9-2.4); AST(SGOT) 45 U/L (15-37); Alanine Aminotransfer ALT/SGPT 41 U/L (16-61); Albumin, Serum 2.9 g/dL (3.2-5.0); Alkaline Phosphatase 130 U/L (45-117); Anion Gap 6 (5-15); BUN 17 mg/dL (7-18); BUN/Creat Ratio 13.6 RATIO (10-20); Chloride 108 mmol/L (98-107); Creatinine, Serum 1.25 mg/dL (0.70-1.30); EST Glomerular Filtration Rate 61 mL/min (>60); Est Glom Filt Rate - Afr Amer 74 mL/min (>60); Globulin 3.9 g/dL (2.2-4.2); Glucose 172 mg/dL (74-106); Potassium 4.1 mmol/L (3.5-5.1); Protein, Total 6.8 g/dL (6.4-8.2); Sodium Level 141 mmol/L (136-145)
== END | disposition home or self-care (01) ==
LOC: LAB 07:49
PROVIDERS: PCP Family Medicine; Referring Provider Internal Medicine Gastroenterology; Visit Provider Internal Medicine Gastroenterology
DX: K75.81 Nonalcoholic steatohepatitis (NASH) (principal); K74.60 Unspecified cirrhosis of liver
CPT/HCPCS: 36415; 80053; 82140; 85610

== ENCOUNTER → 2022-10-01 | Outpatient (CLI) | payer MEDICARE, SELFPAY ==
[2022-10-01 15:34] LABS: Absolute Lymphocyte Count 1.12 X10^3/uL (0.83-4.51); Absolute Neutrophil Count 1.7 X10^3/uL (2.0-7.7); Basophil# 0.03 X10^3/uL; Basophil% 0.9 % (0-1); Eosinophil# 0.21 X10^3/uL; Eosinophils% 6.1 % (0-5); Hemoglobin 12.1 g/dL (13.0-16.5); Lymphocyte # 1.12 X10^3/ul (0.83-4.51); Lymphocyte % 32.3 % (19-41); Mean Corp Hgb Conc 34.6 g/dL (32-36); Mean Corpuscular Volume 95.4 fL (80-94); Mean Platelet Vol. 11.6 fl (6.2-12.0); Monocyte# 0.38 X10^3/uL; NRBC Flagged by Analyzer 0 % (0-5); Neutrophil # 1.72 X10^3/uL (2.7-7.7); Neutrophil % 49.4 % (47-70); Platelet Count 105 K/mm3 (150-450); RBC Distribution Width CV 13.6 % (11.6-14.6); RBC Distribution Width SD 47.4 fl (35.1-43.9); Red Blood Count 3.67 M/mm3 (4.6-6.2); White Blood Count 3.5 K/mm3 (4.4-11.0)
[2022-10-01 16:03] LABS: Erythrocyte Sedimentation Rate 5 mm/hr (0-20)
[2022-10-01 16:04] LABS: International Normalized Ratio 1.3; Prothrombin Time (Protime)PT. 15.5 SECONDS (11.7-14.9)
[2022-10-01 16:17] LABS: ALB/GLOB Ratio 0.8 RATIO (0.9-2.4); AST(SGOT) 47 U/L (15-37); Alanine Aminotransfer ALT/SGPT 42 U/L (16-61); Albumin, Serum 3.1 g/dL (3.2-5.0); Alkaline Phosphatase 113 U/L (45-117); Anion Gap 10 (5-15); BUN 15 mg/dL (7-18); BUN/Creat Ratio 12.6 RATIO (10-20); CRP < 2.90 mg/L (0.0-3.0); Calcium,Total 8.8 mg/dL (8.5-10.1); Chloride 105 mmol/L (98-107); Creatinine, Serum 1.19 mg/dL (0.70-1.30); EST Glomerular Filtration Rate 65 mL/min (>60); Est Glom Filt Rate - Afr Amer 78 mL/min (>60); Globulin 3.9 g/dL (2.2-4.2); Glucose 92 mg/dL (74-106); LDH 184 U/L (87-241); Potassium 3.7 mmol/L (3.5-5.1); Sodium Level 140 mmol/L (136-145)
== END | disposition home or self-care (01) ==
LOC: LAB 13:26
PROVIDERS: PCP Family Medicine; Referring Provider Internal Medicine Gastroenterology; Visit Provider Internal Medicine Gastroenterology
DX: K75.81 Nonalcoholic steatohepatitis (NASH) (principal); K74.60 Unspecified cirrhosis of liver
CPT/HCPCS: 36415; 80053; 82140; 83615; 85025; 85610; 85652; 86140

== ENCOUNTER → 2023-02-01 | Outpatient (CLI) | payer MEDICARE, SELFPAY ==
[2023-02-01 10:22] LABS: Absolute Lymphocyte Count 0.89 X10^3/uL (0.83-4.51); Absolute Neutrophil Count 1.3 X10^3/uL (2.0-7.7); Basophil# 0.02 X10^3/uL; Basophil% 0.7 % (0-1); Eosinophil# 0.18 X10^3/uL; Eosinophils% 6.7 % (0-5); Hematocrit 36.3 % (40-54); Hemoglobin 12.6 g/dL (13.0-16.5); Lymphocyte # 0.89 X10^3/ul (0.83-4.51); Mean Corp Hgb Conc 34.7 g/dL (32-36); Mean Corpuscular Hgb 34.1 pg (27.0-32.0); Mean Corpuscular Volume 98.1 fL (80-94); Mean Platelet Vol. 11.1 fl (6.2-12.0); Monocyte# 0.29 X10^3/uL; Monocyte% 10.7 % (0-10); NRBC Flagged by Analyzer 0 % (0-5); Neutrophil # 1.32 X10^3/uL (2.7-7.7); Neutrophil % 48.9 % (47-70); POSITIVE COUNT YES; Platelet Count 93 K/mm3 (150-450); RBC Distribution Width SD 49.9 fl (35.1-43.9); White Blood Count 2.7 K/mm3 (4.4-11.0)
[2023-02-01 10:26] LABS: International Normalized Ratio 1.2; Prothrombin Time (Protime)PT. 15.1 SECONDS (11.7-14.9)
[2023-02-01 10:39] LABS: ALB/GLOB Ratio 0.9 RATIO (0.9-2.4); AST(SGOT) 58 U/L (15-37); Alanine Aminotransfer ALT/SGPT 48 U/L (16-61); Albumin, Serum 3.3 g/dL (3.2-5.0); Alkaline Phosphatase 145 U/L (45-117); Anion Gap 7 (5-15); BUN 16 mg/dL (7-18); BUN/Creat Ratio 13.3 RATIO (10-20); Calcium,Total 9.2 mg/dL (8.5-10.1); Chloride 109 mmol/L (98-107); EST Glomerular Filtration Rate 64 mL/min (>60); Est Glom Filt Rate - Afr Amer 78 mL/min (>60); Globulin 3.8 g/dL (2.2-4.2); Glucose 104 mg/dL (74-106); Potassium 3.8 mmol/L (3.5-5.1); Protein, Total 7.1 g/dL (6.4-8.2); Sodium Level 142 mmol/L (136-145)
== END | disposition home or self-care (01) ==
LOC: LAB 09:55
PROVIDERS: PCP Family Medicine; Referring Provider Nurse Practitioner Adult Health; Visit Provider Nurse Practitioner Adult Health
DX: K75.81 Nonalcoholic steatohepatitis (NASH) (principal); K74.60 Unspecified cirrhosis of liver
CPT/HCPCS: 36415; 80053; 82140; 85025; 85610

== ENCOUNTER 2023-05-28 11:19 | Day surgery (SDC) | payer MEDICARE, SELFPAY ==
[2023-05-28 11:48] VITALS: BP 145/86; PULSE 59; RESP 18; TEMP 36.7; O2SAT 100; BMI 26.5
[2023-05-28] MEDS: Lactated Ringers 1,000 ML 15 ML IV (11:50)
--- NOTE | 2023-05-28 12:12 | HP.PCM_ITS ---
History and Physical Date of Admission: 05/28/23 Follow-up cirrhosis Details: MERCEDES SHEPARD, is a 67 M who presents to the office today for 3 month f/u cirrhosis. Pt has no concerns today. Doesn't need refills. 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 Takes lactulose 15 ml twice a day, xifaxan 550 mg bid, nadolol, pantoprazole. ?if taking iron. Denies bleeding, jaundice, pruritus, confusion, sleep issues, ascites, edema. 09/2021 EGD: small esophageal varices, portal hypertensive gastropathy, negative Thompson's ROS Const Constitutional: No fatigue, fever(s), frequent falls, headache(s), weakness or weight change ENT ENT: No headache(s) or difficulty swallowing Cardio Cardiology: No leg pain with exertion Gastro GI: No abdominal pain, bloating, change in bowel habits, constipation, diarrhea, heartburn, difficulty swallowing, excessive flatus, Vomiting blood/hematemesis, Blood in stool, nausea/dyspepsia or vomiting Musc Musculoskeletal: No joint pain, back pain, joint swelling, muscle cramps, muscle weakness, numbness, stiffness, tingling, Arthritis, sciatica, restless legs, leg pain at night or leg pain with exertion Skin Skin: No dry skin, lesions, itchy eyes or rash Neuro Neurology: No behavioral changes, unsteady gait/balance, weakness, frequent falls, headache(s), numbness, tingling, restless legs, tremor(s), Increased tone in limbs, paralysis or seizures Psych Psychiatric: No anxiety, No behavioral changes, No depression, No paranoia, No Compulsive Behavior, No hyperactivity, No inattentiveness, No obsessions/compulsions, No Temper Tantrums and No suicidal ideation Endo Endocrine: No fatigue or weight change Aller/Imm Allergy/Immunologic: No itchy eyes Justin/Lymp Hematologic/Lymphatic: Positive for easy bruising; No easy bleeding Exam Const General: cooperative, healthy appearing and comfortable Nutritional Appearance: overweight Orientation: alert, awake and oriented x3 HENMT Head: normal to inspection Eyes Sclera: sclerae normal Resp Effort & Inspection: normal respiratory effort GI Inspection: normal to inspection Palpation: soft and nontender Skin General: no jaundice Neuro Speech: speech normal Gait: normal gait Quality Reporting Tobacco Screening ([facility] 138) Smoking Status: Former smoker Assessment and Plan Assessment and Plan (1) Liver cirrhosis secondary to RENDON: Status: Chronic Plan: He asks if he can have an occasional beer, Dr Edward documented that he wanted to see stability of labs first Will update labs today He will need to be scheduled at some point to update EGD to reevaluate esophageal varices Wants to decrease frequency of f/u but I told him I wouldn't recommend f/u any farther out than 6 mos, may need sooner f/u based on lab results Orders: Orders Ammonia Today K74.60 - Unspecified cirrhosis of liver, K75.81 - Nonalcoholic steatohepatitis (RENDON) CBC W/Diff, Automated Today K74.60 - Unspecified cirrhosis of liver, K75.81 - Nonalcoholic steatohepatitis (RENDON) Comprehensive Metabolic Profil Today K74.60 - Unspecified cirrhosis of liver, K75.81 - Nonalcoholic steatohepatitis (RENDON) Prothrombin Time w/INR Today K74.60 - Unspecified cirrhosis of liver, K75.81 - Nonalcoholic steatohepatitis (RENDON) I have examined the patient and the H&P has been reviewed. There are no clinical changes since date of exam.
--- NOTE | 2023-05-28 12:30 | EGD_PTH ---
PATIENT: MERCEDES SHEPARD LOC: EN U#:[id number] AGE/SX: 67/M ROOM: RE05/28/[address]: Dr. Jerry Leon DO : 1955 BED: DIS: 05/28/2023 SPEC #: [id number] RECD: 05/28/23 13:40 STATUS: BATOOL RELilly #: [id number] JENNIFER: 05/28/23 12:[address]: Jerry Leon DEPT: SURGICAL PATHOLOGY RECD BY: Christen Avitia ENTERED: 05/29/23 14:28 SP TYPE: EGD BIOPSY OTHR DR: Dr. Anthony Quijano MD Tissues: Gastric mucous membrane Procedures: Surgery Specimen Level IV HEADER OPERATION: EGD ([facility] [place]) with biopsy PRE-OP DIAGNOSIS: Liver cirrhosis secondary to RENDON TISSUE SUBMITTED: Gastric body biopsy for H. pylori and path MICROSCOPIC DIAGNOSIS Gastric body, biopsy: Mild gastritis. See microscopic description and comment. SJ:anabella 05/30/2023 COMMENT The results of immunohistochemistry for Helicobacter pylori will be reported separately ([id number]). MICROSCOPIC DESCRIPTION Slides are reviewed. The specimen shows fragments of gastric mucosa with chronic inflammatory cell infiltrates in the lamina propria consisting of lymphocytes and plasma cells, consistent with mild chronic gastritis. GROSS DESCRIPTION Received in fixative is one container labeled with the patient's name and designated gastric body biopsy. The specimen consists of two irregular fragments of light bangura soft tissue that in aggregate measure 0.6 x 0.3 x 0.1 cm. The specimen is totally submitted in one cassette. / LOS:anabella 05/29/2023 TC:3 CPT: 64864
--- NOTE | 2023-05-28 12:30 | IMM_PTH ---
PATIENT: MERCEDES SHEPARD LOC: EN U#:[id number] AGE/SX: 67/M ROOM: RE05/28/[address]: Dr. Jerry Leon DO : 1955 BED: DIS: 05/28/2023 SPEC #: [id number] RECD: 05/29/23 12:35 STATUS: BATOOL REQ #: [id number] JENNIFER: 05/28/23 12:[address]: Jerry Leon DEPT: IMMUNOHISTOCHEMISTRY RECD BY: Christen Avitia ENTERED: 05/29/23 12:36 SP TYPE: IMMUNO OTHR DR: Dr. Anthony Quijano MD Tissues: Stomach, NOS Procedures: H Pylori (initial) PHYSICIAN & INSTITUTION [place] [id number] SPECIMEN INFORMATION: Tissue Source: Gastric body biopsy Clinical Info: Liver cirrhosis secondary to RENDON Specimen Number: [id number] CPT code: 88749 METHODOLOGY: Deparaffinized sections of prefer/formalin-fixed tissue or PAP/DQ stained slides are incubated with monoclonal/polyclonal antibodies/oligonucleotide probes. Localization is made via biotin free immunoperoxidase method. Appropriate controls are performed and reacted as expected. Results on target cell population are indicated in the following table: RESULTS: ANTIBODY / CLONE RESULT H Pylori (polyclonal) negative These tests were developed and their performance characteristics determined by [facility]. They may not have been cleared or approved by the U.S. Food and Drug Administration. The FDA has determined that such clearance or approval is not necessary. The above immunohistochemical/dualISH markers are ordered and reviewed by the Pathologist. INTERPRETATION: Gastric body, biopsy: Negative for Helicobacter pylori organisms. LOS:anabella 05/30/2023
[2023-05-28 12:55] VITALS: BP 109/71; BP 145/86; PULSE 16; RESP 16; TEMP 36.4; O2SAT 99
--- NOTE | 2023-05-28 12:56 | OP.CCLET_ITS ---
05/28/2023 Anthony Quijano Re : Upper GI endoscopy procedure for Julia Salcido Alvinar Samm This procedure was performed on Sunday, May 28, 2023. My impressions and recommendations are as follows: Impressions : - Small (< 5 mm) esophageal varices. - Portal hypertensive gastropathy. Biopsied. - No gross lesions in the first portion of the duodenum. Recommendations : - Discharge patient to home. - Resume previous diet. - Continue present medications. - Await pathology results. My findings are described in the full procedure note, which is enclosed. If I can be of further assistance, please feel free to contact me at . Sincerely, Jerry Leon, 05/28/2023 12:55:43 PM This report has been signed electronically.
--- NOTE | 2023-05-28 12:56 | OP.EGD_ITS ---
Patient Name: Julia Salcido Procedure Date: 05/28/2023 12:34 PM Date of : 1955 Age: 67 Procedure: Upper GI endoscopy Indications: Follow-up of esophageal varices Providers: Jerry Leon DO Medicines: Monitored Anesthesia Care Patient Profile: This is a 67 year old male. Refer to note in patient chart for documentation of history and physical. Patient has symptoms of chronic dyspepsia. His most recent EGD for biopsy and EGD for treatment of bleeding was within the past year. Complications: No immediate complications. Procedure: Pre-Anesthesia Assessment: - Prior to the procedure, a History and Physical was performed, and patient medications and allergies were reviewed. The patient is competent. The risks and benefits of the procedure and the sedation options and risks were discussed with the patient. All questions were answered and informed consent was obtained. Patient identification and proposed procedure were verified by the physician in the pre-procedure area. Mental Status Examination: alert and oriented. Airway Examination: normal oropharyngeal airway and neck mobility. Respiratory Examination: clear to auscultation. CV Examination: normal. Prophylactic Antibiotics: The patient does not require prophylactic antibiotics. Prior Anticoagulants: The patient has taken no anticoagulant or antiplatelet agents. ASA Grade Assessment: III - A patient with severe systemic disease. After reviewing the risks and benefits, the patient was deemed in satisfactory condition to undergo the procedure. The anesthesia plan was to use monitored anesthesia care (MAC). Immediately prior to administration of medications, the patient was re-assessed for adequacy to receive sedatives. The heart rate, respiratory rate, oxygen saturations, blood pressure, adequacy of pulmonary ventilation, and response to care were monitored throughout the procedure. The physical status of the patient was re-assessed after the procedure. After obtaining informed consent, the endoscope was passed under direct vision. Throughout the procedure, the patient's blood pressure, pulse, and oxygen saturations were monitored continuously. The gastroscope was introduced through the mouth, and advanced to the second part of duodenum. The upper GI endoscopy was accomplished without difficulty. The patient tolerated the procedure well. Scope In: 12:46:44 PM Scope Out: 12:48:45 PM Total Procedure Duration Time 0 hours 2 minutes 1 second Findings: Small (< 5 mm) varices were found in the distal esophagus. They were 3 mm in largest diameter. Moderate portal hypertensive gastropathy was found in the stomach. Biopsies were taken with a cold forceps for histology. Verification of patient identification for the specimen was done. Estimated blood loss was minimal. No gross lesions were noted in the first portion of the duodenum. Impression: - Small (< 5 mm) esophageal varices. - Portal hypertensive gastropathy. Biopsied. - No gross lesions in the first portion of the duodenum. Recommendation: - Discharge patient to home. - Resume previous diet. - Continue present medications. - Await pathology results. Procedure Code(s): --- Professional --- 46854, Esophagogastroduodenoscopy, flexible, transoral; with biopsy, single or multiple CPT copyright 2021 [employer]. All rights reserved. The codes documented in this report are preliminary and upon spot welder line review may be revised to meet current compliance requirements. Jerry Leon DO 05/28/2023 12:55:43 PM This report has been signed electronically. Number of Addenda: 0 Note Initiated On: 05/28/2023 12:34 PM
[2023-05-28 13:00] VITALS: BP 115/75; BP 145/86; PULSE 72; RESP 16; O2SAT 98
[2023-05-28 13:05] VITALS: BP 119/78; BP 145/86; PULSE 68; RESP 16; O2SAT 99
[2023-05-28 13:10] VITALS: BP 125/78; BP 145/86; PULSE 67; RESP 16; TEMP 36.2; O2SAT 100
[2023-05-28 13:30] VITALS: BP 145/86
== END 2023-05-28 13:45 | disposition home or self-care (01) ==
LOC: EN 11:20 → AC 11:21
PROVIDERS: PCP Family Medicine; Referring Provider Family Medicine; Visit Provider Internal Medicine Gastroenterology
PROC: 0DJ08ZZ Inspection of Upper Intestinal Tract, Via Natural or Artificial Opening Endoscopic (ICD-10-PCS; CPT 43235; principal; 2023-05-28 12:25)
DX: I85.00 Esophageal varices without bleeding (principal); K76.6 Portal hypertension; K74.60 Unspecified cirrhosis of liver; E11.9 Type 2 diabetes mellitus without complications; K75.81 Nonalcoholic steatohepatitis (NASH); K29.70 Gastritis, unspecified, without bleeding; K21.9 Gastro-esophageal reflux disease without esophagitis; M10.9 Gout, unspecified; Z87.19 Personal history of other diseases of the digestive system; Z79.899 Other long term (current) drug therapy; Z87.891 Personal history of nicotine dependence
CPT/HCPCS: 43239; 88305; 88342; J7120

== ENCOUNTER → 2023-07-04 | Outpatient (CLI) | payer MEDICARE, SELFPAY ==
--- NOTE | 2023-07-04 07:52 | US_ITS ---
STUDY: ABDOMINAL ULTRASOUND - RIGHT UPPER QUADRANT REASON FOR VISIT: Male, 67 years old HCC screening -- cirrhosis TECHNIQUE: Ultrasound evaluation of the right upper quadrant was performed with real-time and static aguilar-scale imaging. TECHNICAL QUALITY: Adequate. COMPARISON: Comparison is made with prior study June 24, 2021. FINDINGS: Liver: The liver measures 15.6 cm. Lobulated contour of the liver. There is increased echogenicity consistent with fatty infiltration. The bile ducts are within normal limits. There is hepatic color flow. The direction of portal flow is hepatopetal. There is no demonstrated mass lesion. Recannulization of the umbilical vein. Gallbladder: Normal distended gallbladder. The gallbladder wall measures 3.3 mm. There is a negative sonographic Simms''s sign. There is no pericholecystic fluid. There are no gallstones. Common Bile Duct (C.B.D.): The common bile duct measures 3.4 mm. Pancreas: Normal size of the head, body and tail of the pancreas. There is normal echogenicity of the pancreas. There is no demonstrated pancreatic mass or cyst. Right Kidney: Normal size of the right kidney. The right kidney measures 10.5 cm x 5.1 cm x 5.2 cm. Normal renal cortex. The right cortex measures 2.0 cm. There is a 1.6 cm x 1.5 cm x 1.7 cm cyst in the lower pole. There is no right hydronephrosis. US/Abdomen Limited IMPRESSION: Fatty infiltration of the liver. Lobular contour of the liver. Right renal cyst. Electronically Signed: Nito Rodriguez MD at 11:19 EDT ,
== END | disposition home or self-care (01) ==
LOC: US 07:51
PROVIDERS: PCP Family Medicine; Referring Provider Internal Medicine; Visit Provider Internal Medicine
DX: K75.81 Nonalcoholic steatohepatitis (NASH) (principal); I85.00 Esophageal varices without bleeding; K74.60 Unspecified cirrhosis of liver
CPT/HCPCS: 76705

== ENCOUNTER → 2023-07-30 | Outpatient (CLI) | payer MEDICARE, SELFPAY ==
[2023-07-30 10:06] LABS: Absolute Lymphocyte Count 1.03 X10^3/uL (0.83-4.51); Absolute Neutrophil Count 1.5 X10^3/uL (2.0-7.7); Basophil# 0.05 X10^3/uL; Basophil% 1.6 % (0-1); Eosinophils% 6.6 % (0-5); Hematocrit 34.5 % (40-54); Hemoglobin 11.7 g/dL (13.0-16.5); Lymphocyte # 1.03 X10^3/ul (0.83-4.51); Lymphocyte % 33.8 % (19-41); Mean Corp Hgb Conc 33.9 g/dL (32-36); Mean Corpuscular Hgb 33.2 pg (27.0-32.0); Mean Platelet Vol. 11.6 fl (6.2-12.0); Monocyte# 0.28 X10^3/uL; Monocyte% 9.2 % (0-10); NRBC Flagged by Analyzer 0 % (0-5); Neutrophil # 1.49 X10^3/uL (2.7-7.7); Neutrophil % 48.8 % (47-70); Platelet Count 103 K/mm3 (150-450); RBC Distribution Width CV 13.7 % (11.6-14.6); Red Blood Count 3.52 M/mm3 (4.6-6.2); White Blood Count 3.1 K/mm3 (4.4-11.0)
[2023-07-30 10:18] LABS: International Normalized Ratio 1.2; Prothrombin Time (Protime)PT. 15.2 SECONDS (11.7-14.9)
[2023-07-30 11:23] LABS: ALB/GLOB Ratio 0.9 RATIO (0.9-2.4); AST(SGOT) 34 U/L (15-37); Alanine Aminotransfer ALT/SGPT 33 U/L (16-61); Albumin, Serum 3.4 g/dL (3.2-5.0); Alkaline Phosphatase 141 U/L (45-117); Anion Gap 2 (5-15); BUN 23 mg/dL (7-18); BUN/Creat Ratio 14.1 RATIO (10-20); Calcium,Total 9.1 mg/dL (8.5-10.1); Chloride 107 mmol/L (98-107); Creatinine, Serum 1.63 mg/dL (0.70-1.30); EST Glomerular Filtration Rate 45 mL/min (>60); Est Glom Filt Rate - Afr Amer 54 mL/min (>60); GGTP 77 U/L (15-85); Globulin 3.7 g/dL (2.2-4.2); Glucose 157 mg/dL (74-106); Magnesium 1.7 mg/dL (1.6-2.6); Phosphorus 3.3 mg/dL (2.5-4.9); Potassium 3.9 mmol/L (3.5-5.1); Protein, Total 7.1 g/dL (6.4-8.2); Sodium Level 138 mmol/L (136-145)
[2023-07-31 06:09] LABS: AFP, Tumor Marker 4.6 ng/mL (0.0-8.4)
== END | disposition home or self-care (01) ==
LOC: LAB 09:25
PROVIDERS: PCP Family Medicine; Referring Provider Internal Medicine; Visit Provider Internal Medicine
DX: I85.11 Secondary esophageal varices with bleeding (principal); I85.00 Esophageal varices without bleeding; K74.60 Unspecified cirrhosis of liver; K75.81 Nonalcoholic steatohepatitis (NASH)
CPT/HCPCS: 36415; 80053; 82105; 82977; 83735; 84100; 85025; 85610

== ENCOUNTER → 2023-08-07 | Outpatient (CLI) | payer MEDICARE, SELFPAY ==
[2023-08-07 10:35] LABS: Anion Gap 6 (5-15); BUN 19 mg/dL (7-18); BUN/Creat Ratio 14.7 RATIO (10-20); Calcium,Total 8.8 mg/dL (8.5-10.1); Chloride 108 mmol/L (98-107); Creatinine, Serum 1.29 mg/dL (0.70-1.30); EST Glomerular Filtration Rate 59 mL/min (>60); Est Glom Filt Rate - Afr Amer 71 mL/min (>60); Glucose 148 mg/dL (74-106); Potassium 4.3 mmol/L (3.5-5.1); Sodium Level 140 mmol/L (136-145)
== END | disposition home or self-care (01) ==
LOC: LAB 09:37
PROVIDERS: PCP Family Medicine; Referring Provider Internal Medicine; Visit Provider Internal Medicine
DX: K75.81 Nonalcoholic steatohepatitis (NASH) (principal); K74.60 Unspecified cirrhosis of liver
CPT/HCPCS: 36415; 80048

== ENCOUNTER → 2023-09-26 | Outpatient (CLI) | payer MEDICARE, SELFPAY ==
--- OUTSIDE RECORDS SUMMARY | 2023-09-26 11:35 | XMS RPT_ITS | CCD ---
Author Name Unknown Address [address] [place] [address] Organization [facility] Care Team Providers Care Solar Mechanical Engineer Name Role Phone Victorino Li Unavailable Unavailable Rings Owen Unavailable Unavailable Rings Owen Unavailable Unavailable Samaria Carbone Unavailable Unavailable Samaria Carbone Unavailable Unavailable Victorino Li Unavailable Unavailable Victorino Li Unavailable Unavailable Victorino Li Primary Care Provider [phone] PACHECO THOMAS JR Attending Unavailab le EXTEN PACHECO MARTINS Referring Unavailab VICTORINO Reis Primary Care Unavailable VICTORINO LI Admitting Unavailable VICTORINO LI Primary Care Unavailable EXTEN, PACHECO NEWMAN Attending Unavailable VICTORINO LI Primary Care Unavailable PACHECO THOMAS Attending Unavailable VICTORINO LI Primary Care Unavailable HERMES, PACHEOC NEWMAN Attending Unavailable VICTORINO LI Primary Care Unavailable Victorino Li Primary Care Provider Cal Quijano MD Primary Care Provider Cal Quijano MD Primary Care Provider Cal Quijano MD Primary Care Provider Cal Quijano MD Primary Care Provider CAL QUIJANO Attending Unavailab CAL [place]on Primary Care Unavailab CAL [place]on Attending Unavailab CAL [place]on Primary Care Unavailab CAL [place] Referring Unavailab CAL [place]on Primary Care Unavailab CAL [place]on Attending Unavailab CAL [place]on Primary Care Unavailab CAL [place]on Referring Unavailab CAL Sanon Primary Care Unavailab le Medications Current Medications Medication Drug Class(es) Dates Sig (Normalized) Sig (Original) acetaminophen 325 mg oral tablet (6 sources) take 2 tablets by mouth every six hours as needed acetaminophen (TYLENOL) 325 MG tablet Take 650 mg by mouth every 6 (six) hours as needed for pain . 0 Active atenolol 50 mg oral tablet (6 sources) beta-Adrenergic Humble take 1 tablet by mouth twice daily atenolol (TENORMIN) 50 MG tablet Take 50 mg by mouth 2 (two) times a day . 0 Active chlorthalidone 25 mg oral tablet (6 sources) Thiazide-like Diuretic take 1 tablet by mouth once daily chlorthalidone (HYGROTEN) 25 MG tablet Take 25 mg by mouth daily . 0 Active furosemide 20 mg oral tablet (14 sources) Loop Diuretic Start: 10-16-2021 End: 10-16-2023 take 0.5 tablet by mouth once daily furosemide (LASIX) 20 mg tablet Indications: Cirrhosis, nonalcoholic (HCC) Take 0.5 tablets by mouth once daily. 45 tablet 1 04/19/2023 10/16/2023 Active Completed/Discontinued Medications Medication Drug Class(es) Dates Sig (Normalized) Sig (Original) allopurinol 100 mg oral tablet (20 sources) Xanthine Oxidase Inhibitor Start: 04-19-2022 End: 03-04-2023 take 1 tablet by mouth once daily allopurinol (ZYLOPRIM) 100 mg tablet Take 1 tablet by mouth once daily. 90 tablet 2 03/04/2023 Active Problems Active Problems Problem Classification Problem Date Documented Da te Episodic/Chronic Acute posthemorrhagic anemia (2 sources) Acute posthemorrhagic anemia; Translations: [Acute posthemorrhagic anemia] Episodic Allergic reactions (1 source) Eczema; Translations: [Other specified dermatitis] Episodic Coagulation and hemorrhagic disorders (20 sources) Thrombocytopenia, unspecified; Translations: [Platelet count below reference range] Onset: 10-20-2018 01-05-2021 Chronic Deficiency and other anemia (5 sources) Pancytopenia; Translations: [Pancytopenia (HCC)] Chronic Deficiency and other anemia (4 sources) Other pancytopenia; Translations: [Other pancytopenia] Onset: 10-20-2018 Chronic Deficiency and other anemia (4 sources) Nutritional anemia, unspecified; Translations: [Nutritional anemia, unspecified] Onset: 10-20-2018 Episodic Diseases of white blood cells (3 sources) Leukopenia; Translations: [Decreased white blood cell count, unspecified] Onset: 10-20-2018 Chronic Esophageal disorders (7 sources) Esophageal varices; Translations: [Esophageal varices without bleeding] Onset: 10-19-2022 10-19-2022 Chronic Essential hypertension (16 sources) Essential hypertension; Translations: [Essential (primary) hypertension] Onset: 01-05-2021 01-05-2021 Chronic Gastrointestinal hemorrhage (4 sources) Bleeding esophageal varices; Translations: [Secondary esophageal varices with bleeding] Onset: 10-19-2022 Chronic Gout and other crystal arthropathies (17 sources) Gout; Translations: [Gout, unspecified] Onset: 01-05-2021 01-05-2021 Chronic Immunizations and screening for infectious disease (3 sources) Vaccination needed; Translations: [Encounter for immunization] Episodic Other diseases of veins and lymphatics (14 sources) Lymphedema of bilateral lower limbs; Translations: [Lymphedema, not elsewhere classified] Onset: 11-25-2020 11-25-2020 Chronic Other endocrine disorders (2 sources) Hypoglycemia; Translations: [Hypoglycemia, unspecified] Chronic Other endocrine disorders (1 source) Hypoglycemia, unspecified; Translations: [Hypoglycemia] Onset: 12-03-2022 Chronic Other hematologic conditions (13 sources) Macrocytosis; Translations: [Other specified diseases of blood and blood-forming organs] Onset: 01-18-2021 01-18-2021 Chronic Other liver diseases (18 sources) Cirrhosis of liver; Translations: [Other cirrhosis of liver] 07-03-2021 Chronic Other liver diseases (5 sources) Unspecified cirrhosis of liver; Translations: [Unspecified cirrhosis of liver] Onset: 11-12-2018 Chronic Other liver diseases (1 source) Cirrhosis - non-alcoholic; Translations: [Unspecified cirrhosis of liver] 04-19-2023 Chronic Other liver diseases (1 source) Other cirrhosis of liver; Translations: [Other cirrhosis of liver (HCC)] Onset: 07-03-2021 Chronic Other male genital disorders (7 sources) Other male erectile dysfunction; Translations: [Impotence of organic origin] Onset: 10-19-2022 10-19-2022 Chronic Other nutritional; endocrine; and metabolic disorders (11 sources) Obesity; Translations: [Other obesity due to excess calories] 01-05-2021 Chronic Other nutritional; endocrine; and metabolic disorders (13 sources) Iron overload; Translations: [Other disorders of iron metabolism] Onset: 01-18-2021 01-18-2021 Chronic Other nutritional; endocrine; and metabolic disorders (2 sources) Obesity caused by energy imbalance; Translations: [Other obesity due to excess calories] 01-05-2021 Chronic Other nutritional; endocrine; and metabolic disorders (2 sources) Hyperammonemia; Translations: [Disorder of urea cycle metabolism, unspecified] Onset: 04-24-2023 04-24-2023 Chronic Other nutritional; endocrine; and metabolic disorders (9 sources) Body mass index 25-29 - overweight; Translations: [Overweight] Onset: 10-20-2022 Episodic Other screening for suspected conditions (not mental disorders or infectious disease) (6 sources) Platelet count below reference range; Translations: [Measurement finding above reference range] Episodic Past or Other Problems Problem Classification Problem Date Documented Da te Episodic/Chronic Deficiency and other anemia (4 sources) Macrocytic anemia; Translations: [Macrocytic anemia] Episodic Deficiency and other anemia (13 sources) Anemia; Translations: [Anemia, unspecified] Onset: 01-18-2021 01-18-2021 Episodic Diabetes mellitus without complication (17 sources) Prediabetes; Translations: [Prediabetes] Onset: 01-05-2021 01-05-2021 Episodic Other circulatory disease (13 sources) Poor peripheral circulation; Translations: [Other specified symptoms and signs involving the circulatory and respiratory systems] Onset: 11-25-2020 11-25-2020 Episodic Other nutritional; endocrine; and metabolic disorders (1 source) Overweight; Translations: [Overweight (BMI 25.0-29.9)] Onset: 10-20-2022 Episodic Results Test Name Value Interpretation Reference Range Facil ity Vital Signs Date Time Vital Sign Value Performing Clinician Trent carter 04-19-2023 09:03-0400 Body weight 85.28 kg Cal Quijano MD Work Phone: [facility] 04-19-2023 09:03-0400 Diastolic blood pressure 64 mm[Hg] Cal Quijano MD Work Phone: [facility] 04-19-2023 09:03-0400 Heart rate 59 /min Cal Quijano MD Work Phone: [facility] 04-19-2023 09:03-0400 Respiratory rate 16 /min Cal Quijano MD Work Phone: [facility] 04-19-2023 09:03-0400 SaO2% (BldA) [Mass fraction] 99 % Cal Quijano MD Work Phone: [facility] 04-19-2023 09:03-0400 Systolic blood pressure 118 mm[Hg] Cal Quijano MD Work Phone: [facility] 12-03-2022 16:17-0400 Body weight 89.18 kg Cal Quijano MD Work Phone: [facility] 12-03-2022 16:17-0400 Diastolic blood pressure 68 mm[Hg] Cal Quijano MD Work Phone: [facility] 12-03-2022 16:17-0400 Heart rate 69 /min Cal Quijano MD Work Phone: [facility] 12-03-2022 16:17-0400 Respiratory rate 16 /min Cal Quijano MD Work Phone: [facility] 12-03-2022 16:17-0400 SaO2% (BldA) [Mass fraction] 98 % Cal Quijano MD Work Phone: [facility] 12-03-2022 16:17-0400 Systolic blood pressure 122 mm[Hg] Cal Quijano MD Work Phone: [facility] 10-19-2022 08:45-0500 Body weight 86.55 kg Cal Quijano MD Work Phone: [facility] 10-19-2022 08:45-0500 Diastolic blood pressure 68 mm[Hg] Cal Quijano MD Work Phone: [facility] 10-19-2022 08:45-0500 Heart rate 69 /min Cal Quijano MD Work Phone: [facility] 10-19-2022 08:45-0500 Respiratory rate 16 /min Cal Quijano MD Work Phone: [facility] 10-19-2022 08:45-0500 SaO2% (BldA) [Mass fraction] 98 % Cal Quijano MD Work Phone: [facility] 10-19-2022 08:45-0500 Systolic blood pressure 110 mm[Hg] Cla Quijano MD Work Phone: [facility] 12-03-2018 09:21-0400 BMI (Body Mass Index) 43.61 kg/m2 [facility] 12-03-2018 09:21-0400 Body Temperature 98.71 [degF] [facility] 12-03-2018 09:21-0400 Body weight 104.69 kg [facility] 12-03-2018 09:21-0400 BP Diastolic 90 mm[Hg] [facility] 12-03-2018 09:21-0400 BP Systolic 153 mm[Hg] [facility] 12-03-2018 09:21-0400 Height 154.9 cm [facility] 12-03-2018 09:21-0400 Pulse (Heart Rate) 77 /min [facility] 12-03-2018 09:21-0400 Pulse Oximetry 98 % [facility] 11-19-2018 10:33-0400 Pulse (Heart Rate) 72 /min [facility] 11-19-2018 10:33-0400 Pulse Oximetry 98 % [facility] 11-19-2018 10:11-0400 BP Diastolic 70 mm[Hg] [facility] 11-19-2018 10:11-0400 BP Systolic 118 mm[Hg] [facility] 11-19-2018 09:26-0400 Respiratory Rate 14 /min [facility] 11-19-2018 07:54-0400 BMI (Body Mass Index) 32.78 kg/m2 [facility] 11-19-2018 07:54-0400 Weight 106.59 kg [facility] 11-19-2018 07:21-0400 Body Temperature 98.1 [degF] [facility] 11-14-2018 11:39-0400 BMI (Body Mass Index) 33.25 kg/m2 [facility] 11-14-2018 11:39-0400 Body Temperature 98.8 [degF] [facility] 11-14-2018 11:39-0400 BP Diastolic 85 mm[Hg] [facility] 11-14-2018 11:39-0400 BP Systolic 149 mm[Hg] [facility] 11-14-2018 11:39-0400 Height 180.3 cm [facility] 11-14-2018 11:39-0400 Pulse (Heart Rate) 80 /min [facility] 11-14-2018 11:39-0400 Pulse Oximetry 97 % [facility] 11-14-2018 11:39-0400 Weight 108.14 kg [facility] 10-20-2018 16:14-0500 BMI (Body Mass Index) 33.17 kg/m2 [facility] 10-20-2018 16:14-0500 Body Temperature 98.71 [degF] [facility] 10-20-2018 16:14-0500 BP Diastolic 78 mm[Hg] [facility] 10-20-2018 16:14-0500 BP Systolic 138 mm[Hg] [facility] 10-20-2018 16:14-0500 Height 180.3 cm [facility] 10-20-2018 16:14-0500 Pulse (Heart Rate) 82 /min [facility] 10-20-2018 16:14-0500 Pulse Oximetry 97 % [facility] 10-20-2018 16:14-0500 Weight 107.86 kg [facility] Encounters Encounter Date Encounter Type Care Provider Facility Start: 04-19-2023 End: 04-20-2023 ambulatory CAL QUIJANO Facility:[facility] Start: 04-19-2023 End: 04-19-2023 Patient encounter procedure Cal Quijano MD Work Phone: [facility] Procedures Date Procedure Procedure Detail Performing Clinician Start: 03-15-2021 Colonoscopy Anthony Quijano MD Work Phone: Start: 01-05-2021 Adult depression scr eening assessment Cal Quijano MD Work Phone: Start: 11-19-2018 Complete blood count with white cell differential, automated Amy Brown Work Phone: Start: 11-19-2018 Complete blood count with white cell differential, manual Amy Brown Work Phone: Start: 11-19-2018 Red blood cell morphology Amy Brown Work Phone: Start: 11-19-2018 Reticulocytes panel - Blood Amy Brown Work Phone: Start: 11-19-2018 Glucose [Mass/volume ] in Blood Victorino Li Work Phone: Start: 11-12-2018 Ultrasonography of abdomen Pacheco Thomas Work Phone: Plan of Treatment Date Care Activity Detail Author Start: 03-15-2031 Colonoscopy COLONOSCOPY [facility] Start: 03-15-2031 COLORECTAL CANCER SCREENING COLORECTAL CANCER SCREENING [facility] Start: 10-19-2027 LIPID SCREEN LIPID SCREEN [facility] Start: 01-05-2026 PROSTATE CANCER SCRE ENING DISCUSSION PROSTATE CANCER SCREENING DISCUSSION [facility] Start: 12-03-2025 DIABETES SCREEN DIABETES SCREEN [facility] Start: 11-09-2025 LIPID SCREEN LIPID SCREEN [facility] Start: 10-19-2025 DIABETES SCREEN DIABETES SCREEN [facility] Start: 04-18-2025 DIABETES SCREEN DIABETES SCREEN [facility] Start: 06-21-2024 DIABETES SCREEN DIABETES SCREEN [facility] Start: 04-19-2024 ANNUAL PCP TEAM REED WORKER PINA DISEASE VISIT ANNUAL PCP TEAM CHRONIC DISEASE VISIT [facility] Start: 04-19-2024 BP CONTROLLED (<130/80) BP CONTROLLE D (<130/80) [facility] Start: 04-19-2024 COVID-19 VACCINE (3 - Moderna series) COVID-19 VACCINE (3 - Moderna series) [facility] Immunizations Immunization Date Immunization Notes Care Provider Fa awaty 01-08-2022 hepatitis A and hepatitis B vaccine Mi Nurse Work Phone: [facility] Work Phone: 10-16-2021 pneumococcal polysaccharide vaccine, 23 valent Cal Quijano MD Work Phone: [facility] 08-10-2021 hepatitis A and hepatitis B vaccine Cal Quijano MD Work Phone: [facility] Work Phone: 08-10-2021 hepatitis B vaccine, unspecified formulation Cal Quijano MD Work Phone: [facility] 07-10-2021 hepatitis A and hepatitis B vaccine Cal Quijano MD Work Phone: [facility] 05-12-2021 influenza, seasonal, injectable, preservative free Cal Quijano MD Work Phone: [facility] Work Phone: 09-19-2020 pneumococcal conjuga te vaccine, 13 valent Cal Quijano MD Work Phone: [facility] Payers Date Payer Category Payer Medicare MEDICARE MEDICAR E A AND B [id number] 2020-Present [phone] [place] [address] Medicare [id number] 2020 Medicare MEDICARE MEDICAR E A AND B [id number] 2020-Present [phone] [place] [address] Medicare [id number] 2020 Medicare [id number] 2018 Unknown MMO MED M[employer] S UPERMED PPO xxxxxxxxxxxx 2018-Present [id number] 2018 Unknown [id number] 2018 Unknown M[employer] MED M[employer] S UPERMED PPO [id number] 2018-Present [id number] 2017 Unknown 1955 Unknown [id number] 1955 Unknown [id number] 1955 Unknown [id number] 1955 Unknown [id number] 1955 Unknown [id number] Social History Date Type Detail Facility Start: 10-20-2018 End: 04-19-2023 Tobacco smoking status NHIS Former smoker [facility] Work Phone: End: 10-20-2013 History of tobacco use Current smoker [facility] Start: 10-20-2018 Tobacco Comment 5 CIGARS PER D AY HASNT SMOKED IN 5 YRS [facility] Start: 10-20-2018 Alcohol Comment SINCE AGE OF 20 [facility] Start: 1955 Sex Assigned At Not on file [facility] Start: 12-24-2018 End: 04-19-2023 Tobacco use and exposure Never used [facility] Start: 12-24-2018 Alcohol intake Ex-drinker (finding) [facility] End: 01-05-2001 History of tobacco use Cigar Smoker [facility] Work Phone: Start: 01-31-2021 End: 04-19-2023 Alcohol intake Current drinker of alcohol (finding) [facility] Start: 11-09-2020 End: 01-31-2021 Alcohol intake [facility] Work Phone: Start: 01-05-2021 History SDOH Alcohol Comment 2-3 beers per night [facility] Start: 09-16-2021 End: 04-18-2022 Exposure to SARS-CoV-2 (event) Not sure [facility] Start: 03-15-2021 History SDOH Alcohol Comment 2-3 beers per night (quit approx January 2021) [facility] Start: 11-09-2020 End: 04-19-2023 Tobacco use panel [facility] Work Phone: Adult Depression Screening Assessment 0 [facility] Work Phone: Medical Equipment Procedure Code Equipment Code Equipment Origin al Text Equipment Identifier Dates Test blood sugar (s) 1 times daily. Dx: Type 2 DM - Controlled E11.9 Insulin: No Start: 06-21-2021 Clinical Notes 02-24-2021 to 04-19-2023 Cal Quijano MD - 04/19/2023 8:55 AM EDTTelephone Encounter - Renatatimi De La O LPN - 03/04/2023 9:19 AM EDTTelephone Encounter - Christiana Benavides MA - 02/04/2023 10:48 AM EDT Note Date & Type Note Facility 04-19-2023 Note HNO ID: [id number] Author: Cal Quijano MD Service: ? Author Type: Physician Type: Progress Notes Filed: 04/24/2023 9:17 AM Note Text: Chief Complaint Patient presents with: Follow Up: 6 month HPI Julia Salcido is a 67 year old male who presents here today for Above Complaints.. has been in good health. No complaints. No falls since last OV. Cirrhosis 2/[address] Leon's office. Reviewed OV from January recommending abstinence from alcohol and EGD every 6 months for history of esophageal varices. Scheduled for EGD in July. Abstaining from alcohol. Taking PPI, lactulose and Xifaxan as recommended. Admits to black stools from iron supplement. Denies hematochezia, lightheadedness, SOB. BP well controlled on current regimen. Needs refill on lisinopril. No gout flares on allopurinol. Past medical history, appointments, medications, allergies reviewed. 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 Lymphedema Macrocytic anemia Normal bone marrow biopsy in 2019 RENDON (nonalcoholic steatohepatitis) Other ascites Other cirrhosis of liver (HCC) 2/2 RENDON-Dr. Friend Other male erectile dysfunction Overweight (BMI 25.0-29.9) Prediabetes Pseudogout Thrombocytopenia (HCC) Normal bone marrow biopsy in 2019 Previous Surgical History PAST SURGICAL HISTORY Procedure Laterality Date COLONOSCOPY Multiple normal colonoscopies COLONOSCOPY FLX DX W/COLLJ SPEC WHEN PFRMD 03/15/2021 ESOPHAGOGASTRODUODENOSCOPY TRANSORAL DIAGNOSTIC 03/15/2021 REPAIR ROTATOR CUFF,ACUTE Left 1995 VASECTOMY 1980's Family History FAMILY HISTORY Problem Relation Age of Onset Breast Cancer Mother Diabetes Father Hypertension Brother No Known Problems Son No Known Problems Son No Known Problems Daughter Patient Allergies ALLERGIES No Known Allergies Current Medications Current Outpatient Medications on File Prior to Visit Medication Sig pantoprazole DR (PROTONIX) 40 mg tablet Take 1 tablet by mouth twice daily. allopurinol (ZYLOPRIM) 100 mg tablet Take 1 tablet by mouth once daily. ferrous sulfate (FEROSUL) 325 mg (65 mg iron) tablet Take 1 tablet by mouth twice daily with meals. lactulose (DUPHALAC, CONSTULOSE) 10 g/15 mL soln Take 20 g by mouth three times daily. furosemide (LASIX) 20 mg tablet Take 0.5 tablets by mouth once daily. losartan (COZAAR) 100 mg tablet Take 1 tablet by mouth once daily. rifAXIMin (XIFAXAN) 550 mg tablet Take 1 tablet by mouth twice daily. nadolol (CORGARD) 20 mg tablet Take 20 mg by mouth once daily. blood sugar diagnostic (BLOOD GLUCOSE TEST) test strip Test blood sugar(s) 1 times daily. Dx: Type 2 DM - Controlled E11.9 Insulin: No Lancets lancets Test blood sugar(s) 1 times daily. Dx: Type 2 DM - Controlled E11.9 Insulin: No polyethylene glycol 3350 (MIRALAX, GLYCOLAX) 17 gram/dose powder Use as directed for Miralax / Gatorade Bowel Prep Kit Bisacodyl (DULCOLAX) 5 mg tab Use as directed for Miralax / Gatorade Bowel Prep Kit No current facility-administered medications on file prior to visit. Social History Social History Tobacco Use Smoking status: Former Types: Cigars Quit date: 01/05/2001 Years since quittin.2 Smokeless tobacco: Never Substance Use Topics Alcohol use: Yes Alcohol/week: 20.0 standard drinks of alcohol Types: 20 Cans of Beer (12oz) per week Comment: 2-3 beers per night (quit approx January 2021) Drug use: Never Review of Symptoms REVIEW OF SYSTEMS GENERAL: No weight loss, malaise or fevers RESPIRATORY: Negative for cough, hemoptysis, wheezing, COPD, dyspnea or shortness of breath CARDIOVASCULAR: Negative for chest pain, leg swelling, hypertension, CHF or palpitations GI: No nausea, vomiting, or diarrhea SKIN: Negative for lesions, rash, and itching EXAM: BP 118/64 Pulse (!) 59 Resp 16 Wt 85.3 kg (188 lb) SpO2 99% BMI 26.98 kg/m? General Appearance: Well appearing, alert, in no acute distress, well-hydrated, well nourished.. Skin: Skin color, texture, turgor normal, no suspicious rashes or lesions. Lungs: Lungs clear to auscultation. No wheezing, rhonchi, rales.. Heart: RRR without murmur, gallop, or rubs. No ectopy. Abdomen: Normal abdominal exam, Abdomen soft, non-tender. Bowel sounds normal. No masses, organomegaly. Extremities: No deformities, edema, skin discoloration, clubbing or cyanosis. Good capillary refill. . Health Maintenance List COVID-19 VACCINE(3 - Moderna series) due on 09/12/2021 ADVANCE DIRECTIVE DISCUSSION Never done DTAP,TDAP,TD(1 - Tdap) due on 10/19/2023 SHINGRIX VACCINE(1 of 2) due on 10/19/2023 INFLUENZA(1) due on 05/03/2023 ANNUAL PCP T (more content not included)... [facility] 04-19-2023 History of Presen t illness Narrative Chief Complaint Patient presents with: Follow Up: 6 month HPI Julia Salcido is a 67 year old male who presents here today for Above Complaints.. has been in good health. No complaints. No falls since last OV. Cirrhosis 2/[address] [address] Leon's office. Reviewed OV from January recommending abstinence from alcohol and EGD every 6 months for history of esophageal varices. Scheduled for EGD in July. Abstaining from alcohol. Taking PPI, lactulose and Xifaxan as recommended. Admits to black stools from iron supplement. Denies hematochezia, lightheadedness, SOB. BP well controlled on current regimen. Needs refill on lisinopril. No gout flares on allopurinol. Past medical history, appointments, medications, allergies reviewed. 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 Lymphedema Macrocytic anemia Normal bone marrow biopsy in 2018 RENDON (nonalcoholic steatohepatitis) Other ascites Other cirrhosis of liver (HCC) 2/2 JUSTICE- Friend Other male erectile dysfunction Overweight (BMI 25.0-29.9) Prediabetes Pseudogout Thrombocytopenia (HCC) Normal bone marrow biopsy in 2018 Previous Surgical History PAST SURGICAL HISTORY Procedure Laterality Date COLONOSCOPY Multiple normal colonoscopies COLONOSCOPY FLX DX W/COLLJ SPEC WHEN PFRMD 03/15/2021 ESOPHAGOGASTRODUODENOSCOPY TRANSORAL DIAGNOSTIC 03/15/2021 REPAIR ROTATOR CUFF,ACUTE Left 1995 VASECTOMY Family History FAMILY HISTORY Problem Relation Age of Onset Breast Cancer Mother Diabetes Father Hypertension Brother No Known Problems Son No Known Problems Son No Known Problems Daughter Patient Allergies ALLERGIES No Known Allergies Current Medications Current Outpatient Medications on File Prior to Visit Medication Sig pantoprazole DR (PROTONIX) 40 mg tablet Take 1 tablet by mouth twice daily. allopurinol (ZYLOPRIM) 100 mg tablet Take 1 tablet by mouth once daily. ferrous sulfate (FEROSUL) 325 mg (65 mg iron) tablet Take 1 tablet by mouth twice daily with meals. lactulose (DUPHALAC, CONSTULOSE) 10 g/15 mL soln Take 20 g by mouth three times daily. furosemide (LASIX) 20 mg tablet Take 0.5 tablets by mouth once daily. losartan (COZAAR) 100 mg tablet Take 1 tablet by mouth once daily. rifAXIMin (XIFAXAN) 550 mg tablet Take 1 tablet by mouth twice daily. nadolol (CORGARD) 20 mg tablet Take 20 mg by mouth once daily. blood sugar diagnostic (BLOOD GLUCOSE TEST) test strip Test blood sugar(s) 1 times daily. Dx: Type 2 DM - Controlled E11.9 Insulin: No Lancets lancets Test blood sugar(s) 1 times daily. Dx: Type 2 DM - Controlled E11.9 Insulin: No polyethylene glycol 3350 (MIRALAX, GLYCOLAX) 17 gram/dose powder Use as directed for Miralax / Gatorade Bowel Prep Kit Bisacodyl (DULCOLAX) 5 mg tab Use as directed for Miralax / Gatorade Bowel Prep Kit No current facility-administered medications on file prior to visit. Social History Social History Tobacco Use Smoking status: Former Types: Cigars Quit date: 01/05/2001 Years since quittin.2 Smokeless tobacco: Never Substance Use Topics Alcohol use: Yes Alcohol/week: 20.0 standard drinks of alcohol Types: 20 Cans of Beer (12oz) per week Comment: 2-3 beers per night (quit approx January 2021) Drug use: Never Review of Symptoms REVIEW OF SYSTEMS GENERAL: No weight loss, malaise or fevers RESPIRATORY: Negative for cough, hemoptysis, wheezing, COPD, dyspnea or shortness of breath CARDIOVASCULAR: Negative for chest pain, leg swelling, hypertension, CHF or palpitations GI: No nausea, vomiting, or diarrhea SKIN: Negative for lesions, rash, and itching EXAM: BP 118/64 Pulse (!) 59 Resp 16 Wt 85.3 kg (188 lb) SpO2 99% BMI 26.98 kg/m General Appearance: Well appearing, alert, in no acute distress, well-hydrated, well nourished.. Skin: Skin color, texture, turgor normal, no suspicious rashes or lesions. Lungs: Lungs clear to auscultation. No wheezing, rhonchi, rales.. Heart: RRR without murmur, gallop, or rubs. No ectopy. Abdomen: Normal abdominal exam, Abdomen soft, non-tender. Bowel sounds normal. No masses, organomegaly. Extremities: No deformities, edema, skin discoloration, clubbing or cyanosis. Good capillary refill. . Health Maintenance List COVID-19 VACCINE(3 - Moderna series) due on 09/12/2021 ADVANCE DIRECTIVE DISCUSSION Never done DTAP,TDAP,TD(1 - Tdap) due on 10/19/2023 SHINGRIX VACCINE(1 of 2) due on 10/19/2023 INFLUENZA(1) due on 05/03/2023 ANNUAL PCP TEAM CHRONIC DISEASE VISIT due on 12/04/2023 BP CONTROLLED (<130/80) due on 12/04/2023 DIABETES SCREEN due on 12/03/2025 PROSTATE CANCER SCREENING DISCUSSION due on 01/05/2026 LIPID SCREEN due on 10/19/2027 COLORECTAL CANCER SCREENING due on 03/15/2031 HEPATITIS B Completed HEPATITIS A Completed ABDOMINAL AORTIC ANEURYSM SCREENING Completed DEPRESSION ASSESSMENT Completed HEPATITIS C SCREENING Completed PNEUMOCOCCAL: 65+ Completed Data reviewed Component Latest Ref Rng & Units 10/19/2022 12/03/2022 Protein, Total 6.3 - 8.0 g/dL 7.2 Albumin 3.9 - 4.9 g/dL 3.7 (L) Calcium 8.5 - 10.2 mg/dL 9.2 Bilirubin, Total 0.2 - 1.3 mg/dL 1.1 Alkaline Phosphatase 38 - 113 U/L 142 (H) AST 14 - 40 U/L 57 (H) ALT 10 - 54 U/L 38 Glucose 74 - 99 mg/dL 101 (H) BUN 9 - 24 mg/dL 13 Creatinine 0.73 - 1.22 mg/dL 1.21 Sodium 136 - 144 mmol/L 138 Potassium 3.7 - 5.1 mmol/L 3.9 Chloride 97 - 105 mmol/L 105 CO2 22 - 30 mmol/L 24 Anion Gap 9 - 18 mmol/L 9 eGFR >=60 mL/min/1.73m 66 Total Cholesterol, Nonfasting <200 mg/dL 156 Triglycerides, Nonfasting <150 mg/dL 86 HDL Cholesterol, Nonfasting >39 mg/dL 74 LDL Cholesterol, Nonfasting <100 mg/dL 65 Non HDL Cholesterol, Nonfasting <130 mg/dL 82 VLDL Cholesterol, Nonfasting <30 mg/dL 17 Total Chol/HDL Ratio, Nonfasting <5.10 mg/dL 2.11 LDL/HDL Ratio, Nonfasting <2.54 mg/dL 0.88 Hemoglobin A1C 4.3 - 5.6 % 4.8 Estimated Average Glucose mg/dL 91 Uric Acid 4.0 - 8.1 mg/dL 3.8 (L) Insulin 3.0 - 25.0 mU/L 18.7 C-Peptide 0.81 - 3.85 ng/mL 5.00 (H) Proinsulin Intact Blood <=8.0 pmol/L 7.2 ASSESSMENT/PLAN: 1. Essential hypertension - ICD9: 401.9, ICD10: I10 (primary diagnosis) - Controlled - Continue current medications - Recommend home blood pressure monitoring, to bring results to next visit - Encouraged sodium restriction, DASH or Mediterranean diet - Recommend regular aerobic exercise - LOSARTAN 100 MG TABLET 2. Prediabetes - ICD9: 790.29, ICD10: R73.03 Last A1c in normal range at 5.1 in December. Recheck at future OV. 3. Overweight (BMI 25.0-29.9) - ICD9: 278.02, ICD10: E66.3 Weight decreasing - Behavioral intervention 4. Cirrhosis, nonalcoholic (HCC) - ICD9: 571.5, ICD10: K74.60 Patient continues to abstain from alcohol and is working on weight loss with improved diet and exercise. F/u with EGD for history of esophageal varices per Dr. Leon. Continue Xifaxan, lactulose, and PPI. - FUROSEMIDE 20 MG TABLET 5. Secondary esophageal varices with bleeding (HCC) - ICD9: 456.20, ICD10: I85.11 See above. 6. Anemia due to acute blood loss - ICD9: 285.1, ICD10: D62 Improving with HGB up to 12.6 in January. Continue iron supplement. 7. Thrombocytopenia (HCC) - ICD9: 287.5, ICD10: D69.6 Stable and 2/2 cirrhosis. Will monitor with GI. 8. Chronic gout without tophus, unspecified cause, unspecified site - ICD9: 274.02, ICD10: M1A.9XX0 Controlled on allopurinol. 9. Hyperammonemia (HCC) - ICD9: 270.6, ICD10: E72.20 Continue lactulose to achieve loose stools 2-3 times per day. F/u with GI for repeat testing. Cal Quijano MD documented in this encounter [facility] 03-04-2023 Miscellaneous Notes Pt. would like Nadolol refilled. Med is on his history not refilled by [facility]. Please advise. Patient has been identified by name and date of : Patient phones for refill(s): Requested Prescriptions Pending Prescriptions Disp Refills pantoprazole DR (PROTONIX) 40 mg tablet 90 tablet 1 Sig: Take 1 tablet by mouth twice daily. allopurinol (ZYLOPRIM) 100 mg tablet 90 tablet 2 Sig: Take 1 tablet by mouth once daily. ferrous sulfate (FEROSUL) 325 mg (65 mg iron) tablet 180 tablet 1 Sig: Take 1 tablet by mouth twice daily with meals. Date of last office visit in primary care: 12/03/22 Last 2 Encounter Wt Readings: Date: Wt: 12/03/2022 89.2 kg (196 lb 9.6 oz) 10/19/2022 86.5 kg (190 lb 12.8 oz) Previous labs/tests for medication: Not applicable Please advise. Thank you. Renata De La O LPN documented in this encounter [facility] 02-04-2023 Miscellaneous Notes HER[facility] 12/03/22 NOV 04/19/23 Christiana Benavides MA Patient wants to know if this can be sent darline. Said he is picking up other scripts tomorrow afternoon and would like to get this at the same time. Patient has been identified by name and date of : Yes Requested Prescriptions Pending Prescriptions Disp Refills allopurinol (ZYLOPRIM) 100 mg tablet Sig: Take 1 tablet by mouth once daily. RX INSTRUCTIONS: Patient aware RX will be sent to pharmacy. No need to notify patient. Renata Diego documented in this encounter [facility] 12-10-2022 Miscellaneous Notes Demographics, referral, office note and recent labs faxed to [phone]. Mojgan Franklin LPN Patient would like to be referred to Dr Julissa Coulter [facility] in [place]. Please fax [employer] and order to [phone] documented in this encounter [facility] 12-07-2022 Miscellaneous Notes Pt set up appointment for Urszula in December. He is going to call places in [place] and see if he can get an appointment sooner. He will call back if he wants us to send the referral somewhere else. Phoned patient and updated him with results and recommendations. Patient advised to call into scheduling once he wasn't driving and they can assist him with setting up appt with endocrinology. Patient voiced understanding. Patient's non fasting glucose level was normal at 101. His insulin and proinsulin levels are normal, but his C peptide level is high which could indicate his body is making too much insulin and could contribute to low sugar levels. Would recommend referral to endocrinology to follow up on this testing and consider repeat with fasting or 72 hour fast. documented in this encounter [facility] 12-03-2022 Note HNO ID: [id number] Author: Cal Quijano MD Service: ? Author Type: Physician Type: Progress Notes Filed: 12/04/2022 8:34 AM Note Text: Chief Complaint Patient presents with: Low Blood Sugar: Patient reports BS 130's in am but dropping a couple x to 64 and 57 at lunch time. NORMA Salcido is a 67 year old male who presents here today for Above Complaints.. Patient states in the last week or so he has had at least 2 episodes of low sugar. Before lunch or around noon he will start to feel hot and sweaty. told him he looked pale. Sugars have been 64 and 57 when he checks it. Will eat lunch and symptoms resolve. No change in his diet over the last couple of weeks. Eats breakfast around 7-7:30. This morning was frozen waffles. Can be eggs, pancakes, breakfast bowl. He notes that he has been more busy in the last week working in his attic or working in the yard for a couple hours. Not taking any medications that would lower his sugars. Not taking anyting other than what is prescribed. When he checks his fasting sugar, it is usually in the 130's. Past medical history, appointments, medications, allergies reviewed. 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 Lymphedema Macrocytic anemia Normal bone marrow biopsy in 2018 RENDON (nonalcoholic steatohepatitis) Other ascites Other cirrhosis of liver (HCC) 2/2 RENDON- Friend Other male erectile dysfunction Overweight (BMI 25.0-29.9) Prediabetes Pseudogout Thrombocytopenia (HCC) Normal bone marrow biopsy in 2019 Previous Surgical History PAST SURGICAL HISTORY Procedure Laterality Date COLONOSCOPY Multiple normal colonoscopies COLONOSCOPY FLX DX W/COLLJ SPEC WHEN PFRMD 03/15/2021 ESOPHAGOGASTRODUODENOSCOPY TRANSORAL DIAGNOSTIC 03/15/2021 REPAIR ROTATOR CUFF,ACUTE Left 1995 VASECTOMY Family History FAMILY HISTORY Problem Relation Age of Onset Breast Cancer Mother Diabetes Father Hypertension Brother No Known Problems Son No Known Problems Son No Known Problems Daughter Patient Allergies ALLERGIES No Known Allergies Current Medications Current Outpatient Medications on File Prior to Visit Medication Sig lactulose (DUPHALAC, CONSTULOSE) 10 g/15 mL soln Take 20 g by mouth three times daily. allopurinol (ZYLOPRIM) 100 mg tablet Take 100 mg by mouth once daily. furosemide (LASIX) 20 mg tablet Take 0.5 tablets by mouth once daily. losartan (COZAAR) 100 mg tablet Take 1 tablet by mouth once daily. rifAXIMin (XIFAXAN) 550 mg tablet Take 1 tablet by mouth twice daily. ferrous sulfate (FEROSUL) 325 mg (65 mg iron) tablet Take 1 tablet by mouth twice daily with meals. pantoprazole DR (PROTONIX) 40 mg tablet Take 1 tablet by mouth twice daily. nadolol (CORGARD) 20 mg tablet Take 20 mg by mouth once daily. blood sugar diagnostic (BLOOD GLUCOSE TEST) test strip Test blood sugar(s) 1 times daily. Dx: Type 2 DM - Controlled E11.9 Insulin: No Lancets lancets Test blood sugar(s) 1 times daily. Dx: Type 2 DM - Controlled E11.9 Insulin: No polyethylene glycol 3350 (MIRALAX, GLYCOLAX) 17 gram/dose powder Use as directed for Miralax / Gatorade Bowel Prep Kit Bisacodyl (DULCOLAX) 5 mg tab Use as directed for Miralax / Gatorade Bowel Prep Kit No current facility-administered medications on file prior to visit. Social History Social History Tobacco Use Smoking status: Former Types: Cigars Quit date: 01/05/2001 Years since quittin.9 Smokeless tobacco: Never Substance Use Topics Alcohol use: Yes Alcohol/week: 20.0 standard drinks Types: 20 Cans of Beer (12oz) per week Comment: 2-3 beers per night (quit approx January 2021) Drug use: Never Review of Symptoms REVIEW OF SYSTEMS See HPI EXAM: BP 122/68 Pulse 69 Resp 16 Wt 89.2 kg (196 lb 9.6 oz) SpO2 98% BMI 28.21 kg/m? General Appearance: Well appearing, alert, in no acute distress, well-hydrated, well nourished.. Skin: Skin color, texture, turgor normal, no suspicious rashes or lesions. Lungs: Lungs clear to auscultation. No wheezing, rhonchi, rales.. Heart: RRR without murmur, gallop, or rubs. No ectopy. Abdomen: Normal abdominal exam, Abdomen soft, non-tender. Bowel sounds normal. No masses, organomegaly. Extremities: No deformities, edema, skin discoloration, clubbing or cyanosis. Good capillary refill. . Health Maintenance List ADVANCE DIRECTIVE DISCUSSION Never done COVID-19 VACCINE(3 - Booster for Moderna series) due on 04/18/2023 DTAP,TDAP,TD(1 - Tdap) due on 10/19/2023 SHINGRIX VACCINE(1 of 2) due on 10/19/2023 INFLUENZA(Season Ended) due on 05/03/2023 ANNUAL PCP TEAM CHRONIC DISEASE VISIT due on (more content not included)... [facility] 12-03-2022 History of Presen t illness Narrative Chief Complaint Patient presents with: Low Blood Sugar: Patient reports BS 130's in am but dropping a couple x to 64 and 57 at lunch time. NORMA Salcido is a 67 year old male who presents here today for Above Complaints.. Patient states in the last week or so he has had at least 2 episodes of low sugar. Before lunch or around noon he will start to feel hot and sweaty. told him he looked pale. Sugars have been 64 and 57 when he checks it. Will eat lunch and symptoms resolve. No change in his diet over the last couple of weeks. Eats breakfast around 7-7:30. This morning was frozen waffles. Can be eggs, pancakes, breakfast bowl. He notes that he has been more busy in the last week working in his attic or working in the yard for a couple hours. Not taking any medications that would lower his sugars. Not taking anyting other than what is prescribed. When he checks his fasting sugar, it is usually in the 130's. Past medical history, appointments, medications, allergies reviewed. 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 Friend Other male erectile dysfunction Overweight (BMI 25.0-29.9) Prediabetes Pseudogout Thrombocytopenia (HCC) Normal bone marrow biopsy in 2019 Previous Surgical History PAST SURGICAL HISTORY Procedure Laterality Date COLONOSCOPY Multiple normal colonoscopies COLONOSCOPY FLX DX W/COLLJ SPEC WHEN PFRMD 03/15/2021 ESOPHAGOGASTRODUODENOSCOPY TRANSORAL DIAGNOSTIC 03/15/2021 REPAIR ROTATOR CUFF,ACUTE Left 1995 VASECTOMY 1979' Family History FAMILY HISTORY Problem Relation Age of Onset Breast Cancer Mother Diabetes Father Hypertension Brother No Known Problems Son No Known Problems Son No Known Problems Daughter Patient Allergies ALLERGIES No Known Allergies Current Medications Current Outpatient Medications on File Prior to Visit Medication Sig lactulose (DUPHALAC, CONSTULOSE) 10 g/15 mL soln Take 20 g by mouth three times daily. allopurinol (ZYLOPRIM) 100 mg tablet Take 100 mg by mouth once daily. furosemide (LASIX) 20 mg tablet Take 0.5 tablets by mouth once daily. losartan (COZAAR) 100 mg tablet Take 1 tablet by mouth once daily. rifAXIMin (XIFAXAN) 550 mg tablet Take 1 tablet by mouth twice daily. ferrous sulfate (FEROSUL) 325 mg (65 mg iron) tablet Take 1 tablet by mouth twice daily with meals. pantoprazole DR (PROTONIX) 40 mg tablet Take 1 tablet by mouth twice daily. nadolol (CORGARD) 20 mg tablet Take 20 mg by mouth once daily. blood sugar diagnostic (BLOOD GLUCOSE TEST) test strip Test blood sugar(s) 1 times daily. Dx: Type 2 DM - Controlled E11.9 Insulin: No Lancets lancets Test blood sugar(s) 1 times daily. Dx: Type 2 DM - Controlled E11.9 Insulin: No polyethylene glycol 3350 (MIRALAX, GLYCOLAX) 17 gram/dose powder Use as directed for Miralax / Gatorade Bowel Prep Kit Bisacodyl (DULCOLAX) 5 mg tab Use as directed for Miralax / Gatorade Bowel Prep Kit No current facility-administered medications on file prior to visit. Social History Social History Tobacco Use Smoking status: Former Types: Cigars Quit date: 01/05/2001 Years since quittin.9 Smokeless tobacco: Never Substance Use Topics Alcohol use: Yes Alcohol/week: 20.0 standard drinks Types: 20 Cans of Beer (12oz) per week Comment: 2-3 beers per night (quit approx January 2021) Drug use: Never Review of Symptoms REVIEW OF SYSTEMS See HPI EXAM: BP 122/68 Pulse 69 Resp 16 Wt 89.2 kg (196 lb 9.6 oz) SpO2 98% BMI 28.21 kg/m General Appearance: Well appearing, alert, in no acute distress, well-hydrated, well nourished.. Skin: Skin color, texture, turgor normal, no suspicious rashes or lesions. Lungs: Lungs clear to auscultation. No wheezing, rhonchi, rales.. Heart: RRR without murmur, gallop, or rubs. No ectopy. Abdomen: Normal abdominal exam, Abdomen soft, non-tender. Bowel sounds normal. No masses, organomegaly. Extremities: No deformities, edema, skin discoloration, clubbing or cyanosis. Good capillary refill. . Health Maintenance List ADVANCE DIRECTIVE DISCUSSION Never done COVID-19 VACCINE(3 - Booster for Moderna series) due on 04/18/2023 DTAP,TDAP,TD(1 - Tdap) due on 10/19/2023 SHINGRIX VACCINE(1 of 2) due on 10/19/2023 INFLUENZA(Season Ended) due on 05/03/2023 ANNUAL PCP TEAM CHRONIC DISEASE VISIT due on 10/19/2023 BP CONTROLLED (<130/80) due on 10/19/2023 DIABETES SCREEN due on 10/19/2025 PROSTATE CANCER SCREENING DISCUSSION due on 01/05/2026 LIPID SCREEN due on 10/19/2027 COLORECTAL CANCER SCREENING due on 03/15/2031 HEPATITIS B Completed HEPATITIS A Completed ABDOMINAL AORTIC ANEURYSM SCREENING Completed DEPRESSION ASSESSMENT Completed HEPATITIS C SCREENING Completed PNEUMOCOCCAL: 65+ Completed Data reviewed Component Latest Ref Rng & Units 04/18/2022 10/19/2022 Total Cholesterol, Nonfasting <200 mg/dL 156 Triglycerides, Nonfasting <150 mg/dL 86 HDL Cholesterol, Nonfasting >39 mg/dL 74 LDL Cholesterol, Nonfasting <100 mg/dL 65 Non HDL Cholesterol, Nonfasting <130 mg/dL 82 VLDL Cholesterol, Nonfasting <30 mg/dL 17 Total Chol/HDL Ratio, Nonfasting <5.10 mg/dL 2.11 LDL/HDL Ratio, Nonfasting <2.54 mg/dL 0.88 Hemoglobin A1C 4.3 - 5.6 % 4.6 4.8 Estimated Average Glucose mg/dL 85 91 Uric Acid 4.0 - 8.1 mg/dL 3.5 (L) 3.8 (L) ASSESSMENT/PLAN: 1. Hypoglycemia - ICD9: 251.2, ICD10: E16.2 Discussed continued monitoring at home and gave booklet on meal planning for diabetics. Recommended he get at least 30-60 grams of carbs per meal and on days he is more active, should snack around 10-11am to prevent hypoglycemia. Obtain labs as ordered and will call with results. - COMP METABOLIC PANEL - INSULIN ASSAY BLOOD - C-PEPTIDE BLD - PROINSULIN INTACT BLOOD Cal Quijano MD documented in this encounter [facility] 10-19-2022 Note HNO ID: [id number] Author: Cal Quijano MD Service: ? Author Type: Physician Type: Progress Notes Filed: 10/20/2022 9:24 AM Note Text: Chief Complaint Patient presents with: Follow Up: 6 month HPI Julia Salcido is a 67 year old male who presents here today for Above Complaints.. Anemia improving on recent labs. Taking iron BID as prescribed. Cirrhosis managed by Dr. Leon's office. Next OV on 10/30. Due for repeat EGD in May. Notes that he stopped taking Lasix about 4 months ago because it was making him pee all night after taking around noon. Asking if he can take this in the morning instead. Compliant with his rifaximin, lactulose as prescribed. Denies abdominal pain or swelling, symptoms of GI bleed. Stools consistently darker since starting the iron. Recent labs from [facility] reviewed. BP well controlled on losartan. Needs refill today. Prediabetes: Patient denies polyuria, polydipsia, polyphagia, vision changes, neuropathy. Eating healthy diet. Active with yard work around the home. Lymphedema: patient has compression stockings at home, but does not wear consistently. Has been to lymphedema clinic in the past and has exercises for home. No compression boots. PHQ-2 / Depression screen He in the past two weeks denies having felt down, depressed, hopeless or with little interest or pleasure in doing things. Past medical history, appointments, medications, allergies reviewed. 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 Leon Other male erectile dysfunction Prediabetes Pseudogout Thrombocytopenia (HCC) Normal bone marrow biopsy in 2019 Previous Surgical History PAST SURGICAL HISTORY Procedure Laterality Date COLONOSCOPY Multiple normal colonoscopies COLONOSCOPY FLX DX W/COLLJ SPEC WHEN PFRMD 03/15/2021 ESOPHAGOGASTRODUODENOSCOPY TRANSORAL DIAGNOSTIC 03/15/2021 REPAIR ROTATOR CUFF,ACUTE Left 1995 VASECTOMY 1979's Family History FAMILY HISTORY Problem Relation Age of Onset Breast Cancer Mother Diabetes Father Hypertension Brother No Known Problems Son No Known Problems Son No Known Problems Daughter Patient Allergies ALLERGIES No Known Allergies Current Medications Current Outpatient Medications on File Prior to Visit Medication Sig rifAXIMin (XIFAXAN) 550 mg tablet Take 1 tablet by mouth twice daily. ferrous sulfate (FEROSUL) 325 mg (65 mg iron) tablet Take 1 tablet by mouth twice daily with meals. losartan (COZAAR) 100 mg tablet Take 1 tablet by mouth once daily. pantoprazole DR (PROTONIX) 40 mg tablet Take 1 tablet by mouth twice daily. furosemide (LASIX) 20 mg tablet Take 0.5 tablets by mouth once daily. nadolol (CORGARD) 20 mg tablet Take 20 mg by mouth once daily. blood sugar diagnostic (BLOOD GLUCOSE TEST) test strip Test blood sugar(s) 1 times daily. Dx: Type 2 DM - Controlled E11.9 Insulin: No Lancets lancets Test blood sugar(s) 1 times daily. Dx: Type 2 DM - Controlled E11.9 Insulin: No polyethylene glycol 3350 (MIRALAX, GLYCOLAX) 17 gram/dose powder Use as directed for Miralax / Gatorade Bowel Prep Kit Bisacodyl (DULCOLAX) 5 mg tab Use as directed for Miralax / Gatorade Bowel Prep Kit No current facility-administered medications on file prior to visit. Social History Social History Tobacco Use Smoking status: Former Types: Cigars Quit date: 01/05/2001 Years since quittin.8 Smokeless tobacco: Never Substance Use Topics Alcohol use: Yes Alcohol/week: 20.0 standard drinks Types: 20 Cans of Beer (12oz) per week Comment: 2-3 beers per night (quit approx January 2021) Drug use: Never Review of Symptoms REVIEW OF SYSTEMS GENERAL: No weight loss, malaise or fevers RESPIRATORY: Negative for cough, hemoptysis, wheezing, COPD, dyspnea or shortness of breath CARDIOVASCULAR: Negative for chest pain, leg swelling, hypertension, CHF or palpitations GI: No nausea, vomiting, or diarrhea SKIN: Negative for lesions, rash, and itching EXAM: BP 110/68 Pulse 69 Resp 16 Wt 86.5 kg (190 lb 12.8 oz) SpO2 98% BMI 27.38 kg/m? General Appearance: Well appearing, alert, in no acute distress, well-hydrated, well nourished.. Skin: Skin color, texture, turgor normal, no suspicious rashes or lesions. Lungs: Lungs clear to auscultation. No wheezing, rhonchi, rales.. Heart: RRR without murmur, gallop, or rubs. No ectopy. Abdomen: Normal abdominal exam, Abdomen soft, non-tender. Bowel sounds normal. No masses, organomegaly. Extremities: Mild lymphedema bilaterally with trace to 1+ ed (more content not included)... [facility] 10-19-2022 History of Presen t illness Narrative Chief Complaint Patient presents with: Follow Up: 6 month HPI Julia Salcido is a 67 year old male who presents here today for Above Complaints.. Anemia improving on recent labs. Taking iron BID as prescribed. Cirrhosis managed by Dr. Leon's office. Next OV on 10/30. Due for repeat EGD in May. Notes that he stopped taking Lasix about 4 months ago because it was making him pee all night after taking around noon. Asking if he can take this in the morning instead. Compliant with his rifaximin, lactulose as prescribed. Denies abdominal pain or swelling, symptoms of GI bleed. Stools consistently darker since starting the iron. Recent labs from [facility] reviewed. BP well controlled on losartan. Needs refill today. Prediabetes: Patient denies polyuria, polydipsia, polyphagia, vision changes, neuropathy. Eating healthy diet. Active with yard work around the home. Lymphedema: patient has compression stockings at home, but does not wear consistently. Has been to lymphedema clinic in the past and has exercises for home. No compression boots. PHQ-2 / Depression screen He in the past two weeks denies having felt down, depressed, hopeless or with little interest or pleasure in doing things. Past medical history, appointments, medications, allergies reviewed. 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 Lymphedema Macrocytic anemia Normal bone marrow biopsy in 2019 Other ascites Other cirrhosis of liver (HCC) 2/2 JUSTICE- Friend Other male erectile dysfunction Prediabetes Pseudogout Thrombocytopenia (HCC) Normal bone marrow biopsy in 2019 Previous Surgical History PAST SURGICAL HISTORY Procedure Laterality Date COLONOSCOPY Multiple normal colonoscopies COLONOSCOPY FLX DX W/COLLJ SPEC WHEN PFRMD 03/15/2021 ESOPHAGOGASTRODUODENOSCOPY TRANSORAL DIAGNOSTIC 03/15/2021 REPAIR ROTATOR CUFF,ACUTE Left 1995 VASECTOMY Family History FAMILY HISTORY Problem Relation Age of Onset Breast Cancer Mother Diabetes Father Hypertension Brother No Known Problems Son No Known Problems Son No Known Problems Daughter Patient Allergies ALLERGIES No Known Allergies Current Medications Current Outpatient Medications on File Prior to Visit Medication Sig rifAXIMin (XIFAXAN) 550 mg tablet Take 1 tablet by mouth twice daily. ferrous sulfate (FEROSUL) 325 mg (65 mg iron) tablet Take 1 tablet by mouth twice daily with meals. losartan (COZAAR) 100 mg tablet Take 1 tablet by mouth once daily. pantoprazole DR (PROTONIX) 40 mg tablet Take 1 tablet by mouth twice daily. furosemide (LASIX) 20 mg tablet Take 0.5 tablets by mouth once daily. nadolol (CORGARD) 20 mg tablet Take 20 mg by mouth once daily. blood sugar diagnostic (BLOOD GLUCOSE TEST) test strip Test blood sugar(s) 1 times daily. Dx: Type 2 DM - Controlled E11.9 Insulin: No Lancets lancets Test blood sugar(s) 1 times daily. Dx: Type 2 DM - Controlled E11.9 Insulin: No polyethylene glycol 3350 (MIRALAX, GLYCOLAX) 17 gram/dose powder Use as directed for Miralax / Gatorade Bowel Prep Kit Bisacodyl (DULCOLAX) 5 mg tab Use as directed for Miralax / Gatorade Bowel Prep Kit No current facility-administered medications on file prior to visit. Social History Social History Tobacco Use Smoking status: Former Types: Cigars Quit date: 01/05/2001 Years since quittin.8 Smokeless tobacco: Never Substance Use Topics Alcohol use: Yes Alcohol/week: 20.0 standard drinks Types: 20 Cans of Beer (12oz) per week Comment: 2-3 beers per night (quit approx January 2021) Drug use: Never Review of Symptoms REVIEW OF SYSTEMS GENERAL: No weight loss, malaise or fevers RESPIRATORY: Negative for cough, hemoptysis, wheezing, COPD, dyspnea or shortness of breath CARDIOVASCULAR: Negative for chest pain, leg swelling, hypertension, CHF or palpitations GI: No nausea, vomiting, or diarrhea SKIN: Negative for lesions, rash, and itching EXAM: BP 110/68 Pulse 69 Resp 16 Wt 86.5 kg (190 lb 12.8 oz) SpO2 98% BMI 27.38 kg/m General Appearance: Well appearing, alert, in no acute distress, well-hydrated, well nourished.. Skin: Skin color, texture, turgor normal, no suspicious rashes or lesions. Lungs: Lungs clear to auscultation. No wheezing, rhonchi, rales.. Heart: RRR without murmur, gallop, or rubs. No ectopy. Abdomen: Normal abdominal exam, Abdomen soft, non-tender. Bowel sounds normal. No masses, organomegaly. Extremities: Mild lymphedema bilaterally with trace to 1+ edema to mid humphreys. Not wearing compression stockings. Health Maintenance List DTAP,TDAP,TD(1 - Tdap) Never done SHINGRIX VACCINE(1 of 2) Never done INFLUENZA(1) due on 05/03/2022 ADVANCE DIRECTIVE DISCUSSION Never done DEPRESSION ASSESSMENT Never done COVID-19 VACCINE(3 - Booster for Moderna series) due on 04/18/2023 ANNUAL PCP TEAM CHRONIC DISEASE VISIT due on 04/18/2023 BP CONTROLLED (<130/80) due on 04/18/2023 DIABETES SCREEN due on 04/18/2025 LIPID SCREEN due on 11/09/2025 PROSTATE CANCER SCREENING DISCUSSION due on 01/05/2026 COLORECTAL CANCER SCREENING due on 03/15/2031 HEPATITIS B Completed HEPATITIS A Completed ABDOMINAL AORTIC ANEURYSM SCREENING Completed HEPATITIS C SCREENING Completed PNEUMOCOCCAL: 65+ Completed Data reviewed Component Latest Ref Rng & Units 04/18/2022 Hemoglobin A1C 4.3 - 5.6 % 4.6 Estimated Average Glucose mg/dL 85 Uric Acid 4.0 - 8.1 mg/dL 3.5 (L) ASSESSMENT/PLAN: 1. Prediabetes - ICD9: 790.29, ICD10: R73.03 (primary diagnosis) Asymptomatic. Recheck A1c. Discussed low carb diet, exercise. - HGB A1C - LIPID PANEL, NONFASTING 2. Essential hypertension - ICD9: 401.9, ICD10: I10 - good control - Continue current medication(s) - Encouraged dietary sodium restriction/DASH diet - Recommended regular aerobic exercise. - Reviewed risks of HTN and principles of treatment - Goal of BP <140/90 - LOSARTAN 100 MG TABLET 3. Other cirrhosis of liver (HCC) - ICD9: 571.5, ICD10: K74.69 Reviewed recent labs from GI office. LFTs stable. No ascites on exam today. Discussed continuing current regimen and resume lasix. F/u with Dr. Leon's office as recommended. - FUROSEMIDE 20 MG TABLET 4. Secondary esophageal varices with bleeding (HCC) - ICD9: 456.20, ICD10: I85.11 No recurrent bleeding symptoms. Continue current regimen. 5. Anemia due to acute blood loss - ICD9: 285.1, ICD10: D62 Improved on iron. 6. Lymphedema of both lower extremities - ICD9: 457.1, ICD10: I89.0 Mild to moderate today. Discussed home exercises, compression stockings, and leg elevation. 7. Chronic gout without tophus, unspecified cause, unspecified site - ICD9: 274.02, ICD10: [id number].[id number] No new symptoms. Will monitor uric acid level. Continue current regimen and gout diet. . 8. Overweight (BMI 25.0-29.9) - ICD9: 278.02, ICD10: E66.3 Weight decreasing - Behavioral intervention Cal Quijano MD documented in this encounter [facility] 06-11-2022 Miscellaneous Notes [facility] 04/18/22 NOV 10/19/22 Patient has been identified by name and date of : Yes Requested Prescriptions Pending Prescriptions Disp Refills triamcinolone acetonide (KENALOG) 0.1 % cream 45 g 1 Sig: Apply 1 application to affected area twice daily for 14 days. Apply sparingly to area for rash/itching. RX INSTRUCTIONS: Patient would like medication called in this morning so he can pick it up after 2. Patient aware RX will be sent to pharmacy. No need to notify patient. Madison Washington documented in this encounter [facility] 04-19-2022 Miscellaneous Notes Pt called and is notified of providers message and instructions. Pt voices understanding. Tasha Christine RN Med list updated. Will recheck labs in 6 months. Ordered. Patient notified of results, verbalizes understanding of instructions & agrees to d/c Metformin. Deja Roman MA Patient's A1c continues to improve. Would consider discontinuing his metformin at this time since his A1c is down to 4.6. If he agrees, will remove from his med list and recheck in 6 months. Uric acid is also low on his 100 mg allopurinol BID. Would recommend cutting down to 100 mg daily with recheck in 6 months. documented in this encounter [facility] 02-19-2022 Miscellaneous Notes [facility] 10/16/2021 Appointment scheduled for 04/18/2022 Please advise. Thank you. YISSEL Vargas Patient has been identified by name and date of : Yes Pending Prescriptions Disp Refills METFORMIN 500 MG TABLET 180 tablet 1 Sig: Take 1 tablet by mouth twice daily with meals. RAQUEL: No RX INSTRUCTIONS: Patient requesting a call when RX is approved and sent to the pharmacy. Please call patient at: [phone] as patient is completely out of this medication as of last week. Stephanie Ratliff [employer] documented in this encounter [facility] 01-08-2022 History of Presen t illness Narrative Patient presents for Twinrix vaccine. Denies any problems at this time. Tolerated injection well. Luz Marina Pena LPN documented in this encounter [facility] 12-25-2021 Miscellaneous Notes Order approved. Patient scheduled for nurse visit 01/08/22 to receive Twinrix vaccine. Please place order at this time. Luz Marina Pena LPN documented in this encounter [facility] 02-24-2021 Miscellaneous Notes Reviewed. Keep appointment today. Patient reports he had about 6 black liquid stools on , and again on Sat. Had bloating and a lot of gas. The stools were foul smelling. No pain. Has not had much appetite. The black liquid stools started tapering on , and today had 2 small stools with very minimal amount of black- on toilet tissue, and a little in stool. Took tums today, and ibuprofen (for stiff neck he woke up with). Is drinking gatorade. Has not eaten yet today, but does not normally eat right away into his day. Quit taking ferrous sulfate on 01-31-21. Does have anemia and low platelets and saw Dr. Moreland for this. Reports Dr. Moreland informed him he has hemochromatosis, and that will not change, and will not need to f/u with him for this. He feels better today- no bloating or gas. No pain. A little tired. Last colonoscopy was 5 yrs ago at [facility] and was normal. Scheduled VV with pcp today. documented in this encounter [facility] Diagnosis Need for vaccination- Primary Need for prophylactic vaccination and inoculation against unspecified single disease Other cirrhosis of liver (HCC) [facility] Diagnosis Prediabetes- Primary Other abnormal glucose Need for vaccination Need for prophylactic vaccination and inoculation against unspecified single disease Chronic gout without tophus, unspecified cause, unspecified site [facility] Diagnosis Other eczema [facility] Diagnosis Prediabetes- Primary Other abnormal glucose Essential hypertension Unspecified essential hypertension Other cirrhosis of liver (HCC) Secondary esophageal varices with bleeding (HCC) Esophageal varices with bleeding in diseases classified elsewhere Anemia due to acute blood loss Acute posthemorrhagic anemia Lymphedema of both lower extremities Chronic gout without tophus, unspecified cause, unspecified site Overweight (BMI 25.0-29.9) Overweight Thrombocytopenia (HCC) Thrombocytopenia, unspecified [facility] Diagnosis Hypoglycemia- Primary Hypoglycemia, unspecified [facility] Diagnosis Hypoglycemia- Primary Hypoglycemia, unspecified Elevated C peptide level Nonspecific abnormal results of other endocrine function study [facility] Diagnosis Bleeding esophageal varices, unspecified esophageal varices type (HCC) [facility] Diagnosis Essential hypertension- Primary Unspecified essential hypertension Prediabetes Other abnormal glucose Overweight (BMI 25.0-29.9) Overweight Cirrhosis, nonalcoholic (HCC) Cirrhosis of liver without mention of alcohol Secondary esophageal varices with bleeding (HCC) Esophageal varices with bleeding in diseases classified elsewhere Anemia due to acute blood loss Acute posthemorrhagic anemia Thrombocytopenia (HCC) Thrombocytopenia, unspecified Chronic gout without tophus, unspecified cause, unspecified site Hyperammonemia (HCC) Disorders of urea cycle metabolism documented in this encounter [facility] Summary Purpose Family History No Family History Records FoundNo Family History Records FoundNo Family History Records FoundNo Family History Records FoundNo Family History Records Found Advance Directives No Advanced Directives Records FoundDocuments on File Type Date Recorded Patient Light Bulb Replacer Expl anation Advance Directives and Livin g Will 11/12/2018 8:47 AM Documents on File Type Date Recorded Patient Light Bulb Replacer Expl anation Advance Directive(s) 03/15/2021 9:29 AM Advance Directive(s) 03/07/2021 1:10 PM Instructions * Patient Instructions* Pacheco Thomas Jr., MD - 10/20/2018 4:45 PM EST Plan: 1. CBC;RETIC;LDH;DIRECT ZEB;B12;FOLATE;HEPATIC PROFILE TODAY 2. CT OF ABDOMEN AND PELVIS re:POSSIBLE CIRRHOSIS 3. OFFICE APPOINTMENT AFTER #1 AND #2 in this encounter* Patient Instructions* Pacheco Thomas Jr., MD - 11/14/2018 12:46 PM EDT Plan: 1. SCHEDULE BONE MARROW 2. OFFICE APPOINTMENT 2 WEEKS AFTER BONE MARROW in this encounter* Patient Instructions* Pacheco Thomas Jr., MD - 12/03/2018 10:00 AM EDT Plan: 1. STOP ALL ALCOHOL 2. CONSIDER HEPATOLOGY CONSULTATION WITH DR. KINCAID AT [facility] OR [facility] 3. CBC EVERY 3 MONTHS 4. RETURN NEEDED in this encounter History of Present Illness * Pacheco Thomas Jr., MD - 10/20/2018 4:35 PM EST Subjective: The patient presents today for evaluation of low blood counts. The patient himself is asymptomatic, and reports that these studies have been noted on labs but he has not had any fevers sweats easy bruising or fatigue. 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 Victorino Li Dumont Diagnoses: Pancytopenia Leukopenia (2800) with ANC of 1388 Macrocytic anemia Thrombocytopenia (110,000) The patient is a 63-year-old man with a history of progressive pancytopenia dating to January 30, 2017.His most recent CBC on September 24, 2028 included White blood count 2800 Hemoglobin 13.2 Hematocrit 38 MCV 108.5 Platelet count 110,000 49.6% neutrophils 33.3% lymphocytes 11.8% monocytes Past medical history Illnesses Gout Hypertension Diabetes Pseudogout Mixed hyperlipidemia Social history and lives with his 3 grown children 2 sons and 1 daughter. Patient smoked 5-6 cigars/day until 5 years ago. He continues to have 2 beers and 2 shots of dorothy daily He denies smoking marijuana, street drug abuse, or prescription pain drug abuse. 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 Patient ID: Julia Salcido is a 63 y.o. male. No problems updated. Past Medical History: Diagnosis Date Hypertension Leukopenia History reviewed. No pertinent surgical history. History reviewed. No pertinent family history. Social History Socioeconomic History Marital status: Spouse name: Not on file Number of children: Not on file Years of education: Not on file Highest education level: Not on file Social Needs Financial resource strain: Not on file Food insecurity - worry: Not on file Food insecurity - inability: Not on file Transportation needs - medical: Not on file Transportation needs - non-medical: Not on file Occupational History Not on file Tobacco Use Smoking status: Former Smoker Last attempt to quit: 10/20/2013 Years since quittin.0 Smokeless tobacco: Never Used Tobacco comment: 5 CIGARS PER DAY, HASNT SMOKED IN 5 YRS Substance and Sexual Activity Alcohol use: Not Currently Alcohol/week: 2.4 oz Types: 2 Cans of beer, 2 Shots of liquor per week Comment: SINCE AGE OF 20 Drug use: Never Sexual activity: Not on file Other Topics Concern Not on file Social History Narrative Not on file No Known Allergies Current Outpatient Medications Medication Sig Dispense Refill acetaminophen (TYLENOL) 325 MG tablet Take 650 mg by mouth every 6 (six) hours as needed for pain . allopurinol (ZYLOPRIM) 100 MG tablet Take 100 mg by mouth 2 (two) times a day . atenolol (TENORMIN) 50 MG tablet Take 50 mg by mouth 2 (two) times a day . chlorthalidone (HYGROTEN) 25 MG tablet Take 25 mg by mouth daily . losartan (COZAAR) 100 MG tablet Take 100 mg by mouth daily . metFORMIN (GLUMETZA) 500 MG (MOD) 24 hr tablet Take 500 mg by mouth 2 (two) times a day with meals . No current facility-administered medications for this visit. Review of Systems Constitutional: Negative for chills, fatigue, fever and unexpected weight change. HENT: Negative for ear pain and trouble swallowing. Eyes: Negative for pain and discharge. Respiratory: Negative for cough, shortness of breath and wheezing. Cardiovascular: Negative for chest pain, palpitations and leg swelling. Gastrointestinal: Negative for abdominal pain, constipation, diarrhea, nausea and vomiting. Endocrine: Negative for cold intolerance and heat intolerance. Genitourinary: Negative for difficulty urinating and dysuria. Musculoskeletal: Negative for arthralgias, back pain and gait problem. Skin: Negative for rash. Allergic/Immunologic: Negative for environmental allergies and food allergies. Neurological: Negative for dizziness, weakness and headaches. Hematological: Negative for adenopathy. Does not bruise/bleed easily. Psychiatric/Behavioral: Negative for confusion and sleep disturbance. Objective: BP 138/78 (BP Location: Left arm) Pulse 82 Temp 98.7 F (37.1 C) (Oral) Ht 5' 11 Wt 107.9 kg (237 lb 12.8 oz) SpO2 97% BMI 33.17 kg/m Physical Exam Constitutional: He is oriented to person, place, and time. He appears well- developed and well-nourished. No distress. HENT: Head: Normocephalic and atraumatic. Eyes: Pupils are equal, round, and reactive to light. Neck: Normal range of motion. Neck supple. Cardiovascular: Normal rate, regular rhythm and normal heart sounds. No murmur heard. Pulmonary/Chest: Effort normal and breath sounds normal. He has no wheezes. He has no rales. Abdominal: Soft. Bowel sounds are normal. He exhibits no mass. There is no splenomegaly or hepatomegaly. There is no tenderness. There is no guarding. Obese No masses Lymphadenopathy: He has no cervical adenopathy. Neurological: He is alert and oriented to person, place, and time. Skin: Skin is warm and dry. No rash noted. No erythema. Psychiatric: He has a normal mood and affect. His behavior is normal. Judgment and thought content normal. Nursing note and vitals reviewed. Assessment/Plan: Diagnoses and all orders for this visit: Pancytopenia (HCC) Leukopenia, unspecified type Macrocytic anemia Thrombocytopenia (HCC) I discussed the patient's findings with him, along with the possible causes. We need to investigatenutritional causes such as B12 and folate deficiency, liver disease, autoimmune disease, and hemolysis. Given his lifelong daily alcohol intake, this may be cirrhosis with portal hypertension. We also need to consider underlying primary bone marrow disease. Plan: 1. CBC;RETIC;LDH;DIRECT ZEB;B12;FOLATE;HEPATIC PROFILE TODAY 2. CT OF ABDOMEN AND PELVIS re:POSSIBLE CIRRHOSIS 3. OFFICE APPOINTMENT AFTER #1 AND #2 in this encounter* Pacheco Thomas Jr., MD - 11/14/2018 12:30 PM EDT Subjective: Insurance denied CT of abd and pelvis and stated they wanted an ultrasound done first. Returns in follow-up of pancytopenia and for results of ultrasound obtained to evaluate liver and spleen in view of his hematologic process. Otherwise he has no new complaints today. Patient ID: Julia Salcido is a 63 y.o. male. HPI: Referring physician: Dr. Victorino Li Dumont Diagnoses: Pancytopenia Leukopenia (2800) with ANC of 1388 Macrocytic anemia Thrombocytopenia (110,000) The patient is a 63-year-old man with a history of progressive pancytopenia dating to January 30, 2017.His most recent CBC on September 24, 2028 included White blood count 2800 Hemoglobin 13.2 Hematocrit 38 MCV 108.5 Platelet count 110,000 49.6% neutrophils 33.3% lymphocytes 11.8% monocytes Complete ultrasound of the abdomen on November 12, 2018 was interpreted as follows: IMPRESSION: 1. Fatty infiltration of the liver. 2. Right inferior pole renal cyst measuring 1.5 cm. 3. Possible scarring involving the inferior pole of the right kidney. 4. Normal ultrasound appearance of the spleen Recent Results (from the past 672 hour(s)) CBC and Differential Collection Time: 10/21/18 1:21 PM Result Value Ref Range WBC 3.3 (L) 3.6 - 10.4 K/mcL RBC 3.42 (L) 4.0 - 5.5 M/mcL Hemoglobin 12.7 (L) 12.9 - 16.9 g/dL Hematocrit 36.6 (L) 37.9 - 49.2 % MCV 107.1 (H) 82.8 - 99.3 FL MCH 37.2 (H) 27.7 - 34.6 pg MCHC 34.8 32.9 - 35.5 g/dL RDW 14.3 10 - 14.3 % Platelets 121 (L) 139 - 354 K/mcL MPV 9.9 6.6 - 10.8 FL Absolute Neutrophils 1.8 1.4 - 6.8 K/mcL Absolute Lymphocytes 1.1 0.9 - 3.6 K/mcL Absolute Monocytes 0.3 0.2 - 0.6 K/mcL Absolute Eosinophils 0.1 0 - 0.5 K/mcL Absolute Basophils 0.0 0 - 0.2 K/mcL Segmented Neut 53.3 % Lymphocytes 33.1 % Monocytes 9.2 % Eosinophils 3.1 % Basophils 1.3 % Reticulocyte Collection Time: 10/21/18 1:21 PM Result Value Ref Range Reticulocytes 1.70 0.5 - 1.7 % LDH Collection Time: 10/21/18 1:21 PM Result Value Ref Range LDH 190 100 - 250 U/L Hepatic Function Panel Collection Time: 10/21/18 1:21 PM Result Value Ref Range AST 91 (H) 0 - 45 U/L ALT 71 (H) 14 - 65 U/L Alkaline Phosphatase 90 40 - 150 U/L Bilirubin, Total 1.5 (H) 0.3 - 1.2 mg/dL Bilirubin, Direct 0.5 (H) 0.0 - 0.4 mg/dL Total Protein 7.5 6.0 - 8.0 g/dL Albumin 3.5 3.2 - 5.2 g/dL CECE Screen (Zeb) Collection Time: 10/21/18 1:21 PM Result Value Ref Range CECE Screen (Zeb) Negative Vitamin B12 and Folates Collection Time: 10/21/18 1:21 PM Result Value Ref Range B12 350 193 - 986 pg/mL Folate 7.7 3.1 - 17.5 ng/mL The following portions of the patient's history were reviewed and updated as appropriate: allergies, current medications, past family history, past social history, past surgical history and problem list. Review of Systems Constitutional: Negative for chills, fatigue, fever and unexpected weight change. HENT: Negative for ear pain and trouble swallowing. Eyes: Negative for pain and discharge. Respiratory: Negative for cough, shortness of breath and wheezing. Cardiovascular: Negative for chest pain, palpitations and leg swelling. Gastrointestinal: Negative for abdominal pain, constipation, diarrhea, nausea and vomiting. Endocrine: Negative for cold intolerance and heat intolerance. Genitourinary: Negative for difficulty urinating and dysuria. Musculoskeletal: Negative for arthralgias, back pain and gait problem. Skin: Negative for rash. Allergic/Immunologic: Negative for environmental allergies and food allergies. Neurological: Negative for dizziness, weakness and headaches. Hematological: Negative for adenopathy. Does not bruise/bleed easily. Psychiatric/Behavioral: Negative for confusion and sleep disturbance. Objective: BP 149/85 (BP Location: Left arm) Pulse 80 Temp 98.8 F (37.1 C) (Oral) Ht 5' 11 Wt 108.1 kg (238 lb 6.4 oz) SpO2 97% BMI 33.25 kg/m Physical Exam Constitutional: He is oriented to person, place, and time. He appears well- developed and well-nourished. No distress. HENT: Head: Normocephalic and atraumatic. Eyes: Pupils are equal, round, and reactive to light. Neck: Normal range of motion. Neck supple. Cardiovascular: Normal rate, regular rhythm and normal heart sounds. No murmur heard. Pulmonary/Chest: Effort normal and breath sounds normal. He has no wheezes. He has no rales. Abdominal: Soft. Bowel sounds are normal. He exhibits no mass. There is no splenomegaly or hepatomegaly. There is no tenderness. There is no guarding. Lymphadenopathy: He has no cervical adenopathy. Neurological: He is alert and oriented to person, place, and time. Skin: Skin is warm and dry. No rash noted. No erythema. Psychiatric: He has a normal mood and affect. His behavior is normal. Judgment and thought content normal. Nursing note and vitals reviewed. Assessment/Plan: Diagnoses and all orders for this visit: Hepatic cirrhosis, unspecified hepatic cirrhosis type, unspecified whether ascites present (HCC) Thrombocytopenia (HCC) Pancytopenia (HCC) Macrocytic anemia Plan: 1. SCHEDULE BONE MARROW 2. OFFICE APPOINTMENT 2 WEEKS AFTER BONE MARROW in this encounter* Pacheco Thomas Jr., MD - 11/19/2018 1:32 PM EDT Bone Marrow Biopsy Name Julia Salcido Age 63 y.o. Sex male Diagnosis Pancytopenia (HCC) [D61.818] Patient's ASA classification is I. A time out was held. The patient was placed in the left lateral decubitus position. The right posterior iliac crest was prepped with Betadine Solution. Local anesthetic was achieved with 1% xylocaine. The patient was sedated with 75 mg Demerol IV and 6 mg Versed IV. A percutaneous Bone Marrow Biopsy and aspirate were obtained from the right posterior iliac crest without difficulty. The procedure was well-tolerated, without complication. * Babita Reno RN - 11/19/2018 11:30 AM EDT Pt was here for bone marrow aspiration today , completed by Dr. Alpa Thomas on [facility], his procedure nurses were Halle Asencio RN and Cassidy Reno RN, procedure was tolerated well and pt discharged home at 1050am. in this encounter* Pacheco Thomas Jr., MD - 12/03/2018 9:55 AM EDT Subjective: Patient returns today to discuss bone marrow results. He has no new complaints and his review of systems is stable. Patient ID: Julia Salcido is a 63 y.o. male. HPI: Referring physician: Dr. Victorino Li Dumont Diagnoses: Pancytopenia Leukopenia (2800) with ANC of 1388 Macrocytic anemia Thrombocytopenia (110,000) The patient is a 63-year-old man with a history of progressive pancytopenia dating to January 30, 2017.His most recent CBC on September 24, 2028 included White blood count 2800 Hemoglobin 13.2 Hematocrit 38 MCV 108.5 Platelet count 110,000 49.6% neutrophils 33.3% lymphocytes 11.8% monocytes Complete ultrasound of the abdomen on November 12, 2018 was interpreted as follows: IMPRESSION: 1. Fatty infiltration of the liver. 2. Right inferior pole renal cyst measuring 1.5 cm. 3. Possible scarring involving the inferior pole of the right kidney. 4. Normal ultrasound appearance of the spleen Recent Results (from the past 504 hour(s)) Bone Marrow Biopsy and Exam Collection Time: 11/19/18 12:00 AM Result Value Ref Range Case Report Bone Marrow Pathology Report Case: [id number] Authorizing Provider: Amy Brown CNP Collected: 11/19/2018 Ordering Location: [facility] Received: 11/19/2018 10:22 AM Representative Pathologist: Melquiades Diaz IV, MD Specimens: A) - Iliac Crest B) - Iliac Crest C) - Iliac Crest D) - Blood, Peripheral Final Diagnosis Bone marrow core biopsy, clot section(s), aspirate smears, and peripheral blood smear: 1. Normocellular bone marrow with trilineage hematopoiesis. 2. No morphologic evidence of a myeloid neoplasm. 3. Cytogenetic studies showing a normal male karyotype (46, XY). Clinical Information thrombocytopenia, pancytopenia, and macrocytic anemia Gross Description A. Received fresh is 1 core(s) of bone measuring 5.5 x 0.3 x 0.3 cm. Submitted for decalcification.Totally submitted in cassette 1. B. Received fresh is 1 red-purple blood clot(s) measuring 3.2 x 1.1 x 0.9 cm. Totally submitted in cassette 1. C. Received are 4 aspirate smears ( 3 Cantu stain, 1 iron stain) and 1 peripheral blood smear (Cantu stain). CS/arj Gross examination performed at: [facility] - [address] [place] [id number] CBC and Differential Component Value Ref Range & Units WBC 2.90 Low 4.50 - 11.00 K/mcL RBC 2.93 Low 4.50 - 5.90 M/mcL Hemoglobin 10.8 Low 13.5 - 17.5 g/dL Hematocrit 30.1 Low 41.0 - 53.0 % MCV 102.7 High 80.0 - 100.0 fL MCH 36.9 High 26.0 - 34.0 pg MCHC 35.9 31.0 - 37.0 g/dL Platelets 87Low 150 - 400 K/mcL RDW - CV 12.6 11.6 - 14.8 % MPV 11.6 9.0 - 15.5 fL Neutrophils 55.8 % Lymphocytes 25.5 % Monocytes 15.2 % Eosinophils 2.1 % Basophils 0.7 % IG Percent 0.70 % Neutrophils Abs 1.62 Low 1.70 - 7.00 K/mcL Lymphocytes Abs 0.74 Low 0.90 - 4.00 K/mcL Monocytes Abs 0.44 0.30 - 0.90 K/mcL Eosinophils Abs 0.06 0.00 - 0.50 K/mcL Basophils Abs 0.02 0.00 - 0.30 K/mcL IG Absolute 0.02 0.00 - 0.30 K/mcL Nucleated RBC 0.0 % Nucleated RBC Abs 0.00 0.00 - 0.00 K/mcL Component Value Ref Range & Units Retic Percent 1.9 % Retic Absolute 0.055 0.040 - 0.090 M/mcL Imm Retic Fract 5.1Low 10.0 - 40.0 % Retic Hgb Equivalent 39.8High 27.7 - 38.2 PG Peripheral blood smear microscopic findings: Leukopenia with absolute neutropenia and lymphopenia. Macrocytic anemia. Thrombocytopenia. Bone Marrow Differential Cells counted: 500 Cell Type: Value: Normal Range: Blasts 3 % 0-2 % Promyelocytes 1 % 1-5 % Myelos/Metas/Bands/Segs / = 39 % 32-72 % Eosinophils 1 % 1-6 % Basophils 0 % 0-1 % Monocytes 3 % 0-4 % Erythroid precursors 37 % 13-37 % Lymphocytes 15 % 7-23 % Plasma cells 1 % 0-2 % Myeloid:Erythroid Ratio 1.3 1.5-4.0 Tech initials: JMM Aspirate Smear Iron stores: No evidence of increased ring sideroblasts. Specimen Quality: Cellular, spicular. Megakaryocytes: Present. Unremarkable morphology. Erythropoiesis: Progressive maturation. A subset of red cell precursors show megaloblastoid change (less than 10 percent). Granulopoiesis: Progressive maturation. Core Biopsy BONE MARROW BIOPSY: Adequacy: Adequate. Cellularity: Normocellular bone marrow for age (approximately 30 percent). ME ratio: Mildly decreased. Hematopoiesis: Trilineage hematopoiesis. Megakaryocytes: Present. Megakaryocyte morphology: Unremarkable. Lymphoid infiltrate: Not identified. Atypical infiltrate: Not identified. Bone trabeculae: Unremarkable. Iron: Storage iron present (3+ of 4+). Clot Section CLOT SECTION: Marrow particles: Absent. Flow Cytometry Summary No diagnostic immunophenotypic abnormalities. POC Glucose Collection Time: 11/19/18 7:25 AM Result Value Ref Range Glucose 126 (H) 65 - 99 mg/dL CBC Auto Differential Collection Time: 11/19/18 9:03 AM Result Value Ref Range WBC 2.90 (L) 4.50 - 11.00 K/mcL RBC 2.93 (L) 4.50 - 5.90 M/mcL Hemoglobin 10.8 (L) 13.5 - 17.5 g/dL Hematocrit 30.1 (L) 41.0 - 53.0 % MCV 102.7 (H) 80.0 - 100.0 fL MCH 36.9 (H) 26.0 - 34.0 pg MCHC 35.9 31.0 - 37.0 g/dL Platelets 87 (L) 150 - 400 K/mcL RDW - CV 12.6 11.6 - 14.8 % MPV 11.6 9.0 - 15.5 fL Neutrophils 55.8 % Lymphocytes 25.5 % Monocytes 15.2 % Eosinophils 2.1 % Basophils 0.7 % IG Percent 0.70 % Neutrophils Abs 1.62 (L) 1.70 - 7.00 K/mcL Lymphocytes Abs 0.74 (L) 0.90 - 4.00 K/mcL Monocytes Abs 0.44 0.30 - 0.90 K/mcL Eosinophils Abs 0.06 0.00 - 0.50 K/mcL Basophils Abs 0.02 0.00 - 0.30 K/mcL IG Absolute 0.02 0.00 - 0.30 K/mcL Nucleated RBC 0.0 % Nucleated RBC Abs 0.00 0.00 - 0.00 K/mcL Reticulocyte Collection Time: 11/19/18 9:03 AM Result Value Ref Range Retic Percent 1.9 % Retic Absolute 0.055 0.040 - 0.090 M/mcL Imm Retic Fract 5.1 (L) 10.0 - 40.0 % Retic Hgb Equivalent 39.8 (H) 27.7 - 38.2 PG CBC and Diff Morphology Collection Time: 11/19/18 9:03 AM Result Value Ref Range RBC Morphology Normal The following portions of the patient's history were reviewed and updated as appropriate: allergies, current medications, past family history, past social history, past surgical history and problem list. Review of Systems Constitutional: Negative for chills, fatigue, fever and unexpected weight change. HENT: Negative for ear pain and trouble swallowing. Eyes: Negative for pain and discharge. Respiratory: Negative for cough, shortness of breath and wheezing. Cardiovascular: Negative for chest pain, palpitations and leg swelling. Gastrointestinal: Negative for abdominal pain, constipation, diarrhea, nausea and vomiting. Endocrine: Negative for cold intolerance and heat intolerance. Genitourinary: Negative for difficulty urinating and dysuria. Musculoskeletal: Negative for arthralgias, back pain and gait problem. Skin: Negative for rash. Allergic/Immunologic: Negative for environmental allergies and food allergies. Neurological: Negative for dizziness, weakness and headaches. Hematological: Negative for adenopathy. Does not bruise/bleed easily. Psychiatric/Behavioral: Negative for confusion and sleep disturbance. Objective: BP (!) 153/90 (BP Location: Right arm) Pulse 77 Temp 98.7 F (37.1 C) (Oral) Ht 5' 1 Wt 104.7 kg (230 lb 12.8 oz) SpO2 98% BMI 43.61 kg/m Physical Exam Constitutional: He is oriented to person, place, and time. He appears well- developed and well-nourished. No distress. HENT: Head: Normocephalic and atraumatic. Eyes: Pupils are equal, round, and reactive to light. Neck: Normal range of motion. Neck supple. Cardiovascular: Normal rate, regular rhythm and normal heart sounds. No murmur heard. Pulmonary/Chest: Effort normal and breath sounds normal. He has no wheezes. He has no rales. Abdominal: Soft. Bowel sounds are normal. He exhibits no mass. There is no splenomegaly or hepatomegaly. There is no tenderness. There is no guarding. Lymphadenopathy: He has no cervical adenopathy. Neurological: He is alert and oriented to person, place, and time. Skin: Skin is warm and dry. No rash noted. No erythema. Psychiatric: He has a normal mood and affect. His behavior is normal. Judgment and thought content normal. Nursing note and vitals reviewed. Assessment/Plan: Diagnoses and all orders for this visit: Hepatic cirrhosis, unspecified hepatic cirrhosis type, unspecified whether ascites present (HCC) Thrombocytopenia (HCC) Pancytopenia (HCC) Macrocytic anemia Plan: 1. STOP ALL ALCOHOL 2. CONSIDER HEPATOLOGY CONSULTATION WITH DR. KINCAID AT [facility] OR [facility] GA[facility] 3. CBC EVERY 3 MONTHS 4. RETURN NEEDED in this encounter Assessments Diagnosis Pancytopenia (HCC)- Primary Leukopenia, unspecified type Macrocytic anemia Thrombocytopenia (HCC) Unspecified thrombocytopenia Diagnosis Hepatic cirrhosis, unspecified hepatic cirrhosis type, unspecified whether ascites present (HCC) Thrombocytopenia (HCC) Unspecified thrombocytopenia Pancytopenia (HCC) Diagnosis Hepatic cirrhosis, unspecified hepatic cirrhosis type, unspecified whether ascites present (HCC)- Primary Thrombocytopenia (HCC) Unspecified thrombocytopenia Pancytopenia (HCC) Macrocytic anemia Diagnosis Pancytopenia (HCC)- Primary Macrocytic anemia Thrombocytopenia (HCC) Unspecified thrombocytopenia Diagnosis Hepatic cirrhosis, unspecified hepatic cirrhosis type, unspecified whether ascites present (HCC)- Primary Thrombocytopenia (HCC) Unspecified thrombocytopenia Pancytopenia (HCC) Macrocytic anemia Reason for Referral Status Reason Specialty Diagnoses / Procedures Referred By Contact Referred To Contact Pending Review Radiology Diagnoses Hepatic cirrhosis, unspecified hepatic cirrhosis type, unspecified whether ascites present (HCC) Thrombocytopenia (HCC) Pancytopenia (HCC) Procedures US Abdomen Complete Pacheco Thomas Jr., MD [address] [place] [id number] Specialty Diagnoses / Procedures Referred By Contac t Referred To Contact Endocrinology Diagnoses Hypoglycemia Elevated C peptide level Procedures CONSULT TO ENDOCRINOLOGY OFFICE/OUTPATIENT [facility] 60-74 MINUTES Cal Quijano MD [address] [place] [address] Referral ID Status Reason Start Date Expiration Date Visits Requested Visits Authorized [id number] Authorized PCP Requested Referral 12/07/2022 12/07/2023 1 1 Additional Source Comments (unrecognized sect ion and content) No Status Records FoundNo Status Records FoundNo Status Records FoundNo Status Records FoundNo Status Records Found INFORMATION SOURCE (unrecogn ized section and content) DATE CREATED AUTHOR AUTHOR'S ORGANIZ ATION 11/19/2018 [facility] DATE CREATED AUTHOR AUTHOR'S ORGANIZ ATION 12/05/2018 [facility] DATE CREATED AUTHOR AUTHOR'S ORGANIZ ATION 11/11/2019 [facility] DATE CREATED AUTHOR AUTHOR'S ORGANIZ ATION 09/05/2023 [facility] Reason for Visit (unrecogniz ed section and content) Status Reason Specialty Diagnoses / Procedures Referred By Contact Referred To Contact Pending Review Radiology Diagnoses Hepatic cirrhosis, unspecified hepatic cirrhosis type, unspecified whether ascites present (HCC) Thrombocytopenia (HCC) Pancytopenia (HCC) Procedures US Abdomen Complete Exten, Pacheco Newman Jr., MD [address] [place] [address] Reason Comments U/S RESULTS Reason Comments Thrombocytopenia Reason Comments BONEE MARROW REULTS Reason Comments Black stool since Tues Reason Comments Orders Reason Comments Imm/Inj Reason Comments Refill Request patient is out of me dication Reason Comments Results Medication Update Reason Onset Date Comments Refill Request 06/11/2022 Reason Comments Follow Up 6 month Reason Comments Low Blood Sugar Patient reports BS 1 30's in am but dropping a couple x to 64 and 57 at lunch time. Reason Comments Results Reason Comments Patient Update Reason Onset Date Comments Refill Request 02/04/2023 Reason Onset Date Comments Refill Request 03/04/2023 Source Comments (unrecognize d section and content) In the event this informatio n is protected by the Federal Confidentiality of Alcohol and Drug Abuse Patient Records regulations: The Federal rules restrict any use of the information to criminally investigate or prosecute any alcohol or drug abuse patient.[facility] the event this information is protected by the Federal Confidentiality of Alcohol and Drug Abuse Patient Records regulations: The Federal rules restrict any use of the information to criminally investigate or prosecute any alcohol or drug abuse patient.[facility] the event this information is protected by the Federal Confidentiality of Alcohol and Drug Abuse Patient Records regulations: The Federal rules restrict any use of the information to criminally investigate or prosecute any alcohol or drug abuse patient.[facility] Anderson[facility] the event this information is protected by the Federal Confidentiality of Alcohol and Drug Abuse Patient Records regulations: The Federal rules restrict any use of the information to criminally investigate or prosecute any alcohol or drug abuse patient.[facility] AndersonIn the event this information is protected by the Federal Confidentiality of Alcohol and Drug Abuse Patient Records regulations: The Federal rules restrict any use of the information to criminally investigate or prosecute any alcohol or drug abuse patient.[facility] AndersonIn the event this information is protected by the Federal Confidentiality of Alcohol and Drug Abuse Patient Records regulations: The Federal rules restrict any use of the information to criminally investigate or prosecute any alcohol or drug abuse patient.[facility] AndersonIn the event this information is protected by the Federal Confidentiality of Alcohol and Drug Abuse Patient Records regulations: The Federal rules restrict any use of the information to criminally investigate or prosecute any alcohol or drug abuse patient.[facility] AndersonIn the event this information is protected by the Federal Confidentiality of Alcohol and Drug Abuse Patient Records regulations: The Federal rules restrict any use of the information to criminally investigate or prosecute any alcohol or drug abuse patient.[facility] AndersonIn the event this information is protected by the Federal Confidentiality of Alcohol and Drug Abuse Patient Records regulations: The Federal rules restrict any use of the information to criminally investigate or prosecute any alcohol or drug abuse patient.[facility] AndersonIn the event this information is protected by the Federal Confidentiality of Alcohol and Drug Abuse Patient Records regulations: The Federal rules restrict any use of the information to criminally investigate or prosecute any alcohol or drug abuse patient.[facility] AndersonIn the event this information is protected by the Federal Confidentiality of Alcohol and Drug Abuse Patient Records regulations: The Federal rules restrict any use of the information to criminally investigate or prosecute any alcohol or drug abuse patient.[facility] AndersonIn the event this information is protected by the Federal Confidentiality of Alcohol and Drug Abuse Patient Records regulations: The Federal rules restrict any use of the information to criminally investigate or prosecute any alcohol or drug abuse patient.[facility] AndersonIn the event this information is protected by the Federal Confidentiality of Alcohol and Drug Abuse Patient Records regulations: The Federal rules restrict any use of the information to criminally investigate or prosecute any alcohol or drug abuse patient.[facility] Care Teams (unrecognized sec tion and content) Solar Mechanical Engineer Relationship Specialty Start Date End Date Cal Quijano MD [address] [place] [address] PCP - General Family Practice 01/26/21 Solar Mechanical Engineer Relationship Specialty Start Date End Date Cal Quijano MD [address] [place] [address] PCP - General Family Practice 01/26/21 Solar Mechanical Engineer Relationship Specialty Start Date End Date Cal Quijano MD [facility] [place] [address] PCP - General Family Practice 01/26/21 Solar Mechanical Engineer Relationship Specialty Start Date End Date Cal Quijano MD [facility] [place] [address] PCP - General Family Medicine 01/26/21 Solar Mechanical Engineer Relationship Specialty Start Date End Date Cal Quijano MD [address] [place] [address] PCP - General Family Medicine 01/26/21 Solar Mechanical Engineer Relationship Specialty Start Date End Date Cal Quijano MD [address] [facility] [place] [address] PCP - General Family Medicine 01/26/21 Solar Mechanical Engineer Relationship Specialty Start Date End Date Cal Quijano MD [address] [place] [address] PCP - General Family Medicine 01/26/21 Solar Mechanical Engineer Relationship Specialty Start Date End Date Cal Quijano MD [facility] [place] [address] PCP - General Family Medicine 01/26/21 Solar Mechanical Engineer Relationship Specialty Start Date End Date Cal Quijano MD [address] [place], [place] [id number] PCP - General Family [facility] 01/26/21 Solar Mechanical Engineer Relationship Specialty Start Date End Date Cal Quijano MD [address] [place], [place] [id number] PCP - General Family Medicine 01/26/21 FOR RECORDS PERTAINING TO PATIENTS WHO ARE OR HAVE BEEN ENROLLED IN A CHEMICAL DEPENDENCY/SUBSTANCEABUSE PROGRAM, SOME INFORMATION MAY BE OMITTED. This clinical summary was aggregated from multiple sources. Caution should be exercised in using it in the provision of clinical care. This summary normalizes information from multiple sources, and as a consequence, information in this document may materially change the coding, format and clinical context of patient data. In addition, data may be omitted in some cases. CLINICAL DECISIONS SHOULD BE BASED ON THE PRIMARY CLINICAL RECORDS. [facility]. provides no warranty or guarantee of the accuracy or completeness of information in this document.
[2023-09-26 12:39] LABS: Absolute Lymphocyte Count 1.28 X10^3/uL (0.83-4.51); Absolute Neutrophil Count 2.3 X10^3/uL (2.0-7.7); Basophil# 0.07 X10^3/uL; Basophil% 1.5 % (0-1); Eosinophil# 0.32 X10^3/uL; Hematocrit 38.4 % (40-54); Hemoglobin 13.2 g/dL (13.0-16.5); Lymphocyte # 1.28 X10^3/ul (0.83-4.51); Lymphocyte % 28.1 % (19-41); Mean Corp Hgb Conc 34.4 g/dL (32-36); Mean Platelet Vol. 11.6 fl (6.2-12.0); Monocyte# 0.55 X10^3/uL; Monocyte% 12.1 % (0-10); NRBC Flagged by Analyzer 0 % (0-5); Neutrophil # 2.33 X10^3/uL (2.7-7.7); Neutrophil % 51.1 % (47-70); Platelet Count 127 K/mm3 (150-450); RBC Distribution Width CV 13.7 % (11.6-14.6); RBC Distribution Width SD 48.9 fl (35.1-43.9); White Blood Count 4.6 K/mm3 (4.4-11.0)
[2023-09-26 12:46] LABS: International Normalized Ratio 1.2; Prothrombin Time (Protime)PT. 14.8 SECONDS (11.7-14.9)
[2023-09-26 13:37] LABS: ALB/GLOB Ratio 0.9 RATIO (0.9-2.4); AST(SGOT) 34 U/L (15-37); Alanine Aminotransfer ALT/SGPT 30 U/L (16-61); Albumin, Serum 3.4 g/dL (3.2-5.0); Alkaline Phosphatase 109 U/L (45-117); Anion Gap 5 (5-15); BUN 16 mg/dL (7-18); BUN/Creat Ratio 14.4 RATIO (10-20); Calcium,Total 9.4 mg/dL (8.5-10.1); Chloride 106 mmol/L (98-107); Creatinine, Serum 1.11 mg/dL (0.70-1.30); EST Glomerular Filtration Rate 70 mL/min (>60); Est Glom Filt Rate - Afr Amer 85 mL/min (>60); Globulin 3.9 g/dL (2.2-4.2); Glucose 81 mg/dL (74-106); Magnesium 2.1 mg/dL (1.6-2.6); Phosphorus 2.8 mg/dL (2.5-4.9); Potassium 4.1 mmol/L (3.5-5.1); Protein, Total 7.3 g/dL (6.4-8.2); Sodium Level 138 mmol/L (136-145)
== END | disposition home or self-care (01) ==
LOC: LAB 11:12
PROVIDERS: PCP Family Medicine; Referring Provider Internal Medicine; Visit Provider Internal Medicine
DX: K75.81 Nonalcoholic steatohepatitis (NASH) (principal); K74.60 Unspecified cirrhosis of liver
CPT/HCPCS: 36415; 80053; 83735; 84100; 85025; 85610

== ENCOUNTER → 2023-12-31 | Outpatient (CLI) | payer MEDICARE, SELFPAY ==
[2023-12-31 10:29] LABS: Absolute Neutrophil Count 1.4 X10^3/uL (2.0-7.7); Basophil# 0.04 X10^3/uL; Basophil% 1.5 % (0-1); Eosinophils% 7.4 % (0-5); Hematocrit 37.3 % (40-54); Hemoglobin 13.1 g/dL (13.0-16.5); Lymphocyte % 29.7 % (19-41); Mean Corp Hgb Conc 35.1 g/dL (32-36); Mean Corpuscular Hgb 33.2 pg (27.0-32.0); Mean Corpuscular Volume 94.7 fL (80-94); Mean Platelet Vol. 10.8 fl (6.2-12.0); Monocyte# 0.26 X10^3/uL; Monocyte% 9.7 % (0-10); NRBC Flagged by Analyzer 0 % (0-5); Neutrophil # 1.39 X10^3/uL (2.7-7.7); Neutrophil % 51.7 % (47-70); Platelet Count 100 K/mm3 (150-450); RBC Distribution Width SD 47.9 fl (35.1-43.9); Red Blood Count 3.94 M/mm3 (4.6-6.2); White Blood Count 2.7 K/mm3 (4.4-11.0)
[2023-12-31 10:35] LABS: International Normalized Ratio 1.1; Prothrombin Time (Protime)PT. 14.5 SECONDS (11.7-14.9)
[2023-12-31 11:12] LABS: ALB/GLOB Ratio 0.8 RATIO (0.9-2.4); AST(SGOT) 45 U/L (15-37); Alanine Aminotransfer ALT/SGPT 36 U/L (16-61); Albumin, Serum 3.3 g/dL (3.2-5.0); Alkaline Phosphatase 121 U/L (45-117); Anion Gap 3 (5-15); BUN 14 mg/dL (7-18); BUN/Creat Ratio 11.5 RATIO (10-20); Calcium,Total 9.2 mg/dL (8.5-10.1); Chloride 108 mmol/L (98-107); Cholesterol 182 mg/dL (200); Creatinine, Serum 1.22 mg/dL (0.70-1.30); EST Glomerular Filtration Rate 63 mL/min (>60); Est Glom Filt Rate - Afr Amer 76 mL/min (>60); Globulin 3.9 g/dL (2.2-4.2); Glucose 154 mg/dL (74-106); High Density Lipoprotein 90 mg/dL; Potassium 3.9 mmol/L (3.5-5.1); Protein, Total 7.2 g/dL (6.4-8.2); Sodium Level 138 mmol/L (136-145); Triglycerides 59 mg/dL; Very Low Density Lipoprotein 12 mg/dL (5-40)
[2023-12-31 11:38] LABS: Hemoglobin A1c 4.8 % (3.8-5.6)
== END | disposition home or self-care (01) ==
LOC: LAB 10:02
PROVIDERS: PCP Family Medicine; Referring Provider Internal Medicine; Visit Provider Internal Medicine
DX: I85.00 Esophageal varices without bleeding (principal); I85.11 Secondary esophageal varices with bleeding; K74.60 Unspecified cirrhosis of liver; K75.81 Nonalcoholic steatohepatitis (NASH)
CPT/HCPCS: 36415; 80053; 80061; 82140; 83036; 85025; 85610

== ENCOUNTER 2024-01-14 12:57 | Day surgery (SDC) | payer MEDICARE, SELFPAY ==
[2024-01-14 13:23] VITALS: BP 126/80; PULSE 60; RESP 16; TEMP 36.3; O2SAT 100; BMI 27.1
[2024-01-14] MEDS: Lactated Ringers 1,000 ML 15 ML IV (13:25)
--- NOTE | 2024-01-14 14:15 | IMM_PTH ---
PATIENT: MERCEDES SHEPARD LOC: EN U#:[id number] AGE/SX: 68/M ROOM: RE01/14/[address]: Dr. Jerry Leon DO : 1955 BED: DIS: 01/14/2024 SPEC #: [id number] RECD: 01/15/24 15:01 STATUS: BATOOL RELilly #: [id number] JENNIFER: 01/14/24 14:[address]: Jerry Leon DEPT: IMMUNOHISTOCHEMISTRY RECD BY: Alfred Mckeon ENTERED: 01/15/24 15:02 SP TYPE: IMMUNO OTHR DR: Dr. 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 Localization is made via biotin free immunoperoxidase method. Appropriate controls are performed and reacted as expected. Results on target cell population are indicated in the following table: RESULTS: ANTIBODY / CLONE RESULT Block A H Pylori (polyclonal) negative These tests were developed and their performance characteristics determined by [facility]. They may not have been cleared or approved by the U.S. Food and Drug Administration. The FDA has determined that such clearance or approval is not necessary. The above immunohistochemical/dualISH markers are ordered and reviewed by the Pathologist. INTERPRETATION: A. Pylorus biopsy: Negative for Helicobacter pylori organisms. LOS/ 01/16/2024
--- NOTE | 2024-01-14 14:15 | COLBX_PTH ---
PATIENT: MERCEDES SHEPARD LOC: EN U#:[id number] AGE/SX: 68/M ROOM: RE01/14/[address]: Dr. Jerry Leon DO : 1955 BED: DIS: 01/14/2024 SPEC #: [id number] RECD: 01/14/24 17:50 STATUS: BATOOL AYANNA #: [id number] JENNIFER: 01/14/24 14:[address]: Jerry Leon DEPT: SURGICAL PATHOLOGY RECD BY: Harley Wright ENTERED: 01/15/24 12:00 SP TYPE: COLON BX OTHR DR: Dr. 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 Pylorus, biopsy: Mild gastritis. See microscopic description and comment. B. Terminal ileum, biopsy: Fragments of small intestinal mucosa, no pathologic diagnosis. SJ/ 01/16/2024 COMMENT A. The results of immunohistochemistry for Helicobacter pylori will be reported separately ([id number]). MICROSCOPIC DESCRIPTION Slides are reviewed. A. The specimen shows fragments of gastric mucosa with chronic inflammatory cell infiltrates in the lamina propria consisting of lymphocytes and plasma cells, consistent with mild chronic gastritis. GROSS DESCRIPTION A. Received in fixative is one container labeled with the patient's name and designated Pylorus biopsy. The specimen consists of two irregular fragments of light bangura soft tissue that in aggregate measure 0.6 x 0.3 x 0.1 cm. The specimen is totally submitted in one cassette. B. Received in fixative is one container labeled with the patient's name and designated Terminal ileum biopsy. The specimen consists of two irregular fragments of light bangura soft tissue that in aggregate measure 0.6 x 0.3 x 0.1 cm. The specimen is totally submitted in one cassette. SJ/mr 01/15/2024 TC:3 CPT:69678m9
--- NOTE | 2024-01-14 14:21 | HP.PCM_ITS ---
History and Physical Date of Admission: 01/14/24 Chief Complaint: Follow-up cirrhosis Details: MERCEDES SHEPARD, is a 68 M who presents to the office today for follow up. *[facility] hospitalization 06.06.21-06.10.21 with presentation for emesis and dark/bloody stools and was subsequently admitted. GI consulted 06.06.21 for anemia, syncope, tachycardia, GIB, bicytopenia and MARIA DEL ROSARIO. EGD performed same day. Blood transfusions were performed during admission for hemoglobin requiring intervention. ?EGD 06.06.21 finding recently bleeding Grade II esophageal varices, banded; portal hypertensive gastropathy with a subsequent new diagnosis of liver cirrhosis. ?US 06.06.21 hepatic measurement 15.8cm with irregularity along margins with cirrhotic changes. OV 06.13.21 cirrhosis, EGD. Start nadolol. Stop lactulose r/t loose stools. ?US RUQ 06.24.21 hepatic measurement 15.8 with nodular contour; recanalization of umbilical vein. OV 06.28.21 varices, EGD. Cirrhosis/Ascites continue lasix spironolactone. ?EGD 07.19.21 nonbleeding grade II esophageal varices, banded; portal HTN gastropathy; small hiatal hernia. OV 08.10.21 gynecomastia, likely secondary to spironolactone, stop. Varices, repeat EGD. ? EGD 09.21.21 finding small esophageal varices; portal hypertensive gastropathy; esophageal changes for Thompson?s esophagus. Biopsy found esophageal inflammation ?without metaplasia. ?OV 10.02.21 increased BLE edema. Spironolactone stopped as ordered. Lasix stop ped of own accord r/t nocturnal urination. Cirrhosis/ascites/varices, biochemical workup, liver biopsy, imaging. Start Lasix 10mg ? Liver biopsy 10.03.21 performed confirmed cirrhosis secondary to RENDON diagnosis. ? Elastography 09.14.21 35kPa ?CT abd/pel 09.15.21 hepatic nodularity, cirrhosis; recanalization of umbilical vein; multiple GE and splenic varices; gallbladder wall thickening r/t cirrhosis; mild ascites. OV 11.08.21 lasix 10mg not taken r/t nocturnal urination, BLE continues. Nadolol and PPI continue. Cirrhosis/ascites/varices, biochemical workup. Recommend weight loss, goal 200lbs. OV 01.05.22 weight 198lbs. Cirrhosis/ascites/varices, biochemical workup, EGD 4-6months, continue Lasix ?[facility] liver transplant referral sent 01.17.22. MELD has not progressed enough to warrant consultation. OV 03.19.22 fatigued with daytime somnolence and confusion. Continues with lactulose, Lasix 40mg and PPI BID. Cirrhosis/ascites/varices, Start xifaxan and iron OV 05.30.22 improved since LV; BLE continues without change. Weight 198lbs. Cirrhosis/ascites/varices/hyperammonemia decrease lactulose to 20mLQD, PPI to QD, continues Lasix 10mg, nadolol, iron and Xifaxan. Biochemical workup OV 10.30.22 current weight 197lbs. Continues to have BLE which is improved and is more intermittent than previously. Continues with Lasix 10mg QD, nadolol QD, lactulose BID, iron BID, PPI BID, Xifaxan BID. No confusion/sleep disturbance/balance difficulties. Reports that he is feeling great. OV 02.01.23 No concerns. Sees Endocrinology Dr. Coulter for low glucose episodes. Takes Lactulose BID and Xifaxan. Nadalol and Pantoprazole. Denies sleeping issues, bleeding, jaundice, pruritis. confusion, ascites or thu. ?EGD 05.28.23 Small <5mm esophageal varicies, portal hypertensive gastropathy- ?Mild Gastritis ?MELD: ?Child Christine ?Platelet ? INR ? Ammonia ? AST-ALT-AP ? 06.13.21 ? ?19 ? C ?168 ?1.4 ?- ?74-35-106 09.14.21 ? ?13 ? 107 ? ? ? 1.4 ?- ? 48-33-96 ?H: Ferritin 451, CRP 9.02, VIRAJ 83, cANCA 1:20. LDH, Copper, KRISTY comp, ASM, AMA WNL 03.09.22 ? ?11 ?B ?91 ? 1.4 ?118 ?42-32-126 ?H: IgG 1640, IgA 735, IgE 633. IgM WNL. 05.18.22 ? ?12 ?B ?87 ? 1.3 ?100 ?41-33-122 ?ESR, LDH, CRP WNL 08.15.22 ? ?12 ?B ?85 ? 1.3 ?- ? 38-36-98 ?AFP 4.2WNL ..22 ? ?12 ?B ?- ?1.3 ?63 ?45-41-130 01.30.23 ? ?12 ?B ? 105 ?1.3 ?64 ?47-42-113 ?ESR, LDH, CRP WNL 06.02.23 ? ?11 ?A ? 93 ?1.2 ?35 ? 58-48-145 ? 01.25.24 ? ?10 ?A ?127 ?1.2 12.31.23 ? ?10 ?A ?100 ?1.1 OV 10.30.23 Pt doing very well since last visit. Denies abdominal pain, HB, confusion. Has one solid BM a day. Stable on medications prescribed by this candido ward. ?Patient complaining of leg swelling but he states he has to stop several times on his drive for bathroom because of Lasix. ?His PCP decrease the dose to 20 mg daily. ?Complain of cramps in the legs. ?No confusion or symptoms of encephalopath US RUQ 11.2.23- Liver measures 15.6 cm, fatty infiltration of liver, lobular contour of liver, right renal cyst OV 1.29.24- Pt reports daily headaches and nausea since stopping Losartan. ?Patient complaining of headache mainly in the neck and occipital region. ?He said he had some cold symptoms and feels some sinus congestion but no runny nose or drainage. ?No fever. ?Has not had any abdominal pain, dizziness, confusion or swelling. No change in BM. Has not had any cramping in legs. OV 5.7.24- Pt better since last visit. Has not had anymore headaches. No abdominal pain, dizziness, confusion or swelling. BM are normal. No other concerns. ROS Const Constitutional: No fatigue, fever(s) or weight change ENT ENT: No difficulty swallowing Gastro GI: No abdominal pain, belching, bloating, change in bowel habits, change in stool character, coffee ground emesis, constipation, cramping, diarrhea, heartburn, difficulty swallowing, feeling full early, excessive flatus, incontinent of stools, Vomiting blood/hematemesis, Blood in stool, loose stools, Black,tarry stools, nausea/dyspepsia, pain with swallowing, vomiting or other Musc Musculoskeletal: Positive for back pain and stiffness; No joint pain Skin Skin: No yellowing of the eye or itchy eyes Psych Psychiatric: No anxiety and No depression Endo Endocrine: No fatigue or weight change Aller/Imm Allergy/Immunologic: No itchy eyes Justin/Lymp Hematologic/Lymphatic: Positive for easy bleeding and easy bruising Exam Const General: cooperative, no acute distress and well developed Nutritional Appearance: average body habitus Orientation: alert, awake and oriented x3 Other: No significant change in body weight. Gain of 1 pound. HENMT Head: normocephalic and atraumatic Nose: external nose normal Face and sinus: normal facial exam Mouth: moist mucous membranes Eyes Pupils: PERRL EOM: EOM intact bilaterally Neck Neck: normal visual inspection, no meningeal signs and trachea midline Carotids: no bruits Chest Chest palpation & inspection: normal inspection of the chest Resp Effort & Inspection: normal respiratory effort and symmetric chest movement Auscultation: Bilateral: Clear to Auscultation Cardio Palpation: normal PMI Rate: regular rate Rhythm: regular rhythm Heart Sounds: S1 normal and S2 normal GI Auscultation: normal bowel sounds Percussion: normal to percussion Palpation: soft, no hepatosplenomegaly and no guarding Other: No shifting dullness or clinically palpable ascites. Spleen edge palpable. Liver not enlarged General: bimanual renal exam normal bilaterally, bladder normal to inspection and bladder normal to palpation Musc Musculoskeletal: No joint tenderness, joint redness, joint warmth or decreased range of motion Thoracic/Lumbar Spine: thor and lumb spine abnorm to inspection Skin General: rashes and/or lesions noted, turgor normal and no erythema Wounds: wound noted Neuro General: patient alert, patient awake, patient oriented x3 and no focal motor deficits Speech: speech normal Motor: muscle tone normal throughout Extrem General: normal exam except as noted Other: No pitting edema Psych Appearance: grossly normal Mood: congruent mood Affect: normal affect Attitude: cooperative Assessment and Plan Assessment and Plan (1) 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 Elastography in September 14, [address] scan with and without IV contrast shows cirrhotic liver with evidence of portal hypertension with small volume ascites recannulization of umbilical vein and varices. No LI- RADS 5 lesions noted. Liver ultrasound and AFP reviewed. Liver ultrasound shows fatty infiltration with lobulated contour consistent with cirrhosis. No demonstrated mass. Recannulization of umbilical vein consistent with cirrhosis. No pancreatic mass. aFP 4.6. MELD sodium score is 10, child A score.. Ascites and leg swelling well- controlled on furosemide 20 mg daily and spironolactone 25 mg daily. Will need repeat EGD in 3 months. No recent GI bleed. Had a small epistaxis from blowing nose today in the morning. Labs ordered prior to next visit. MELD sodium score 10, based on labs of 12/31/2019. Liver ultrasound with elastography including spleen ordered Follow-up visit in 3 months. (2) Varices, esophageal: Status: Chronic Qualifiers: Esophageal varices bleeding: with bleeding Esophageal varices type: secondary Qualified Code(s): I85.11 - Secondary esophageal varices with bleeding Plan: EGD 05/28/2023 Small (< 5 mm) esophageal varices. - Portal hypertensive gastropathy. Biopsied. - No gross lesions in the first portion of the duodenum. continue nadolol 20 mg daily. On PPI pantoprazole 40 mg twice daily changed to 40 mg once daily. I have examined the patient and the H&P has been reviewed. There are no clinical changes since date of exam.
[2024-01-14 14:50] VITALS: BP 126/80; BP 87/52; PULSE 66; RESP 16; TEMP 36.4; O2SAT 100
[2024-01-14 14:55] VITALS: BP 126/80; BP 88/63; PULSE 65; RESP 16; O2SAT 100
--- NOTE | 2024-01-14 14:55 | OP.EGD_ITS ---
Patient Name: Julia Salcido Procedure Date: 01/14/2024 2:20 PM Date of : 1955 Age: 68 Procedure: Upper GI endoscopy Indications: Follow-up of esophageal varices Providers: Jerry Leon DO Referring MD: Anthony Quijano Medicines: Monitored Anesthesia Care Patient Profile: This is a 68 year old male. Refer to note in patient chart for documentation of history and physical. Patient has symptoms. Complications: No immediate complications. Procedure: Pre-Anesthesia Assessment: - Prior to the procedure, a History and Physical was performed, and patient medications and allergies were reviewed. The patient is competent. The risks and benefits of the procedure and the sedation options and risks were discussed with the patient. All questions were answered and informed consent was obtained. Patient identification and proposed procedure were verified by the physician in the pre-procedure area. Mental Status Examination: alert and oriented. Airway Examination: normal oropharyngeal airway and neck mobility. Respiratory Examination: clear to auscultation. CV Examination: normal. Prophylactic Antibiotics: The patient does not require prophylactic antibiotics. Prior Anticoagulants: The patient has taken no anticoagulant or antiplatelet agents. ASA Grade Assessment: III - A patient with severe systemic disease. After reviewing the risks and benefits, the patient was deemed in satisfactory condition to undergo the procedure. The anesthesia plan was to use monitored anesthesia care (MAC). Immediately prior to administration of medications, the patient was re-assessed for adequacy to receive sedatives. The heart rate, respiratory rate, oxygen saturations, blood pressure, adequacy of pulmonary ventilation, and response to care were monitored throughout the procedure. The physical status of the patient was re-assessed after the procedure. After obtaining informed consent, the endoscope was passed under direct vision. Throughout the procedure, the patient's blood pressure, pulse, and oxygen saturations were monitored continuously. The Colonoscope was introduced through the mouth, and advanced to the second part of duodenum. The upper GI endoscopy was accomplished without difficulty. The patient tolerated the procedure well. Scope In: 2:30:22 PM Scope Out: 2:33:47 PM Total Procedure Duration Time 0 hours 3 minutes 25 seconds Findings: Small (< 5 mm) varices were found in the lower third of the esophagus. Mild portal hypertensive gastropathy was found in the gastric body. A few localized 5 mm erosions with no stigmata of recent bleeding were found in the gastric antrum. Biopsies were taken with a cold forceps for histology. Verification of patient identification for the specimen was done. Estimated blood loss was minimal. Patchy mildly erythematous mucosa without active bleeding and with no stigmata of bleeding was found in the duodenal bulb. Biopsies were taken with a cold forceps for histology. Verification of patient identification for the specimen was done. Estimated blood loss was minimal. Impression: - Small (< 5 mm) esophageal varices. - Portal hypertensive gastropathy. - Erosive gastropathy with no stigmata of recent bleeding. Biopsied. - Erythematous duodenopathy. Biopsied. Recommendation: - Discharge patient to home. - Resume previous diet. - Continue present medications. - Await pathology results. Procedure Code(s): --- Professional --- 20527, Esophagogastroduodenoscopy, flexible, transoral; with biopsy, single or multiple CPT copyright 2021 [employer]. All rights reserved. The codes documented in this report are preliminary and upon dentures lab technician review may be revised to meet current compliance requirements. Jerry Leon DO 01/14/2024 2:55:18 PM This report has been signed electronically. Number of Addenda: 0 Note Initiated On: 01/14/2024 2:20 PM
--- NOTE | 2024-01-14 14:55 | OP.CCLET_ITS ---
01/14/2024 Anthony Quijano Re : Upper GI endoscopy procedure for Julia Salcido Alvinar Samm This procedure was performed on Sunday, January 14, 2024. My impressions and recommendations are as follows: Impressions : - Small (< 5 mm) esophageal varices. - Portal hypertensive gastropathy. - Erosive gastropathy with no stigmata of recent bleeding. Biopsied. - Erythematous duodenopathy. Biopsied. Recommendations : - Discharge patient to home. - Resume previous diet. - Continue present medications. - Await pathology results. My findings are described in the full procedure note, which is enclosed. If I can be of further assistance, please feel free to contact me at . Sincerely, Jerry Leon, 01/14/2024 2:55:18 PM This report has been signed electronically.
--- NOTE | 2024-01-14 14:59 | OP.CCLET_ITS ---
01/14/2024 Anthony Quijano Re : Colonoscopy procedure for Julia Talbot Samm This procedure was performed on Sunday, January 14, 2024. My impressions and recommendations are as follows: Impressions : - Diverticulosis in the sigmoid colon. - The examination was otherwise normal on direct and retroflexion views. - Mild inflammation was found in the ileum secondary to ileitis. Biopsied. Recommendations : - Discharge patient to home. - Resume previous diet. - Continue present medications. - Await pathology results. - Repeat colonoscopy in 5 years for surveillance. My findings are described in the full procedure note, which is enclosed. If I can be of further assistance, please feel free to contact me at . Sincerely, Jerry Leon, 01/14/2024 2:59:23 PM This report has been signed electronically.
--- NOTE | 2024-01-14 14:59 | OP.COLON_ITS ---
Patient Name: Julia Salcido Procedure Date: 01/14/2024 2:33 PM Date of : 1955 Age: 68 Procedure: Colonoscopy Indications: Screening for colorectal malignant neoplasm Providers: Jerry Leon DO Referring MD: Anthony Quijano Medicines: Monitored Anesthesia Care Patient Profile: This is a 68 year old male. Refer to note in patient chart for documentation of history and physical. Patient has symptoms. Last Colonoscopy: date unknown. Unable to locate last colonoscopy report. Complications: No immediate complications. Procedure: Pre-Anesthesia Assessment: - Prior to the procedure, a History and Physical was performed, and patient medications and allergies were reviewed. The patient is competent. The risks and benefits of the procedure and the sedation options and risks were discussed with the patient. All questions were answered and informed consent was obtained. Patient identification and proposed procedure were verified by the physician in the pre-procedure area. Mental Status Examination: alert and oriented. Airway Examination: normal oropharyngeal airway and neck mobility. Respiratory Examination: clear to auscultation. CV Examination: normal. Prophylactic Antibiotics: The patient does not require prophylactic antibiotics. Prior Anticoagulants: The patient has taken no anticoagulant or antiplatelet agents. ASA Grade Assessment: III - A patient with severe systemic disease. After reviewing the risks and benefits, the patient was deemed in satisfactory condition to undergo the procedure. The anesthesia plan was to use monitored anesthesia care (MAC). Immediately prior to administration of medications, the patient was re-assessed for adequacy to receive sedatives. The heart rate, respiratory rate, oxygen saturations, blood pressure, adequacy of pulmonary ventilation, and response to care were monitored throughout the procedure. The physical status of the patient was re-assessed after the procedure. After I obtained informed consent, the scope was passed under direct vision. Throughout the procedure, the patient's blood pressure, pulse, and oxygen saturations were monitored continuously. The Colonoscope was introduced through the anus and advanced to 8 cm into the ileum. The colonoscopy was performed without difficulty. The patient tolerated the procedure well. The quality of the bowel preparation was adequate. The terminal ileum, ileocecal valve, appendiceal orifice, and rectum were photographed. Scope In: 2:36:23 PM Scope Withdrawal Time 0 hours 6 minutes 12 seconds Scope Out: 2:45:24 PM Total Procedure Duration Time 0 hours 9 minutes 1 second Findings: The perianal and digital rectal examinations were normal. A single small and large-mouthed diverticulum was found in the sigmoid colon. The exam was otherwise without abnormality on direct and retroflexion views. Patchy mild inflammation characterized by erosions and erythema was found in the terminal ileum. Biopsies were taken with a cold forceps for histology. Verification of patient identification for the specimen was done. Estimated blood loss was minimal. Impression: - Diverticulosis in the sigmoid colon. - The examination was otherwise normal on direct and retroflexion views. - Mild inflammation was found in the ileum secondary to ileitis. Biopsied. Recommendation: - Discharge patient to home. - Resume previous diet. - Continue present medications. - Await pathology results. - Repeat colonoscopy in 5 years for surveillance. Procedure Code(s): --- Professional --- 15305, Colonoscopy, flexible; with biopsy, single or multiple CPT copyright 2021 [employer] [place] [employer]. All rights reserved. The codes documented in this report are preliminary and upon lead net software developer review may be revised to meet current compliance requirements. Jerry Leon DO 01/14/2024 2:59:23 PM This report has been signed electronically. Number of Addenda: 0 Note Initiated On: 01/14/2024 2:33 PM
[2024-01-14 15:00] VITALS: BP 108/70; BP 126/80; PULSE 65; RESP 16; O2SAT 99
[2024-01-14 15:05] VITALS: BP 111/72; BP 126/80; PULSE 66; RESP 16; TEMP 36.4; O2SAT 99
[2024-01-14 15:10] VITALS: BP 126/80
== END 2024-01-14 15:36 | disposition home or self-care (01) ==
LOC: EN 12:58 → AC 13:01
PROVIDERS: PCP Family Medicine; Referring Provider Family Medicine; Visit Provider Internal Medicine Gastroenterology
PROC: 0DJD8ZZ Inspection of Lower Intestinal Tract, Via Natural or Artificial Opening Endoscopic (ICD-10-PCS; CPT 45378; principal; 2024-01-14 14:10)
DX: K74.69 Other cirrhosis of liver (principal); I85.00 Esophageal varices without bleeding; K76.6 Portal hypertension; I85.11 Secondary esophageal varices with bleeding; K75.81 Nonalcoholic steatohepatitis (NASH); K57.30 Diverticulosis of large intestine without perforation or abscess without bleeding; K29.60 Other gastritis without bleeding; K52.9 Noninfective gastroenteritis and colitis, unspecified
CPT/HCPCS: 43239; 45380; 88305; 88342; J7120; J2405

== ENCOUNTER → 2024-04-08 | Outpatient (CLI) | payer MEDICARE, SELFPAY ==
--- NOTE | 2024-04-08 08:56 | US_ITS ---
STUDY: ABDOMINAL ULTRASOUND - RIGHT UPPER QUADRANT; ELASTOGRAPHY REASON FOR VISIT: Male, 68 years old. Cirrhosis. RENDON TECHNIQUE: Ultrasound evaluation of the right upper quadrant was performed with real-time and static aguilar-scale imaging. Point quantification shear wave elastography was performed ([employer]). TECHNICAL QUALITY: Adequate. COMPARISON: Comparison is made with prior study July 04, 2023. FINDINGS: Liver: The liver measures 14.4 cm. There is a heterogeneous echogenicity of the liver. The bile ducts are within normal limits. There is hepatic color flow. The direction of portal flow is hepatopetal. There is no demonstrated mass lesion. Median liver stiffness measured 20.2 kPa. Gallbladder: Normal distended gallbladder. The gallbladder wall measures 2.9 mm. There is a negative sonographic Simms''s sign. There is no pericholecystic fluid. There are no gallstones. Common Bile Duct (C.B.D.): The common bile duct measures 6.2 mm. Pancreas: There is normal echogenicity of the visualized pancreas. There is no demonstrated pancreatic mass or cyst. Right Kidney: Normal size of the right kidney. The right kidney measures 10.2 cm x 3.9 cm x 4.4 cm. Normal renal cortex. The right cortex measures 1.4 cm. There is a 1.3 cm x 0.9 cm x 0.7 cm cyst. There is no right hydronephrosis. Splenomegaly. The spleen measures 13.8 cm x 5.9 cm x 6 cm. Calcified granulomas are seen within US/ABD Limited w/ Elastography IMPRESSION: 1. Liver stiffness measures 20.2 kPa compatible with F3-F4 (Moderate to severe liver fibrosis) Metavir score. Electronically Signed: Nito Rodriguez MD at 12:29 EDT ,
[2024-04-08 11:09] LABS: Absolute Lymphocyte Count 0.93 X10^3/uL (0.83-4.51); Absolute Neutrophil Count 1.8 X10^3/uL (2.0-7.7); Basophil# 0.04 X10^3/uL; Basophil% 1.2 % (0-1); Eosinophils% 6.2 % (0-5); Hemoglobin 13.5 g/dL (13.0-16.5); Lymphocyte # 0.93 X10^3/ul (0.83-4.51); Lymphocyte % 28.9 % (19-41); Mean Corp Hgb Conc 34.6 g/dL (32-36); Mean Corpuscular Hgb 32.8 pg (27.0-32.0); Mean Corpuscular Volume 94.9 fL (80-94); Mean Platelet Vol. 11.3 fl (6.2-12.0); Monocyte% 9.3 % (0-10); NRBC Flagged by Analyzer 0 % (0-5); Neutrophil # 1.75 X10^3/uL (2.7-7.7); Neutrophil % 54.4 % (47-70); Platelet Count 111 K/mm3 (150-450); RBC Distribution Width CV 13.9 % (11.6-14.6); RBC Distribution Width SD 48.4 fl (35.1-43.9); Red Blood Count 4.11 M/mm3 (4.6-6.2); White Blood Count 3.2 K/mm3 (4.4-11.0)
[2024-04-08 11:12] LABS: International Normalized Ratio 1.1; Prothrombin Time (Protime)PT. 14.4 SECONDS (11.7-14.9)
[2024-04-08 11:23] LABS: Vitamin D,25 Hydroxy 22.2 ng/mL
[2024-04-08 11:35] LABS: ALB/GLOB Ratio 0.9 RATIO (0.9-2.4); AST(SGOT) 49 U/L (15-37); Alanine Aminotransfer ALT/SGPT 45 U/L (16-61); Albumin, Serum 3.5 g/dL (3.2-5.0); Alkaline Phosphatase 95 U/L (45-117); Anion Gap 5 (5-15); BUN 16 mg/dL (7-18); BUN/Creat Ratio 13.3 RATIO (10-20); Calcium,Total 9.2 mg/dL (8.5-10.1); Chloride 106 mmol/L (98-107); EST Glomerular Filtration Rate 64 mL/min (>60); Est Glom Filt Rate - Afr Amer 77 mL/min (>60); Globulin 4.1 g/dL (2.2-4.2); Glucose 112 mg/dL (74-106); Potassium 3.9 mmol/L (3.5-5.1); Protein, Total 7.6 g/dL (6.4-8.2); Sodium Level 140 mmol/L (136-145); Thyroid Stim Hormone (TSH) 1.16 uIU/mL (0.358-3.74)
[2024-04-09 04:07] LABS: AFP, Tumor Marker 4.7 ng/mL (0.0-8.4)
== END | disposition home or self-care (01) ==
LOC: US 08:52
PROVIDERS: PCP Family Medicine; Referring Provider Internal Medicine; Visit Provider Internal Medicine
DX: I85.00 Esophageal varices without bleeding (principal); I85.11 Secondary esophageal varices with bleeding; K70.31 Alcoholic cirrhosis of liver with ascites; K75.81 Nonalcoholic steatohepatitis (NASH)
CPT/HCPCS: 36415; 76705; 76981; 80053; 82105; 82306; 84443; 85025; 85610

== ENCOUNTER → 2024-08-11 | Outpatient (CLI) | payer MEDICARE, SELFPAY ==
[2024-08-11 12:39] LABS: Absolute Lymphocyte Count 1.03 X10^3/uL (0.83-4.51); Absolute Neutrophil Count 1.9 X10^3/uL (2.0-7.7); Basophil# 0.05 X10^3/uL; Basophil% 1.3 % (0-1); Eosinophil# 0.25 X10^3/uL; Eosinophils% 6.7 % (0-5); Hematocrit 39.5 % (40-54); Hemoglobin 13.9 g/dL (13.0-16.5); Lymphocyte # 1.03 X10^3/ul (0.83-4.51); Lymphocyte % 27.8 % (19-41); Mean Corp Hgb Conc 35.2 g/dL (32-36); Mean Corpuscular Hgb 33.4 pg (27.0-32.0); Mean Platelet Vol. 11.1 fl (6.2-12.0); Monocyte# 0.44 X10^3/uL; Monocyte% 11.9 % (0-10); NRBC Flagged by Analyzer 0 % (0-5); Neutrophil # 1.94 X10^3/uL (2.7-7.7); Neutrophil % 52.3 % (47-70); Platelet Count 130 K/mm3 (150-450); RBC Distribution Width SD 48.1 fl (35.1-43.9); Red Blood Count 4.16 M/mm3 (4.6-6.2); White Blood Count 3.7 K/mm3 (4.4-11.0)
[2024-08-11 12:56] LABS: International Normalized Ratio 1.2; Prothrombin Time (Protime)PT. 15.4 SECONDS (11.7-14.9)
[2024-08-11 14:16] LABS: ALB/GLOB Ratio 0.9 RATIO (0.9-2.4); AST(SGOT) 40 U/L (15-37); Alanine Aminotransfer ALT/SGPT 40 U/L (16-61); Albumin, Serum 3.7 g/dL (3.2-5.0); Alkaline Phosphatase 128 U/L (45-117); Anion Gap 7 (5-15); BUN 13 mg/dL (7-18); BUN/Creat Ratio 9.9 RATIO (10-20); Bilirubin, Direct 0.49 mg/dL (0.00-0.30); CRP < 2.90 mg/L (0.0-3.0); Chloride 104 mmol/L (98-107); Creatinine, Serum 1.31 mg/dL (0.70-1.30); EST Glomerular Filtration Rate 58 mL/min (>60); Est Glom Filt Rate - Afr Amer 70 mL/min (>60); Globulin 4.1 g/dL (2.2-4.2); Glucose 116 mg/dL (74-106); Potassium 3.7 mmol/L (3.5-5.1); Protein, Total 7.8 g/dL (6.4-8.2); Sodium Level 138 mmol/L (136-145)
[2024-08-12 16:06] LABS: ANTINUCLEAR ANTIBODIES DIRECT Negative (Negative); Anti-Mitochondrial AB <20.0 Units (0.0-20.0)
[2024-08-17 09:22] LABS: AFP, Tumor Marker 4.6 ng/mL (0.0-8.4); Albumin 3.8 g/dL (2.9-4.4); Alpha-1-Globulins 0.2 g/dL (0.0-0.4); Alpha-2-Globulins 0.7 g/dL (0.4-1.0); Anti-Smooth Muscle ABS 5 Units (0-19); Cytoplasmic Ab (C-ANCA) 1:40 titer (Neg:<1:20); Endomysial Antibody IgA Negative (Negative); Gamma Globulin 1.4 g/dL (0.4-1.8); IgG, Quant 1431 mg/dL (603-1613); Immunoglobulin A 531 mg/dL (61-437); Immunoglobulin E 577 IU/mL (6-495); Immunoglobulin G, Subclass 1 699 mg/dL (248-810); Immunoglobulin G, Subclass 2 483 mg/dL (130-555); Immunoglobulin G, Subclass 3 114 mg/dL (15-102); Immunoglobulin G, Subclass 4 29 mg/dL (2-96); Immunoglobulin M 107 mg/dL (20-172); PROEL- TOTAL PROTEIN 7.2 g/dL (6.0-8.5); Perinuclear Ab (P-ANCA) <1:20 titer (Neg:<1:20); t-Transglutaminase IgA <2 U/mL (0-3)
== END | disposition home or self-care (01) ==
LOC: LAB 11:31
PROVIDERS: PCP Family Medicine; Referring Provider Internal Medicine; Visit Provider Internal Medicine
DX: K74.60 Unspecified cirrhosis of liver (principal); I85.11 Secondary esophageal varices with bleeding; K75.81 Nonalcoholic steatohepatitis (NASH); E72.20 Disorder of urea cycle metabolism, unspecified; Z12.11 Encounter for screening for malignant neoplasm of colon
CPT/HCPCS: 36415; 80053; 82105; 82248; 82784; 82785; 82787; 83516; 84165; 85025; 85610; 86037; 86038; 86140; 86225; 86235; 86255; 86334

== ENCOUNTER → 2024-11-11 | Outpatient (CLI) | payer MEDICARE, SELFPAY ==
[2024-11-11 11:58] LABS: Absolute Lymphocyte Count 0.85 X10^3/uL (0.83-4.51); Absolute Neutrophil Count 2.1 X10^3/uL (2.0-7.7); Basophil# 0.06 X10^3/uL; Basophil% 1.6 % (0-1); Eosinophil# 0.31 X10^3/uL; Eosinophils% 8.2 % (0-5); Hematocrit 37.6 % (40-54); Hemoglobin 13.5 g/dL (13.0-16.5); Lymphocyte # 0.85 X10^3/ul (0.83-4.51); Lymphocyte % 22.5 % (19-41); Mean Corp Hgb Conc 35.9 g/dL (32-36); Mean Corpuscular Hgb 34.1 pg (27.0-32.0); Mean Corpuscular Volume 94.9 fL (80-94); Mean Platelet Vol. 11.4 fl (6.2-12.0); Monocyte# 0.48 X10^3/uL; Monocyte% 12.7 % (0-10); NRBC Flagged by Analyzer 0 % (0-5); Neutrophil # 2.06 X10^3/uL (2.7-7.7); Neutrophil % 54.7 % (47-70); Platelet Count 102 K/mm3 (150-450); RBC Distribution Width CV 13.5 % (11.6-14.6); RBC Distribution Width SD 46.2 fl (35.1-43.9); Red Blood Count 3.96 M/mm3 (4.6-6.2); White Blood Count 3.8 K/mm3 (4.4-11.0)
[2024-11-11 12:10] LABS: International Normalized Ratio 1.1; Prothrombin Time (Protime)PT. 14.3 SECONDS (11.7-14.9)
[2024-11-11 12:54] LABS: ALB/GLOB Ratio 1.3 RATIO (0.9-2.4); AST(SGOT) 35 U/L (<=37); Alanine Aminotransfer ALT/SGPT 24 U/L (<=46); Albumin, Serum 4.1 g/dL (3.4-4.8); Alkaline Phosphatase 122 U/L (40-129); Anion Gap 10 (5-15); BUN 18 mg/dL (4-19); BUN/Creat Ratio 12.7 RATIO (10-20); Calcium,Total 9.7 mg/dL (7.6-11.0); Carbon Dioxide 26.1 mmol/L (21.0-32.0); Chloride 102 mmol/L (98-108); Creatinine, Serum 1.42 mg/dL (0.70-1.20); EST Glomerular Filtration Rate 53 (>60); Globulin 3.3 g/dL (2.2-4.2); Glucose 83 mg/dL (70-99); Potassium 4.4 mmol/L (3.3-5.1); Protein, Total 7.3 g/dL (5.9-8.4); Sodium Level 138 mmol/L (133-145); Total Bilirubin 1.01 mg/dL (0.00-1.30)
[2024-11-11 13:09] LABS: CRP < 3.00 mg/L (0.0-3.0); Magnesium 1.9 mg/dL (1.5-2.2)
[2024-11-11 19:10] LABS: Xtra Tube EP Lab EXTRA TUBE
== END | disposition home or self-care (01) ==
LOC: LAB 10:49
PROVIDERS: PCP Family Medicine; Referring Provider Internal Medicine; Visit Provider Internal Medicine
DX: R17 Unspecified jaundice (principal); I85.11 Secondary esophageal varices with bleeding; E72.20 Disorder of urea cycle metabolism, unspecified
CPT/HCPCS: 80053; 83735; 84100; 85025; 85610; 86140

== ENCOUNTER → 2025-05-06 | Outpatient (CLI) | payer MEDICARE, SELFPAY ==
--- NOTE | 2025-05-06 07:51 | CT_ITS ---
PROCEDURE: CT ABD/PELVIS W/WO CONTRAST 05/06/2025 REASON FOR EXAM: CIRRHOSIS, PORTAL HTN Liver lesion. TECHNIQUE: Procedure Code: [id number] Modality: CT Procedure: CT ABD/PELVIS W/WO CONTRAST Coronal and Sagittal reconstruction series were provided. CONTRAST: Isovue 370 VOLUME: 100 mL One or more dose reduction techniques were used (e.g., Automated exposure control, adjustment of the mA and/or kV according to patient size, use of iterative reconstruction technique. RADIATION DOSE SUMMARY: CTDlvol: 50 mGy DLP: 1546 mGycm COMPARISON: September 2021. FINDINGS: Lung bases: Subpleural nodule in the lingula image 6 unchanged and benign. ABDOMEN Liver: Noncontrasted images show no calcifications. Mildly shrunken and diffusely mildly nodular liver but no focal mass or lesion. Biliary system: Negative. Negative for intrahepatic or extrahepatic ductal dilatation. Gallbladder: Negative. Negative for cholecystitis. Spleen: Spleen enlarged and measures 13 by 7 cm. No focal mass. Pancreas: Negative. Adrenals: Negative. Kidneys: Negative. Negative for kidney stones, cysts or masses. Bowel: Moderate increased stool throughout the colon. Negative for small or large-bowel obstruction. Appendix: Not visualized no inflammatory process right lower quadrant. Vasculature: The paraumbilical varices noted. Moderate atherosclerotic vascular calcifications of the abdominal aorta and its branches. Peritoneum / Retroperitoneum: No definitive ascites. Negative. PELVIS Lymph nodes: Negative for inguinal or iliac adenopathy. Bladder: Negative. Reproductive Organs: Mildly prominent prostate. Bones and Soft Tissues: Mild and age appropriate degenerative changes of the lumbar spine hips and pelvis. CT/CT Abd/Pelvis W/WO Contrast IMPRESSION: Cirrhosis with portal hypertension and varices. No focal hepatic mass. Negative for acute intra-abdominal or pelvic pathology. Reading Location: [id number]
== END | disposition home or self-care (01) ==
LOC: CT 07:47
PROVIDERS: PCP Family Medicine; Referring Provider Internal Medicine; Visit Provider Internal Medicine
DX: K75.81 Nonalcoholic steatohepatitis (NASH) (principal); I85.11 Secondary esophageal varices with bleeding; K70.31 Alcoholic cirrhosis of liver with ascites
CPT/HCPCS: 74178; Q9967

== ENCOUNTER → 2025-06-08 | Outpatient (CLI) | payer MEDICARE, SELFPAY ==
[2025-06-08 11:17] LABS: Hematocrit 37.8 % (40-54); Hemoglobin 13.5 g/dL (13.0-16.5); Immature Granulocytes Count 0.010 X10^3/uL (0.0-0.0); Mean Corp Hgb Conc 35.7 g/dL (32-36); Mean Corpuscular Volume 96.2 fL (80-94); Mean Platelet Vol. 11.4 fl (6.2-12.0); NRBC Flagged by Analyzer 0 % (0-5); Platelet Count 105 K/mm3 (150-450); RBC Distribution Width CV 13.5 % (11.6-14.6); RBC Distribution Width SD 48.1 fl (35.1-43.9); Red Blood Count 3.93 M/mm3 (4.6-6.2); White Blood Count 3.4 K/mm3 (4.4-11.0)
[2025-06-08 11:32] LABS: Prothrombin Time (Protime)PT. 14.7 SECONDS (11.7-14.9)
[2025-06-08 12:04] LABS: AST(SGOT) 45 U/L (<=37); Alanine Aminotransfer ALT/SGPT 34 U/L (<=46); Albumin, Serum 4.2 g/dL (3.4-4.8); Alkaline Phosphatase 94 U/L (40-129); Anion Gap 11 (5-15); BUN 21 mg/dL (4-19); BUN/Creat Ratio 17.3 RATIO (10-20); Calcium,Total 9.6 mg/dL (7.6-11.0); Carbon Dioxide 24.5 mmol/L (21.0-32.0); Chloride 101 mmol/L (98-108); Globulin 3.2 g/dL (2.2-4.2); Glucose 99 mg/dL (70-99); LDH 155 U/L (87-241); Potassium 4.1 mmol/L (3.3-5.1)
== END | disposition home or self-care (01) ==
LOC: LAB 10:38
PROVIDERS: Internal Medicine; PCP Family Medicine; Referring Provider Internal Medicine Gastroenterology; Visit Provider Internal Medicine Gastroenterology
DX: K75.81 Nonalcoholic steatohepatitis (NASH) (principal); I85.11 Secondary esophageal varices with bleeding; K70.31 Alcoholic cirrhosis of liver with ascites; E72.20 Disorder of urea cycle metabolism, unspecified
CPT/HCPCS: 36415; 80053; 82105; 83036; 83615; 85025; 85610